=== PATIENT | female | born 1945 | race Caucasian/White ===

== ENCOUNTER 2016-09-25 07:46 | Day surgery (SDC) | payer MEDICARE, BC ==
[~2016-09-25 07:46] MED LIST: Lactated Ringers 1,000 ML IV SCH; Lidocaine 1%/Sod Bicarbonate in NS 8.4% 1 ML Syringe PRN; Sodium Chloride 0.9% 10 ML Syringe FLUSH PRN
--- NOTE | 2016-09-25 09:39 | PCM.PREANE ---
Preanesthetic Assessment - Anesthesia/Transfusion/Family Hx Anesthesia History: Prior Anesthesia Without Reaction Type of Anesthesia Reaction: Other (see below) Family History of Anesthesia Reaction: No Type of Transfusion Reactions: Reports: Unknown - Review of Systems General: No Symptoms Pulmonary: No Symptoms, Shortness of Breath, Other (current smoker, utilizes nebulizers TID, asthma, COPD) Cardiovascular: No Symptoms, Other (HTN) Gastrointestinal: Other (GERD, espphagitis) Other: Reports: Anxiety - Physical Assessment NPO Status Date: 09/24/16 NPO Status Time: 19:00 O2 Sat by Pulse Oximetry: 112 Respiratory Rate: 16 Blood Pressure: 145/84 Vital Signs: Last Vital Signs Temp 36.3 C 09/25/16 07:55 Pulse 112 H 09/25/16 07:55 Resp 16 09/25/16 07:55 BP 145/84 H 09/25/16 07:55 Pulse Ox 95 09/25/16 07:55 Height: 1.73 m Weight: 86.183 kg ASA Class: 3 Mental Status: Alert & Oriented x3 Airway Class: Mallampati = 2 Dentition: Reports: Dentures, Edentulous Thyro-Mental Finger Breadths: 3 Mouth Opening Finger Breadths: 3 ROM/Head Extension: Full Lungs: Clear to auscultation, Wheezing (expiratory wheezes noted) Cardiovascular: Regular Rate, Regular Rhythm - Allergies Allergies/Adverse Reactions: Allergies Allergy/AdvReac Type Severity Reaction Status Date / Time No Known Allergies Allergy Verified 09/25/16 08:34 - Blood Blood Available: No Product(s) Available: None - Anesthesia Plan Pre-Op Medication Ordered: None - Acknowledgements Anesthesia Type Planned: MAC Pt an Appropriate Candidate for the Planned Anesthesia: Yes Alternatives and Risks of Anesthesia Discussed w Pt/Guardian: Yes Pt/Guardian Understands and Agrees with Anesthesia Plan: Yes PreAnesthesia Questionnaire HEENT History: Reports: Glaucoma Respiratory History: Reports: Asthma, COPD Gastrointestinal History: Reports: Colon Polyp, Gastritis, GERD Musculoskeletal History: Reports: Osteoporosis Psychiatric History: Reports: Anxiety, Depression Endocrine/Metabolic History: Reports: Osteoporosis Hematologic History: Reports: Anemia Oncologic (Cancer) History: Reports: None - Past Surgical History HEENT Surgical History: Reports: Adenoidectomy, Cataract Surgery, Laser Surgery , Oral Surgery, Tonsillectomy GI Surgical History: Reports: Colonoscopy, EGD, Polypectomy Oncologic Surgical History: Reports: Biopsy of Breast - SUBSTANCE USE Smoking Status *Q: Current Every Day Smoker Tobacco Use Within Last Twelve Months: Cigarettes Days Per Week of Alcohol Use: 0 Recreational Drug Use History: No - HOME MEDS Home Medications: Home Meds Albuterol Sulfate 1 puff INH ASDIRECTED PRN 11/18/13 [History] Venlafaxine [Effexor] 150 mg PO DAILY 11/18/13 [History] Albuterol/Ipratropium [DuoNeb 3.0-0.5 MG/3 ML] 3 ml INH TID 10/18/15 [History] Budesonide [Pulmicort] 1 puff INH BID 10/18/15 [History] Cyanocobalamin (Vitamin B-12) [Vitamin B-12] 1,000 mcg INJECT WEEKLY 10/18/15 [ History] Denosumab [Prolia] 60 mg SUBCUT ASDIRECTED 10/18/15 [History] LORazepam [Ativan] 1 mg PO ASDIRECTED PRN 10/18/15 [History] Montelukast [Singulair] 10 mg PO DAILY 10/18/15 [History] Olopatadine [Patanol 0.1% Ophth Soln] 1 drop EYEBOTH ASDIRECTED PRN 10/18/15 [ History] Travoprost [Travatan Z 0.004% Ophth Soln] 1 drop EYEBOTH DAILY 10/18/15 [History ] Triamcinolone Acetonide [Nasacort] 1 spray NASBOTH DAILY 10/18/15 [History] busPIRone [Buspar] 5 mg PO DAILY 10/18/15 [History] guaiFENesin [Mucinex] 600 mg PO DAILY 10/18/15 [History] Pantoprazole Sodium [Protonix] 40 mg PO BID #90 tablet. 10/19/15 [Rx] Sucralfate [Carafate] 1 gm PO QIDACANDBED #120 tab 10/19/15 [Rx] - CURRENT (IN HOUSE) MEDS Current Meds: Current Medications Lactated Ringer's (Ringers, Lactated) 1,000 mls @ 125 mls/hr IV ASDIRECTED MAIA Stop: 09/25/16 23:00 Last Admin: 09/25/16 08:07 Dose: 125 mls/hr Lidocaine/Sodium Bicarbonate (Buffered Lidocaine 1% In Ns 8.4%) 0.25 ml .XX ONETIME PRN PRN Reason: Prior to IV Start Stop: 09/25/16 18:00 Last Admin: 09/25/16 08:07 Dose: 0.25 ml Sodium Chloride (Saline Flush) 10 ml FLUSH ASDIRECTED PRN PRN Reason: Keep Vein Open Stop: 09/25/16 18:00
[2016-09-25] MEDS ORDERED: fentaNYL 100 MCG/2 ML SDV ONE (09:51)
[2016-09-25] MEDS ORDERED: Propofol 200 MG/20 ML SDV ONE ×2 (09:51→10:15)
[2016-09-25] MEDS ORDERED: Lidocaine 1% 4 ML ONE (09:52)
--- NOTE | 2016-09-25 10:09 | PCM.OPNOTE ---
- General Post-Op/Procedure Note Date of Surgery/Procedure: 09/25/16 Operative Procedure(s): colonoscopy to 50 c m Pre Op Diagnosis: hx of colonic polyps Post-Op Diagnosis: Same Anesthesia Technique: MAC Primary Surgeon: Hitesh Simental EBL in mLs: 0 Complications: None Condition: Good
--- NOTE | 2016-09-25 10:15 | PCM48HPAN ---
Post Anesthesia Note - EVALUATION WITHIN 48HRS OF ANESTHETIC Vital Signs in Normal Range: Yes Patient Participated in Evaluation: Yes Respiratory Function Stable: Yes Airway Patent: Yes Cardiovascular Function Stable: Yes Hydration Status Stable: Yes Pain Control Satisfactory: Yes Nausea and Vomiting Control Satisfactory: Yes Mental Status Recovered: Yes
[2016-09-25 11:32] VITALS: BP 147/51
--- NOTE | 2016-09-26 07:22 | OR ---
DATE OF OPERATION: 09/25/2016 SURGEON: Hitesh Simental MD PREOPERATIVE DIAGNOSIS: History of colonic polyps. POSTOPERATIVE DIAGNOSIS: History of colonic polyps. OPERATION PERFORMED: Colonoscopy to 50 cm, unable to go beyond this because of inability to expand the colon, control the loop, and advancement of the scope was not possible. ANESTHESIA: IV sedation. FINDINGS: Sigmoid diverticulosis. DESCRIPTION OF PROCEDURE: The patient was taken to the operating room, placed in a supine position, connected to monitoring equipment, given IV sedation, and placed in left lateral position. The perianal area was inspected and was unremarkable. Rectal exam showed good sphincter tone. A video Olympus colonoscope was introduced into the rectum and threaded up to about 40 cm. Unable to advance the scope beyond this, forward movement of the scope would not allow forward progression of the tip of the scope and it would just expand the loop which was not able to be controlled by external pressure. Furthermore, we could not control the expansion of the of the colon for a good view, it would just be expelled, and the nurse was unable to prevent this by external pressure. Prep was excellent. The scope was slowly withdrawn, did not show any pathology other than diverticulosis. A portion of the sigmoid colon and rectum were seen. The patient tolerated the procedure and sent to recovery room in a stable condition. ESTIMATED BLOOD LOSS: MMODAL /[id number]
== END 2016-09-25 11:20 | disposition home or self-care (01) ==
LOC: JD.SDS 07:46
PROVIDERS: ATTEND Surgery
PROC: 0DJD8ZZ Inspection of Lower Intestinal Tract, Via Natural or Artificial Opening Endoscopic (ICD-10-PCS; principal; 2016-09-25)
DX: K57.30 Diverticulosis of large intestine without perforation or abscess without bleeding (principal); K22.10 Ulcer of esophagus without bleeding; K29.70 Gastritis, unspecified, without bleeding; J44.9 Chronic obstructive pulmonary disease, unspecified; M81.0 Age-related osteoporosis without current pathological fracture; D51.0 Vitamin B12 deficiency anemia due to intrinsic factor deficiency; I10 Essential (primary) hypertension; H40.9 Unspecified glaucoma; F32.9 Major depressive disorder, single episode, unspecified; F41.9 Anxiety disorder, unspecified; F17.210 Nicotine dependence, cigarettes, uncomplicated; Z79.899 Other long term (current) drug therapy; Z90.49 Acquired absence of other specified parts of digestive tract; Z98.49 Cataract extraction status, unspecified eye; Z98.890 Other specified postprocedural states; Z86.010 Personal history of colon polyps; Z87.440 Personal history of urinary (tract) infections
CPT/HCPCS: 45330; J3010; J7120; J2704

== ENCOUNTER 2017-11-16 09:06 | Day surgery (SDC) | payer MEDICARE, BC ==
[2017-11-16] MEDS: Lactated Ringers 1,000 ML IV SCH (09:15)
[2017-11-16] MEDS: Lidocaine 1%/Sod Bicarbonate in NS 8.4% 1 ML Syringe IDERM PRN (09:25)
[2017-11-16] MEDS ORDERED: Sodium Chloride 0.9% 10 ML Syringe FLUSH PRN (09:27)
--- NOTE | 2017-11-16 09:57 | PCM.PREANE ---
Preanesthetic Assessment - Procedure Proposed Procedure: Diagnostic colonoscopy - Anesthesia/Transfusion/Family Hx Anesthesia History: Prior Anesthesia Without Reaction Family History of Anesthesia Reaction: No Transfusion History: No Prior Transfusion(s) Type of Transfusion Reactions: Reports: Unknown - Review of Systems General: No Symptoms Pulmonary: Other (Asthma, COPD, current smoker- uses inhaler and nebulizer daiily ) Cardiovascular: Other (HTN) Gastrointestinal: Other (GERD) Neurological: Other (tinnitus ) Other: Reports: Depression, Anxiety - Physical Assessment NPO Status Date: 11/15/17 NPO Status Time: 23:45 O2 Sat by Pulse Oximetry: 99 Respiratory Rate: 16 Vital Signs: Last Vital Signs Temp 37.4 C 11/16/17 09:15 Pulse 88 11/16/17 09:15 Resp 16 11/16/17 09:15 BP 148/75 H 11/16/17 09:15 Pulse Ox 99 11/16/17 09:15 Height: 1.7 m Weight: 73.482 kg ASA Class: 3 Mental Status: Alert & Oriented x3 Airway Class: Mallampati = 1 Dentition: Reports: Dentures (upper and lower ) Thyro-Mental Finger Breadths: 3 Mouth Opening Finger Breadths: 3 ROM/Head Extension: Full Lungs: Clear to Auscultation, Normal Respiratory Effort Cardiovascular: Regular Rate, Regular Rhythm - Allergies Allergies/Adverse Reactions: Allergies Allergy/AdvReac Type Severity Reaction Status Date / Time No Known Allergies Allergy Verified 11/15/17 11:47 - Blood Blood Available: No Product(s) Available: None - Anesthesia Plan Pre-Op Medication Ordered: None - Acknowledgements Anesthesia Type Planned: MAC Pt an Appropriate Candidate for the Planned Anesthesia: Yes Alternatives and Risks of Anesthesia Discussed w Pt/Guardian: Yes Pt/Guardian Understands and Agrees with Anesthesia Plan: Yes PreAnesthesia Questionnaire HEENT History: Reports: Allergic Rhinitis, Glaucoma, Sinusitis Cardiovascular History: Reports: Hypertension Respiratory History: Reports: Asthma, COPD Gastrointestinal History: Reports: Colon Polyp, Gastritis, GERD, Other (See Below) Other Gastrointestinal History: esophagitis, duodenitis, diverticulosis Genitourinary History: Reports: None CLIN TECH History: Reports: Other (See Below) Other OB/BYN History: diffuse cystic mastopathy, breast surgery Musculoskeletal History: Reports: Osteoporosis Neurological History: Reports: None Psychiatric History: Reports: Anxiety, Depression Endocrine/Metabolic History: Reports: Osteoporosis Hematologic History: Reports: Anemia Immunologic History: Reports: None Oncologic (Cancer) History: Reports: None Dermatologic History: Reports: None - Past Surgical History Head Surgeries/Procedures: Reports: None HEENT Surgical History: Reports: Adenoidectomy, Cataract Surgery, Laser Surgery , Oral Surgery, Tonsillectomy Respiratory Surgical History: Reports: None GI Surgical History: Reports: Colonoscopy, EGD, Polypectomy Female Surgical History: Reports: Breast Biopsy Male Surgical History: Reports: None Endocrine Surgical History: Reports: None Neurological Surgical History: Reports: None Musculoskeletal Surgical History: Reports: None Oncologic Surgical History: Reports: Biopsy of Breast Dermatological Surgical History: Reports: None - SUBSTANCE USE Smoking Status *Q: Current Every Day Smoker (1ppd for 47years) Recreational Drug Use History: No - HOME MEDS Home Medications: Home Meds Albuterol Sulfate 1 puff INH ASDIRECTED PRN 11/18/13 [History] Venlafaxine [Effexor] 150 mg PO DAILY 11/18/13 [History] Albuterol/Ipratropium [DuoNeb 3.0-0.5 MG/3 ML] 3 ml INH TID 10/18/15 [History] Budesonide [Pulmicort] 1 dose INH BID 10/18/15 [History] Cyanocobalamin (Vitamin B-12) [Vitamin B-12] 1,000 mcg INJECT Q14D 10/18/15 [ History] Denosumab [Prolia] 60 mg SUBCUT ASDIRECTED 10/18/15 [History] Olopatadine [Patanol 0.1% Ophth Soln] 1 drop EYEBOTH BID PRN 10/18/15 [History] guaiFENesin [Mucinex] 600 mg PO DAILY PRN 10/18/15 [History] Dexamethasone/Tobramycin [Tobradex Ophth Susp] 1 drop EYEBOTH TID 11/15/17 [ History] Ferrous Sulfate [Iron] 1 tab PO DAILY 11/15/17 [History] Fluticasone Propionate [Flonase] 1 - 2 spray NASBOTH DAILY 11/15/17 [History] Fluticasone/Vilanterol [Breo Ellipta 200-25 Mcg INH] 1 puff INH DAILY 11/15/17 [ History] Latanoprost 1 drop EYEBOTH DAILY 11/15/17 [History] Loteprednol Etabonate [Alrex] 1 drop EYEBOTH TID 11/15/17 [History] Melatonin 5 mg PO BEDTIME 11/15/17 [History] Ondansetron [Ondansetron ODT] 4 mg PO Q4H PRN 11/15/17 [History] Rosuvastatin Calcium 5 mg PO DAILY 11/15/17 [History] busPIRone [Buspar] 10 mg PO TID 11/15/17 [History] hydrOXYzine pamoate [Vistaril] 25 mg PO TID PRN 11/15/17 [History] - CURRENT (IN HOUSE) MEDS Current Meds: Current Medications Lactated Ringer's (Ringers, Lactated) 1,000 mls @ 125 mls/hr IV ASDIRECTED MAIA Stop: 11/16/17 23:00 Last Admin: 11/16/17 09:15 Dose: 125 mls/hr Lidocaine/Sodium Bicarbonate (Buffered Lidocaine 1% In Ns 8.4%) 0.25 ml IDERM ONETIME PRN PRN Reason: Prior to IV Start Stop: 11/16/17 18:00 Last Admin: 11/16/17 09:25 Dose: 0.25 ml Sodium Chloride (Saline Flush) 10 ml FLUSH ASDIRECTED PRN PRN Reason: Keep Vein Open Stop: 11/16/17 18:00
[2017-11-16] MEDS ORDERED: fentaNYL 100 MCG/2 ML SDV ONE (10:13)
[2017-11-16] MEDS ORDERED: Propofol 200 MG/20 ML SDV ONE ×3 (10:13→11:34)
[2017-11-16] MEDS ORDERED: Lidocaine 1% 4 ML ONE (10:13)
--- NOTE | 2017-11-16 11:59 | PCM48HPAN ---
Post Anesthesia Note - EVALUATION WITHIN 48HRS OF ANESTHETIC Vital Signs in Normal Range: Yes Patient Participated in Evaluation: Yes Respiratory Function Stable: Yes Airway Patent: Yes Cardiovascular Function Stable: Yes Hydration Status Stable: Yes Pain Control Satisfactory: Yes Nausea and Vomiting Control Satisfactory: Yes Mental Status Recovered: Yes Pulse Rate: 74 SaO2: 92 Resp Rate: 16 Temperature: 36.4 C Blood Pressure: 107/75
--- NOTE | 2017-11-16 12:00 | PCM.OPNOTE ---
- General Post-Op/Procedure Note Date of Surgery/Procedure: 11/16/17 Operative Procedure(s): survillance colonoscopy with polypectomy- incomplete Findings: diffuse small polyps (1-3mm) in the rectum and sigmoid colon; large diverticula in the sigmoid and inability to pass scope through the colon past the sigmoid a at 25cm Pre Op Diagnosis: history of colon polyps Post-Op Diagnosis: history of colon polyps Anesthesia Technique: MAC Primary Surgeon: Ella Sanches Secondary Surgeon: Hitesh Simental Anesthesia Provider: Adam Piedra Pathology: 1. Sigmoid polyp 2. Sigmoid polyp 3. Rectum polyp Fluid Replacement, Intraop: 1,200 Output, Urine Amount: 0 EBL in mLs: 0 Complications: None apparent Condition: Good
[2017-11-16 12:21] VITALS: BP 107/66
--- NOTE | 2017-11-16 13:09 | PCM.PRNOTE ---
- Free Text/Narrative Note: Operative Report Date of Surgery/Procedure: 11/16/17 Operative Procedure: Surveillance Colonoscopy with biopsy- incomplete Pre Op Diagnosis: colorectal cancer surveillance Post-Op Diagnosis: same Surgeon: Ella Sanches MD and Hitesh Simental MD Anesthesia Technique: MAC Anesthesia Provider: Adam Piedra IV Fluid Replacement, Intraop: 1200 cc Output, Urine Amount: , 0 cc EBL : 0 cc Findings: Diffuse small polyps (1-3 mm). In the rectum and sigmoid. Inability to traverse past the sigmoid, approximately 25 cm due to diverticula and patient anatomy. Procedure terminated at this point, after multiple unsucessful attempts to pass through this area. Specimens: 1. Sigmoid polyp 2. Sigmoid polyp 3. Rectum polyp Indication: The patient is a 72 year-old lady who presented to the outpatient clinic requesting colorectal cancer surveillance screening. The patient has a history of . Colon polyps that revealed tubular adenoma, as well as some other pathology. She reports that her previous colonoscopy experience was very traumatic and was very hesitant to undergo repeat colonoscopy because of her anxiety. We discussed the procedure of a surveillance colonoscopy including the polypectomy and biopsy, and the benefits of therapeutic and diagnostic maneuvers available with colonoscopy. Risks of bleeding and perforation were discussed, the patient understood and wished to proceed. Written and consent was obtained Description of the procedure: The patient was brought to the endoscopy suite and placed in the left lateral decubitus position. Appropriate monitors were applied. The patient was given MAC anesthesia. An anorectal examination was performed, revealing normal external anatomy. The scope was placed into the rectum and advanced to the sigmoid colon with some difficulty requiring multiple attempts and abdominal pressure. There were many folds in the colon as well as large diverticula that looked like false passages. The scope could not be advanced past 25 cm without risk of perforation. At this point, the scope was withdrawn, paying careful attention to the mucosa. The patient had adequate bowel prep, allowing for visualization of 85 % of the mucosa. Multiple, diffuse small polyps (1-3mm) in the rectum and sigmoid was noted. Biopsies were taken of the sigmoid and rectum polyps In the rectum, the scope was unable to be retroflexed. the procedure was terminated. The patient tolerated the procedure well. She will follow up in my office for discussion of pathology. I would recommend a barium enema at this point to complete screening of the colon. I notified the patient of my recommendation. Complications: none apparent Condition: Good, transported to PACU in stable condition Ella Sanches MD General Surgery
== END 2017-11-16 12:51 | disposition home or self-care (01) ==
LOC: JD.SDS 09:06
PROVIDERS: ATTEND Surgery
DX: Z12.11 Encounter for screening for malignant neoplasm of colon (principal); K63.5 Polyp of colon; K62.1 Rectal polyp; K57.30 Diverticulosis of large intestine without perforation or abscess without bleeding; J44.9 Chronic obstructive pulmonary disease, unspecified; I10 Essential (primary) hypertension; F17.210 Nicotine dependence, cigarettes, uncomplicated; F41.8 Other specified anxiety disorders; K21.9 Gastro-esophageal reflux disease without esophagitis; Z86.010 Personal history of colon polyps; Z79.51 Long term (current) use of inhaled steroids; Z79.899 Other long term (current) drug therapy
CPT/HCPCS: 00811; 88305; J2001; J2704; J3010; J7120

== ENCOUNTER 2018-05-26 11:28 | Emergency (ER) | payer MEDICARE, BC ==
[2018-05-26 11:40] VITALS: BP 167/85
[2018-05-26] MEDS ORDERED: Ondansetron 4 MG/2 ML SDV IVPUSH ONE (12:02)
[2018-05-26] MEDS ORDERED: Sodium Chloride 0.9% 1,000 ML IV ONE (12:05)
--- NOTE | 2018-05-26 12:12 | EDM.PDOC ---
ED HPI GENERAL MEDICAL PROBLEM - General Chief Complaint: General Stated Complaint: LOWER RIGHT ABDOMINAL PAIN Time Seen by Provider: 05/26/18 11:43 Source of Information: Reports: Patient, RN Notes Reviewed History Limitations: Reports: No Limitations - History of Present Illness INITIAL COMMENTS - FREE TEXT/NARRATIVE: Patient is a 72-year-old female who presents to the ED for evaluation of right lower quadrant pain. The patient states that she has been to the clinic last week for a possible vaginal infection for which she is taking a vaginal suppository and an oral antibiotic. She thinks that the vaginal suppository was metronidazole and the oral antibiotic was a azithromycin. She did see Phyllis Ardon in the clinic last week for this. She was told that if the pain worsened that she was to come to the ER for evaluation. She states her primary care provider is Lucia Ramirez. She would rate her pain at a 7 or 8 out of 10. She states that the pain is worsened with urination. She states this to be a sharp pain in nature. She noted this morning when she voided that there was discharge present. The patient is but denies sexual activity. The patient notes a history of anxiety, and she was treated for interstitial cystitis quite a few years back. She also states that she had an MRI done last month, and she was found to have some right lower abdominal abnormality. She states that they have not told her exactly what this was or have figured it out completely, she states that she has a follow-up MRI scheduled for June 05 for this. She states that she is not having much for nausea/vomiting/diarrhea, she did have a normal bowel movement this morning. She cannot say whether she has had fevers or chills but has not felt hot or cold. She notes that she is just having this right lower quadrant abdominal pain. She has not had any abdominal surgeries so subsequently still has her uterus, ovaries, and her appendix. 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 Right Pelvic Pain Score (Numeric/FACES): 8 - Related Data Allergies Allergy/AdvReac Type Severity Reaction Status Date / Time No Known Allergies Allergy Verified 05/26/18 11:37 Home Meds: Home Meds Albuterol Sulfate 1 puff INH ASDIRECTED PRN 11/18/13 [History] Venlafaxine [Effexor] 150 mg PO DAILY 11/18/13 [History] Albuterol/Ipratropium [DuoNeb 3.0-0.5 MG/3 ML] 3 ml INH TID 10/18/15 [History] Budesonide [Pulmicort] 1 dose INH BID 10/18/15 [History] Cyanocobalamin (Vitamin B-12) [Vitamin B-12] 1,000 mcg INJECT Q14D 10/18/15 [ History] Denosumab [Prolia] 60 mg SUBCUT ASDIRECTED 10/18/15 [History] Olopatadine [Patanol 0.1% Ophth Soln] 1 drop EYEBOTH BID PRN 10/18/15 [History] guaiFENesin [Mucinex] 600 mg PO DAILY PRN 10/18/15 [History] Dexamethasone/Tobramycin [Tobradex Ophth Susp] 1 drop EYEBOTH TID 11/15/17 [ History] Ferrous Sulfate [Iron] 1 tab PO DAILY 11/15/17 [History] Fluticasone Propionate [Flonase] 1 - 2 spray NASBOTH DAILY 11/15/17 [History] Fluticasone/Vilanterol [Breo Ellipta 200-25 Mcg INH] 1 puff INH DAILY 11/15/17 [ History] Latanoprost 1 drop EYEBOTH DAILY 11/15/17 [History] Loteprednol Etabonate [Alrex] 1 drop EYEBOTH TID 11/15/17 [History] Melatonin 5 mg PO BEDTIME 11/15/17 [History] Ondansetron [Ondansetron ODT] 4 mg PO Q4H PRN 11/15/17 [History] Rosuvastatin Calcium 5 mg PO DAILY 11/15/17 [History] busPIRone [Buspar] 10 mg PO TID 11/15/17 [History] hydrOXYzine pamoate [Vistaril] 25 mg PO TID PRN 11/15/17 [History] Past Medical History HEENT History: Reports: Allergic Rhinitis, Glaucoma, Sinusitis Cardiovascular History: Reports: Hypertension Respiratory History: Reports: Asthma, COPD Gastrointestinal History: Reports: Colon Polyp, Gastritis, GERD, Other (See Below) Other Gastrointestinal History: esophagitis, duodenitis, diverticulosis Genitourinary History: Reports: None 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 Below) Other SALES PLANNING ANALYST History: diffuse cystic mastopathy, breast surgery Musculoskeletal History: Reports: Osteoporosis Neurological History: Reports: None Psychiatric History: Reports: Anxiety, Depression Endocrine/Metabolic History: Reports: Osteoporosis Hematologic History: Reports: Anemia, Other (See Below) Other Hematologic History: pernicious anemia Immunologic History: Reports: None Oncologic (Cancer) History: Reports: None Dermatologic History: Reports: None - Past Surgical History Head Surgeries/Procedures: Reports: None HEENT Surgical History: Reports: Adenoidectomy, Cataract Surgery, Laser Surgery , Oral Surgery, Tonsillectomy Respiratory Surgical History: Reports: None GI Surgical History: Reports: Colonoscopy, EGD, Polypectomy Female Surgical History: Reports: Breast Biopsy Endocrine Surgical History: Reports: None Neurological Surgical History: Reports: None Musculoskeletal Surgical History: Reports: None Oncologic Surgical History: Reports: Biopsy of Breast Dermatological Surgical History: Reports: None Social & Family History - Tobacco Use Smoking Status *Q: Current Every Day Smoker Years of Tobacco use: 42 Packs/Tins Daily: 0.2 - Caffeine Use Caffeine Use: Reports: Coffee - Recreational Drug Use Recreational Drug Use: No - Living Situation & Occupation Living situation: Reports: ED ROS GENERAL - Review of Systems Review Of Systems: See Below Constitutional: Reports: No Symptoms HEENT: Reports: No Symptoms Respiratory: Reports: No Symptoms Cardiovascular: Reports: No Symptoms, Palpitations GI/Abdominal: Reports: Abdominal Pain (RLQ) : Reports: Discharge, Dysuria. Denies: Hematuria, Urgency Musculoskeletal: Reports: No Symptoms Skin: Reports: No Symptoms Neurological: Reports: No Symptoms Psychiatric: Reports: No Symptoms Hematologic/Lymphatic: Reports: No Symptoms ED EXAM, GENERAL - Physical Exam Exam: See Below Exam Limited By: No Limitations General Appearance: Alert, WD/WN, No Apparent Distress Ears: Normal External Exam Nose: Normal Inspection Throat/Mouth: Normal Inspection, Normal Oropharynx, No Airway Compromise Head: Atraumatic, Normocephalic Neck: Normal Inspection Respiratory/Chest: No Respiratory Distress, Lungs Clear, Normal Breath Sounds, No Accessory Muscle Use, Chest Non-Tender Cardiovascular: Normal Peripheral Pulses, Regular Rate, Rhythm, No Murmur GI/Abdominal: Normal Bowel Sounds, Soft, No Distention, No Mass, Tender (RLQ tenderness over McBurney's point, slight tenderness over epigastrium). No: Rigid, Rebound (Female) Exam: Normal External Exam, Normal Speculum Exam, Adnexal Tenderness (Right sided), Vaginal Discharge (scant amount of white discharge present in vaginal vault), Other (there is either a full bladder present, or enlarged/hardened uterus on bimanual exam.) Extremities: Normal Inspection, Normal Capillary Refill Neurological: Alert, Oriented, Normal Cognition, No Motor/Sensory Deficits Psychiatric: Normal Affect, Normal Mood Skin Exam: Warm, Dry, Intact, Normal Color, No Rash Course - Vital Signs Last Recorded V/S: Last Vital Signs Temp 97 F 05/26/18 11:37 Pulse 93 05/26/18 11:37 Resp 20 05/26/18 11:37 BP 167/85 H 05/26/18 11:37 Pulse Ox 100 05/26/18 11:37 - Orders/Labs/Meds Orders: Active Orders 24 hr Category Date Time Status CULTURE URINE [RM] Stat Lab 05/26/18 13:39 Ordered Sodium Chloride 0.9% [Normal Saline] 1,000 ml Med 05/26/18 12:05 Ordered IV ASDIRECTED Sodium Chloride 0.9% [Saline Flush] Med 05/26/18 13:33 Active 10 ml FLUSH ONETIME PRN Medication Orders Sodium Chloride (Normal Saline) 1,000 mls @ 250 mls/hr IV ASDIRECTED ONE Stop: 05/26/18 16:04 Last Admin: 05/26/18 12:19 Dose: 250 mls/hr Sodium Chloride (Saline Flush) 10 ml FLUSH ONETIME PRN PRN Reason: IV FLUSH Last Admin: 05/26/18 13:54 Dose: 10 ml Labs: Laboratory Tests 05/26/18 05/26/18 05/26/18 Range/Units 12:10 12:10 12:38 WBC 9.75 (3.98-10.04) K/mm3 RBC 3.89 L (3.98-5.22) M/mm3 Hgb 12.6 (11.2-15.7) gm/L Hct 39.4 (34.1-44.9) % MCV 101.3 H (79.4-94.8) fl MCH 32.4 H (25.6-32.2) pg MCHC 32.0 L (32.2-35.5) g/dl RDW Std Deviation 49.0 H (36.4-46.3) fL Plt Count 235 (182-369) K/mm3 MPV 9.5 (9.4-12.3) fl Neutrophils % (Manual) 70 H (40-60) % Band Neutrophils % 0 (0-10) % Lymphocytes % (Manual) 25 (20-40) % Atypical Lymphs % 0 % Monocytes % (Manual) 4 (2-10) % Eosinophils % (Manual) 0 L (0.7-5.8) % Basophils % (Manual) 1 (0.1-1.2) Toxic Granulation 1+ slight Platelet Estimate Adequate Plt Morphology Comment Normal Hypochromasia 1+ slight Anisocytosis 1+ slight Macrocytosis 1+ slight RBC Morph Comment Not Reportable Sodium 142 (136-145) mEq/L Potassium 3.4 L (3.5-5.1) mEq/L Chloride 106 (98-107) mEq/L Carbon Dioxide 29 (21-32) mEq/L Anion Gap 10.4 (5-15) BUN 23 H (7-18) mg/dL Creatinine 1.4 H (0.55-1.02) mg/dL Est Cr Clr Drug Dosing 36.36 mL/min Estimated GFR (MDRD) 37 (>60) mL/min BUN/Creatinine Ratio 16.4 (14-18) Glucose 93 (80-115) mg/dL Calcium 8.7 (8.5-10.1) mg/dL Total Bilirubin 0.4 (0.2-1.0) mg/dL AST 15 (15-37) U/L ALT 21 (14-59) U/L Alkaline Phosphatase 57 (46-116) U/L C-Reactive Protein < 0.2 (<1.0) mg/dL Total Protein 6.4 (6.4-8.2) g/dl Albumin 3.1 L (3.4-5.0) g/dl Globulin 3.3 gm/dL Albumin/Globulin Ratio 0.9 L (1-2) Lipase 283 (73-393) U/L Urine Color Dark yellow (Yellow) Urine Appearance Clear (Clear) Urine pH 6.0 (5.0-8.0) Ur Specific [place] 1.020 (1.005-1.030) Urine Protein Negative (Negative) Urine Glucose (UA) Negative (Negative) Urine Ketones Trace H (Negative) Urine Occult Blood Negative (Negative) Urine Nitrite Negative (Negative) Urine Bilirubin Negative (Negative) Urine Urobilinogen 0.2 (0.2-1.0) Ur Leukocyte Esterase Trace H (Negative) Urine RBC 0-5 (0-5) /hpf Urine WBC 0-5 (0-5) /hpf Ur Epithelial Cells 0-5 (0-5) /hpf Urine Bacteria Moderate H (FEW) /hpf Hyaline Casts 0-5 (0-5) /lpf Urine Mucus Moderate H (FEW) /hpf Meds: Medications Generic Name Dose Route Start Last Admin Trade Name Freq PRN Reason Stop Dose Admin Sodium Chloride 1,000 mls @ 250 mls/hr 05/26/18 12:05 05/26/18 12:19 Normal Saline IV 05/26/18 16:04 250 mls/hr ASDIRECTED ONE Administration Sodium Chloride 10 ml 05/26/18 13:33 05/26/18 13:54 Saline Flush FLUSH 10 ml ONETIME PRN Administration IV FLUSH Discontinued Medications Generic Name Dose Route Start Last Admin Trade Name Freq PRN Reason Stop Dose Admin Diatrizoate Meglum/Diatrizoate Sod 120 ml 05/26/18 13:33 05/26/18 13:54 Gastrografin 37% PO 05/26/18 13:34 90 ml ONETIME ONE Administration Iopamidol 100 ml 05/26/18 13:33 05/26/18 13:54 Isovue-300 (61%) IVPUSH 05/26/18 13:34 100 ml ONETIME ONE Administration Ondansetron HCl 4 mg 05/26/18 12:02 05/26/18 12:19 Zofran IVPUSH 05/26/18 12:03 4 mg ONETIME ONE Administration - Radiology Interpretation Free Text/Narrative:: CT abdomen and pelvis Technique: Multiple axial sections were obtained from above the dome of the diaphragm inferiorly through the pubic symphysis. Intravenous and oral contrast was utilized. Delayed images were also obtained from above the dome of the diaphragm inferiorly through the pubic symphysis. Comparison: No prior abdominal imaging. Findings: Soft tissue abnormality is seen within the right side of the pelvis. This appears to extend around the terminal ileum and extending into the ileocecal valve. This abnormality has a craniocaudal dimension of 7.8 cm with transverse dimension of 3.5 cm and AP dimension of approximately 9.3 cm. Small amount of free fluid noted within the pelvis. Right kidney shows rather severe hydronephrosis with dilated ureter down to this pelvic mass. This finding causes obstruction of the right ureter. This finding is most likely neoplastic in origin. Less likely etiology would be very prominent inflammatory change which is felt to be much less likely in etiology. Left kidney shows no hydronephrosis. Left ureter on delayed images shows contrast within it down to the bladder. Visualized lung bases shows a small nodule within the right base measuring around 3.5 mm. Lung bases are otherwise clear. Small hiatal hernia is noted. Spleen appears within normal limits. Liver contains no focal abnormality. Appendix is seen and is normal in size. Pancreas appears within normal limits. Adrenal glands show no nodule. Gallbladder contains no calcified gallstones. Aorta shows no aneurysm with atherosclerotic change. No retroperitoneal adenopathy is seen. No mesenteric abnormalities are seen. No additional pelvic abnormality is appreciated. Bone window settings were reviewed which shows scattered degenerative change within the spine. No acute osseous abnormality is appreciated. Impression: 1. Soft tissue mass within the right side of the pelvis extending around the terminal ileum into the ileocecal valve. Findings most likely are neoplastic and uncertain if this represents tumor from the ileocecal valve and terminal ileum or represents ovarian or other pelvic tumor extending into the ileocecal valve and around the terminal ileum. 2. Fairly severe hydronephrosis of the right kidney and right ureter. This finding appears to be caused by the right sided pelvic mass. 3. Small amount of increased fluid within the pelvis. 4. Small nonspecific 3.5 mm nodule within the right lung base. 5. No other acute abnormality is seen. - Re-Assessments/Exams Free Text/Narrative Re-Assessment/Exam: 05/26/18 12:18 Pt presents to the ED for RLQ pain. I have ordered a UA, CRP, CBC, CMP, lipase, IV fluids, 4 mg Zo[address] and abdominal CT for evaluation of her RLQ pain. Due to her reported history of "something wrong" in her right lower abdomen, I cannot be certain that this may be an appendix issue vs. ovary issue. Pt is on appropriate antibiotics for possible BV (I am assuming this is what she is being treated for, although she did not bring her medications with her and she thought metronidazole sounded right). 05/26/18 13:42 Labs have returned and are essentially within normal limits. She does have anemia but she states that she has a history of pernicious anemia, for which she takes B12 shots. Lipase is within normal limits, and her urine shows no acute signs of infection, however I am going to send this for culture. 05/26/18 15:25 CT results are back and demonstrate that she does in fact have a mass in her right pelvic area, as she stated per her history. Our radiologist feels that this is neoplastic in origin and cannot differentiate if it is coming from the colon or is ovarian in nature. I did make the patient aware of this this news, I have sent an order for an outpatient PET scan. I am hoping that radiology will call her first thing tomorrow to get this scheduled with her for further evaluation. I did recommend that she call Lucia Ramirez's office for a follow- up appointment tomorrow or the next day for further evaluation of this pelvic mass. I am aware however that she did have an MRI and there was a mass present at that time one month ago, what I am not sure of his if they made her aware of what they thought it could be. The patient does understand that this is strongly suggestive of being cancerous. Departure - Departure Time of Disposition: 15:29 Disposition: Home, Self-Care 01 Condition: Fair Clinical Impression: RLQ abdominal pain, Pelvic mass in female - Discharge Information *PRESCRIPTION DRUG MONITORING PROGRAM REVIEWED*: No *COPY OF PRESCRIPTION DRUG MONITORING REPORT IN PATIENT FILIBERTO: No Referrals: Lucia Ramirez PA-C [Primary Care Provider] - Forms: ED Department Discharge Additional Instructions: You have been evaluated in the ED today for your right lower quadrant pain. Your labs were not suggestive of any type of bacterial infection. Your urine screen was sent for culture, You will be notified if you need any further treatment for urinary infection. Your CT scan done today, however, did demonstrate that you have a pelvic mass, this is strongly felt to be cancerous in origin. An order has been given to radiology for an outpatient PET scan, our radiology department should call you tomorrow with the time for this. I recommend that you follow up with your primary provider Lucia Ramirez for the results of this scan. I again strongly recommend that you follow up with Lucia Ramirez tomorrow or the next day if able for further evaluation of this mass in question. Please return to the ED if her symptoms change or worsen. - My Orders Last 24 Hours: My Active Orders 05/26/18 12:05 Sodium Chloride 0.9% [Normal Saline] 1,000 ml IV ASDIRECTED 05/26/18 13:33 Sodium Chloride 0.9% [Saline Flush] 10 ml FLUSH ONETIME PRN 05/26/18 13:39 CULTURE URINE [RM] Stat - Assessment/Plan Last 24 Hours: My Active Orders 05/26/18 12:05 Sodium Chloride 0.9% [Normal Saline] 1,000 ml IV ASDIRECTED 05/26/18 13:33 Sodium Chloride 0.9% [Saline Flush] 10 ml FLUSH ONETIME PRN 05/26/18 13:39 CULTURE URINE [RM] Stat
[2018-05-26] MEDS ORDERED: Iopamidol 612 MG/ML 100 ML Bottle IVPUSH ONE (13:33)
[2018-05-26] MEDS ORDERED: Diatrizoate Meglumine/Diatrizoate Sodium 37% 120 ML Bottle PO ONE (13:33)
[2018-05-26] MEDS ORDERED: Sodium Chloride 0.9% 10 ML Syringe FLUSH PRN (13:33)
--- NOTE | 2018-05-26 14:21 | CT ---
CT abdomen and pelvis Technique: Multiple axial sections were obtained from above the dome of the diaphragm inferiorly through the pubic symphysis. Intravenous and oral contrast was utilized. Delayed images were also obtained from above the dome of the diaphragm inferiorly through the pubic symphysis. Comparison: No prior abdominal imaging. Findings: Soft tissue abnormality is seen within the right side of the pelvis. This appears to extend around the terminal ileum and extending into the ileocecal valve. This abnormality has a craniocaudal dimension of 7.8 cm with transverse dimension of 3.5 cm and AP dimension of approximately 9.3 cm. Small amount of free fluid noted within the pelvis. Right kidney shows rather severe hydronephrosis with dilated ureter down to this pelvic mass. This finding causes obstruction of the right ureter. This finding is most likely neoplastic in origin. Less likely etiology would be very prominent inflammatory change which is felt to be much less likely in etiology. Left kidney shows no hydronephrosis. Left ureter on delayed images shows contrast within it down to the bladder. Visualized lung bases shows a small nodule within the right base measuring around 3.5 mm. Lung bases are otherwise clear. Small hiatal hernia is noted. Spleen appears within normal limits. Liver contains no focal abnormality. Appendix is seen and is normal in size. Pancreas appears within normal limits. Adrenal glands show no nodule. Gallbladder contains no calcified gallstones. Aorta shows no aneurysm with atherosclerotic change. No retroperitoneal adenopathy is seen. No mesenteric abnormalities are seen. No additional pelvic abnormality is appreciated. Bone window settings were reviewed which shows scattered degenerative change within the spine. No acute osseous abnormality is appreciated. Impression: 1. Soft tissue mass within the right side of the pelvis extending around the terminal ileum into the ileocecal valve. Findings most likely are neoplastic and uncertain if this represents tumor from the ileocecal valve and terminal ileum or represents ovarian or other pelvic tumor extending into the ileocecal valve and around the terminal ileum. 2. Fairly severe hydronephrosis of the right kidney and right ureter. This finding appears to be caused by the right sided pelvic mass. 3. Small amount of increased fluid within the pelvis. 4. Small nonspecific 3.5 mm nodule within the right lung base. 5. No other acute abnormality is seen. Diagnostic code #9
== END 2018-05-26 15:47 | disposition home or self-care (01) ==
LOC: JD.ED 11:28
DX: R19.00 Intra-abdominal and pelvic swelling, mass and lump, unspecified site (principal); I10 Essential (primary) hypertension; F17.210 Nicotine dependence, cigarettes, uncomplicated; J44.9 Chronic obstructive pulmonary disease, unspecified; K21.9 Gastro-esophageal reflux disease without esophagitis; F41.9 Anxiety disorder, unspecified; F32.9 Major depressive disorder, single episode, unspecified; D64.9 Anemia, unspecified; Z79.899 Other long term (current) drug therapy
CPT/HCPCS: 36415; 74177; 80053; 81001; 83690; 85007; 85027; 86140; 87086; 96361; 96374; 99284; J2405; J7040; Q9963; Q9967

== ENCOUNTER 2018-06-02 12:11 | Emergency (ER) | payer MEDICARE, BC ==
--- NOTE | 2018-06-02 12:25 | EDM.PDOC ---
ED HPI GENERAL MEDICAL PROBLEM - General Chief Complaint: Abdominal Pain Stated Complaint: PAIN ON RIGHT LOWER STOMACH Time Seen by Provider: 06/02/18 12:25 Source of Information: Reports: Patient History Limitations: Reports: No Limitations - History of Present Illness INITIAL COMMENTS - FREE TEXT/NARRATIVE: 72-year-old female presents to the ED primarily with right lower quadrant abdominal pain. Patient has been having increasing right lower quadrant abdominal pain for the last 3-4 months. She reports a 50 pound weight loss over the last 3 months. And done on May 26 when she was seen through the ED identified a soft tissue abnormality within the right side of the pelvis. This appears to extend around the terminal ileum and extending into the ileocecal valve. This abnormality has a craniocaudal dimension of 7.8 cm with a transverse dimension of 3.5 cm in AP dimension of approximately 9.3 cm small amount of free fluid noted within the pelvis. The right kidney shows rather severe hydronephrosis with dilated ureter down to this pelvic mass. This finding causes obstruction of the right ureter this finding is most likely neoplastic in origin. Less likely etiology would be very prominent inflammatory change which is felt to be much less likely. Left kidney showed no hydronephrosis left ureter on delayed images show contrast down to the bladder. She lies lung bases show a small nodule within the right lung base measuring around 3.5 mm. Small hiatal hernia is appreciated spleen appear to be within normal limits liver contained no focal abnormality. Appendix is seen and is normal in size. Pancreas appeared to be within normal limits. Adrenal glands show no nodule gallbladder contains no calcified gallstones. Aorta shows no aneurysm with atherosclerotic changes. No retroperitoneal adenopathy is seen no mesenteric abnormalities are seen bone windows reveals scattered degenerative changes within the spine. No osseous abnormalities were appreciated. She has had no previous abdominal surgery. She is a cigarette smoker. She has a feeling of incomplete bladder emptying. She comes to the ED today primarily for pain management. He states her bowels are very sluggish in movement. She is eating but forcing herself to eat as she has absolutely no appetite. This is concerning for possible metastatic disease to the liver. Also she could be suffering uremia causing her to lose her appetite. Plan routine labs to be done including a urinalysis and postvoid bladder scan. One view of the abdomen to rule out bowel obstruction. I have her renal function back I will discuss this with urology as to whether or not an attempt should be done to place a ureteric stent versus nephrostomy tube to salvage the right kidney. Her appointment in [place] to see the oncology ladle builder is on Sunday next week which means she would not be getting any surgery until the next week. Plan IV D5 normal saline at open. Given Dilaudid 0.5 mg IV with Zofran 4 mg IV at this time. Onset: Unknown/Unsure (Has been having gradually worsening right lower quadrant pain for the last 3-4 months. It is constant but lately has been sharp and stabbing as well) Duration: Chronic, Getting Worse Location: Reports: Abdomen (Right lower quadrant of the abdomen. 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 Denies: Activity , Exercise, Lifting, Sick Contact, Trauma Associated Symptoms: Reports: Loss of Appetite, Malaise, Nausea/Vomiting, Weakness (Generalized weakness). Denies: Confusion, Chest Pain, Cough, cough w sputum, Diaphoresis, Fever/Chills, Headaches (50 pound weight loss over the last 3 months), Rash, Seizure (Occasional nausea), Shortness of Breath, Syncope Treatments POLISHER BRASS: Reports: Other (see below) (Currently on antibiotics for 3 days for urinary tract infection.) Right Upper Abdomen Pain Score (Numeric/FACES): 9 - Related Data Allergies Allergy/AdvReac Type Severity Reaction Status Date / Time No Known Allergies Allergy Verified 06/02/18 12:23 Home Meds: Home Meds Albuterol Sulfate 1 puff INH ASDIRECTED PRN 11/18/13 [History] Venlafaxine [Effexor] 150 mg PO DAILY 11/18/13 [History] Albuterol/Ipratropium [DuoNeb 3.0-0.5 MG/3 ML] 3 ml INH TID 10/18/15 [History] Budesonide [Pulmicort] 1 dose INH BID 10/18/15 [History] Cyanocobalamin (Vitamin B-12) [Vitamin B-12] 1,000 mcg INJECT Q14D 10/18/15 [ History] Denosumab [Prolia] 60 mg SUBCUT ASDIRECTED 10/18/15 [History] Olopatadine [Patanol 0.1% Ophth Soln] 1 drop EYEBOTH BID PRN 10/18/15 [History] guaiFENesin [Mucinex] 600 mg PO DAILY PRN 10/18/15 [History] Dexamethasone/Tobramycin [Tobradex Ophth Susp] 1 drop EYEBOTH TID 11/15/17 [ History] Ferrous Sulfate [Iron] 1 tab PO DAILY 11/15/17 [History] Fluticasone Propionate [Flonase] 1 - 2 spray NASBOTH DAILY 11/15/17 [History] Fluticasone/Vilanterol [Breo Ellipta 200-25 Mcg INH] 1 puff INH DAILY 11/15/17 [ History] Latanoprost 1 drop EYEBOTH DAILY 11/15/17 [History] Loteprednol Etabonate [Alrex] 1 drop EYEBOTH TID 11/15/17 [History] Melatonin 5 mg PO BEDTIME 11/15/17 [History] Ondansetron [Ondansetron ODT] 4 mg PO Q4H PRN 11/15/17 [History] Rosuvastatin Calcium 5 mg PO DAILY 11/15/17 [History] busPIRone [Buspar] 10 mg PO TID 11/15/17 [History] hydrOXYzine pamoate [Vistaril] 25 mg PO TID PRN 11/15/17 [History] Past Medical History HEENT History: Reports: Allergic Rhinitis, Glaucoma, Sinusitis Cardiovascular History: Reports: Hypertension Respiratory History: Reports: Asthma, COPD Gastrointestinal History: Reports: Colon Polyp, Gastritis, GERD, Other (See Below) Other Gastrointestinal History: esophagitis, duodenitis, diverticulosis Genitourinary History: Reports: None [employer] MANAGER History: Reports: Other (See Below) Other [employer]ENT[employer] AG[employer]Y MANAGER History: diffuse cystic mastopathy, breast surgery Musculoskeletal History: Reports: Osteoporosis Neurological History: Reports: None Psychiatric History: Reports: Anxiety, Depression Endocrine/Metabolic History: Reports: Osteoporosis Hematologic History: Reports: Anemia, Other (See Below) Other Hematologic History: pernicious anemia Immunologic History: Reports: None Oncologic (Cancer) History: Reports: None Dermatologic History: Reports: None - Past Surgical History Head Surgeries/Procedures: Reports: None HEENT Surgical History: Reports: Adenoidectomy, Cataract Surgery, Laser Surgery , Oral Surgery, Tonsillectomy Respiratory Surgical History: Reports: None GI Surgical History: Reports: Colonoscopy, EGD, Polypectomy Female Surgical History: Reports: Breast Biopsy Endocrine Surgical History: Reports: None Neurological Surgical History: Reports: None Musculoskeletal Surgical History: Reports: None Oncologic Surgical History: Reports: Biopsy of Breast Dermatological Surgical History: Reports: None Social & Family History - Tobacco Use Smoking Status *Q: Former Smoker - Caffeine Use Caffeine Use: Reports: Coffee - Living Situation & Occupation Living situation: Reports: ED ROS GENERAL - Review of Systems Review Of Systems: See Below Constitutional: Reports: Malaise, Weakness, Fatigue, Decreased Appetite (50 pounds in the last 3 months forces herself to eat as she has no appetite), Weight Loss. Denies: Fever, Chills HEENT: Reports: Glasses Respiratory: Reports: Shortness of Breath, Wheezing, Cough (Occasional cough with very little sputum production. Has COPD from cigarette smoking does use inhalers.). 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 Denies: Diarrhea, Difficulty Swallowing, Flatus, Hematemesis, Hematochezia, Melena, Stool Incontinence : Reports: Flank Pain (Right flank pressure is continuous.), Frequency. Denies: No Symptoms, Discharge, Dysuria, Incontinence, Irregular Menses, Pain, Urgency, Urinary Retention Musculoskeletal: Reports: Back Pain (Diffuse flank pain right sided low back pain on the right side) Skin: Reports: Other (Has a grayish color to her from cigarette smoking) Neurological: Reports: No Symptoms Psychiatric: Reports: No Symptoms Hematologic/Lymphatic: Reports: No Symptoms Immunologic: Reports: No Symptoms ED EXAM, GI/ABD - Physical Exam Exam: See Below Exam Limited By: No Limitations General Appearance: Alert, WD/WN, Moderate Distress (Moderately anxious.) Eyes: Bilateral: Normal Appearance Throat/Mouth: Normal Inspection, Normal Lips, Normal Oropharynx Head: Atraumatic, Normocephalic Neck: Normal Inspection, Supple, Non-Tender, Full Range of Motion, Other (Nose the clavicular region or infraclavicular adenopathy noted.). No: Lymphadenopathy (L), Lymphadenopathy (R) Respiratory/Chest: No Respiratory Distress, Decreased Breath Sounds, Wheezing. No: Lungs Clear, Rales (Bridger expiratory wheezes.), Rhonchi Cardiovascular: Normal Peripheral Pulses, Regular Rate, Rhythm, No Edema, No Murmur, No Rub GI/Abdominal Exam: Normal Bowel Sounds, Soft, Other (No surgical scars). No: No Mass, Distended (No hyper tympany to percussion.) Back Exam: CVA Tenderness (R) (Mild). No: CVA Tenderness (L), Decreased Range of Motion, Muscle Spasm Extremities: Normal Inspection, Normal Range of Motion, Non-Tender, No Pedal Edema Neurological: Alert, Oriented, CN II-XII Intact, Normal Cognition Psychiatric: Anxious Skin Exam: Warm, Dry, Intact, No Rash, Other (Grayish in color.). No: Ecchymosis Course - Vital Signs Last Recorded V/S: Last Vital Signs Temp 36.6 C 06/02/18 12:24 Pulse 92 06/02/18 12:24 Resp 18 06/02/18 12:24 BP 181/86 H 06/02/18 12:24 Pulse Ox 99 06/02/18 12:24 - Orders/Labs/Meds Orders: Active Orders 24 hr Category Date Time Status Bladder Scan [RC] ASDIRECTED Care 06/02/18 12:41 Active Labs: Laboratory Tests 06/02/18 06/02/18 06/02/18 Range/Units 13:15 13:15 13:15 WBC 5.71 (3.98-10.04) K/mm3 RBC 3.87 L (3.98-5.22) M/mm3 Hgb 12.6 (11.2-15.7) gm/L Hct 39.6 (34.1-44.9) % MCV 102.3 H (79.4-94.8) fl MCH 32.6 H (25.6-32.2) pg MCHC 31.8 L (32.2-35.5) g/dl RDW Std Deviation 47.9 H (36.4-46.3) fL Plt Count 264 (182-369) K/mm3 MPV 10.1 (9.4-12.3) fl Neutrophils % (Manual) 94 H (40-60) % Band Neutrophils % 0 (0-10) % Lymphocytes % (Manual) 5 L (20-40) % Atypical Lymphs % 0 % Monocytes % (Manual) 1 L (2-10) % Eosinophils % (Manual) 0 L (0.7-5.8) % Basophils % (Manual) 0 L (0.1-1.2) Toxic Granulation 2+ moderate Platelet Estimate Adequate Plt Morphology Comment Normal Anisocytosis 1+ slight RBC Morph Comment Not Reportable ESR 17 (0-20) mm/hr Sodium 141 (136-145) mEq/L Potassium 3.6 (3.5-5.1) mEq/L Chloride 106 (98-107) mEq/L Carbon Dioxide 26 (21-32) mEq/L Anion Gap 12.6 (5-15) BUN 16 (7-18) mg/dL Creatinine 1.5 H (0.55-1.02) mg/dL Est Cr Clr Drug Dosing 33.94 mL/min Estimated GFR (MDRD) 34 (>60) mL/min BUN/Creatinine Ratio 10.7 L (14-18) Glucose 129 H (80-115) mg/dL Calcium 9.1 (8.5-10.1) mg/dL Magnesium 2.3 (1.8-2.4) mg/dl Total Bilirubin 0.3 (0.2-1.0) mg/dL AST 15 (15-37) U/L ALT 19 (14-59) U/L Alkaline Phosphatase 59 (46-116) U/L C-Reactive Protein < 0.2 (<1.0) mg/dL Total Protein 6.8 (6.4-8.2) g/dl Albumin 3.2 L (3.4-5.0) g/dl Globulin 3.6 gm/dL Albumin/Globulin Ratio 0.9 L (1-2) Urine Color (Yellow) Urine Appearance (Clear) Urine pH (5.0-8.0) Ur Specific [place] (1.005-1.030) Urine Protein (Negative) Urine Glucose (UA) (Negative) Urine Ketones (Negative) Urine Occult Blood (Negative) Urine Nitrite (Negative) Urine Bilirubin (Negative) Urine Urobilinogen (0.2-1.0) Ur Leukocyte Esterase (Negative) Urine RBC (0-5) /hpf Urine WBC (0-5) /hpf Ur Epithelial Cells (0-5) /hpf Urine Bacteria (FEW) /hpf Urine Mucus (FEW) /hpf 06/02/18 Range/Units 14:20 WBC (3.98-10.04) K/mm3 RBC (3.98-5.22) M/mm3 Hgb (11.2-15.7) gm/L Hct (34.1-44.9) % MCV (79.4-94.8) fl MCH (25.6-32.2) pg MCHC (32.2-35.5) g/dl RDW Std Deviation (36.4-46.3) fL Plt Count (182-369) K/mm3 MPV (9.4-12.3) fl Neutrophils % (Manual) (40-60) % Band Neutrophils % (0-10) % Lymphocytes % (Manual) (20-40) % Atypical Lymphs % % Monocytes % (Manual) (2-10) % Eosinophils % (Manual) (0.7-5.8) % Basophils % (Manual) (0.1-1.2) Toxic Granulation Platelet Estimate Plt Morphology Comment Anisocytosis RBC Morph Comment ESR (0-20) mm/hr Sodium (136-145) mEq/L Potassium (3.5-5.1) mEq/L Chloride (98-107) mEq/L Carbon Dioxide (21-32) mEq/L Anion Gap (5-15) BUN (7-18) mg/dL Creatinine (0.55-1.02) mg/dL Est Cr Clr Drug Dosing mL/min Estimated GFR (MDRD) (>60) mL/min BUN/Creatinine Ratio (14-18) Glucose (80-115) mg/dL Calcium (8.5-10.1) mg/dL Magnesium (1.8-2.4) mg/dl Total Bilirubin (0.2-1.0) mg/dL AST (15-37) U/L ALT (14-59) U/L Alkaline Phosphatase (46-116) U/L C-Reactive Protein (<1.0) mg/dL Total Protein (6.4-8.2) g/dl Albumin (3.4-5.0) g/dl Globulin gm/dL Albumin/Globulin Ratio (1-2) Urine Color Yellow (Yellow) Urine Appearance Clear (Clear) Urine pH 7.0 (5.0-8.0) Ur Specific [place] 1.015 (1.005-1.030) Urine Protein Trace H (Negative) Urine Glucose (UA) 2+ H (Negative) Urine Ketones Negative (Negative) Urine Occult Blood Negative (Negative) Urine Nitrite Negative (Negative) Urine Bilirubin Negative (Negative) Urine Urobilinogen 0.2 (0.2-1.0) Ur Leukocyte Esterase Negative (Negative) Urine RBC Not seen (0-5) /hpf Urine WBC 0-5 (0-5) /hpf Ur Epithelial Cells 5-10 H (0-5) /hpf Urine Bacteria Not seen (FEW) /hpf Urine Mucus Not seen (FEW) /hpf Meds: Medications Discontinued Medications Generic Name Dose Route Start Last Admin Trade Name Freq PRN Reason Stop Dose Admin Hydromorphone HCl 0.5 mg 06/02/18 12:39 06/02/18 13:08 Dilaudid IVPUSH 06/02/18 12:40 0.5 mg ONETIME ONE Administration Dextrose/Sodium Chloride 1,000 mls @ 999 mls/hr 06/02/18 12:45 06/02/18 13:06 Dextrose 5%-Normal Saline IV 999 mls/hr ASDIRECTED MAIA Administration Magnesium Citrate 180 ml 06/02/18 15:47 06/02/18 15:53 Citrate Of Magnesia PO 06/02/18 15:48 180 ml ONETIME ONE Administration Ondansetron HCl 4 mg 06/02/18 12:39 06/02/18 13:07 Zofran IVPUSH 06/02/18 12:40 4 mg ONETIME ONE Administration - Radiology Interpretation Free Text/Narrative:: 72-year-old female presents to the ED primarily for pain control of a mass in her right lower quadrant which was identified on CT exam of the abdomen and pelvis May 26. 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 It involves or encompasses the right ureter and appears to be obstructing the right ureter completely as there is significant hydronephrosis of the right kidney. The mass also encompasses the ileo-cecal valve and cecal area of the small bowel. She states the pain is constant but is occasionally quite sharp and stabbing as well suggesting a colicky component to the pain. This does cause her to be nauseated although she's not vomited. Her appetite is very poor. Her bowels are not moving very well. And she has a feeling of incomplete bladder emptying. She is scheduled to see the oncology ladle builder in [facility] next week Sunday. Plan IV D5 normal saline and opened. Given Dilaudid 0.5 mg IV with Zofran 4 mg IV at this time. She will have routine labs and a urinalysis and then a bladder scan to see if she is completely emptying. One view of the abdomen to look at the bowel gas and stool pattern - Re-Assessments/Exams Free Text/Narrative Re-Assessment/Exam: 06/02/18 13:21 KUB reveals increased stool in the cecum area and then throughout the descending colon. There is no sign of bowel obstruction. 06/02/18 14:51 Labs show a white count that is normal at 5.71. The differential shows 94% neutrophils however hemoglobin is 12.6 with hematocrit of 39.6. MCV is elevated at 102.3. Platelets counts 264,000. The slides she was just 2+ moderate granulation. Sodium 141 with potassium of 3.6. Chloride 16 with a bicarbonate of 26. And a gap is 12.6. Creatinine is 1.5 with a BUN pending. GFR is down to 34 stage III chronic kidney disease glucose 129. Calcium 9.1. Magnesium 2.3. Liver function is normal C-reactive protein is less than 0.2 total protein is 6.8 albumin is 3.2 globulin is 3.6.. Urinalysis shows 2+ glucosuria. 0.2 by urobilinogen. 06/02/18 15:10 Urinalysis shows 2+ glucose negative leukocyte esterase. 5-10 epithelial cells 06/02/18 15:30: Spoke with Dr. Meyers urologist at [facility] in [place] about the tumor wrapping around the right ureter causing significant hydronephrosis and hydroureter above the tumor suggesting that the ureter is likely completely occluded. Function he felt there was no necessity for emergent treatment or evaluation. Usually the ureter is able to be dissected away from the tumor itself at the time of surgery which is scheduled for next Sunday. He said if there is no obvious infection above the ureter like in the kidney causing sepsis that knowing immediate intervention is necessary. The patient will receive magnesium citrate 6 ounces today to provide bowel cleanse and then start MiraLAX powder 17 g daily and then repeat magnesium citrate 6 ounces on the day before surgery to provide bowel cleanse in preparation for the operation. She doesn't want anything for pain at this point time she takes Tylenol and seems to be getting by. 0 Departure - Departure Time of Disposition: 15:45 Disposition: Home, Self-Care 01 Condition: Fair Clinical Impression: Pelvic neoplasm Abdominal pain Qualifiers: Abdominal location: right lower quadrant Qualified Code(s): R10.31 - Right lower quadrant pain - Discharge Information *PRESCRIPTION DRUG MONITORING PROGRAM REVIEWED*: Not Applicable *COPY OF PRESCRIPTION DRUG MONITORING REPORT IN PATIENT FILIBERTO: Not Applicable Instructions: Abdominal Pain, Adult, [id number] Referrals: Lucia Ramirez PA-C [Primary Care Provider] - Forms: ED Department Discharge Additional Instructions: Evaluation the emergency room today in regards to right lower quadrant abdominal pain worsening over the last several days. CT recently diagnosed a tumor in the right lower quadrant which appears to be coming from the right ovary and is wrapping around the right ureter including the ureter on the right side. It is also involving the ileum or the last part of the small bowel. The lab work turned out to be completely normal. Straight reveals increased stool in the cecum or the bowel in the right lower quadrant and appears to be the primary problem at this time. For treatment is suggested to be bowel cleanse with magnesium citrate or Citroma. Takes 6 ounces mixed with 6 ounces of juice of choice by mouth today and plan on repeating this on this next week before your surgery scheduled on Sunday. Meantime suggest MiraLAX powder 17 g or 1 scoop every day to prevent constipation from occurring. Continue Tylenol or Motrin for pain if needed. Of course return to the hospital if any further problems occur. - My Orders Last 24 Hours: My Active Orders 06/02/18 12:41 Bladder Scan [RC] ASDIRECTED - Assessment/Plan Last 24 Hours: My Active Orders 06/02/18 12:41 Bladder Scan [RC] ASDIRECTED
[2018-06-02 12:27] VITALS: BP 181/86
[2018-06-02] MEDS ORDERED: Ondansetron 4 MG/2 ML SDV IVPUSH ONE (12:39)
[2018-06-02] MEDS ORDERED: HYDROmorphone 1 MG/ML Syringe IVPUSH ONE (12:39)
[2018-06-02] MEDS ORDERED: Dextrose 5%-0.9% NaCl 1,000 ML IV SCH (12:45)
--- NOTE | 2018-06-02 14:29 | CR ---
Abdomen: Supine view of the abdomen was obtained. Comparison: No prior abdominal x-ray, prior CT abdomen and pelvis exam of 05/26/18. Findings: Bowel gas pattern appears normal. Bony structures show slight degenerative spurring within the spine. Minimal scoliosis is also noted within the spine. Mild joint space narrowing is seen superiorly within the left hip. No discrete soft tissue abnormality is seen. Soft tissue findings seen on prior CT study below the resolution of plain film study to visualize. Impression: 1. Nothing acute is appreciated on supine abdominal x-ray. Diagnostic code #2
[2018-06-02] MEDS ORDERED: Magnesium Citrate Solution 296 ML Bottle PO ONE (15:47)
== END 2018-06-02 16:15 | disposition home or self-care (01) ==
LOC: JD.ED 12:11
DX: C76.3 Malignant neoplasm of pelvis (principal); R10.31 Right lower quadrant pain; I10 Essential (primary) hypertension; J44.9 Chronic obstructive pulmonary disease, unspecified; F41.9 Anxiety disorder, unspecified; Z87.891 Personal history of nicotine dependence; Z79.899 Other long term (current) drug therapy
CPT/HCPCS: 36415; 51798; 74018; 80053; 81001; 83735; 85007; 85027; 85652; 86140; 96361; 96374; 96375; 99284; A9270; J1170; J2405; J7042

== ENCOUNTER 2018-08-24 16:07 | Emergency (ER) | payer MEDICARE, BC ==
[2018-08-24 16:20] VITALS: BP 167/91
--- NOTE | 2018-08-24 17:37 | EDM.PDOC ---
ED HPI GENERAL MEDICAL PROBLEM - General Chief Complaint: Genitourinary Problem Stated Complaint: URINARY PROBLEMS Time Seen by Provider: 08/24/18 17:10 Source of Information: Reports: Patient History Limitations: Reports: No Limitations - History of Present Illness INITIAL COMMENTS - FREE TEXT/NARRATIVE: 72-year-old female presents for evaluation and treatment of urinary tract infection symptoms. Reports she's had symptoms for the last 4 days. Reports dysuria, lower abdominal/pelvic discomfort and back pain. She reports a slight fever but has not taken her temperature, has also noticed chills. She has been feeling nauseous and vomited a few times. She also reports low back pain. Patient had a complete hysterectomy done in May with Dr. Espino. Duration: Day(s): (4) Bladder Pain Score (Numeric/FACES): 6 - Related Data Allergies Allergy/AdvReac Type Severity Reaction Status Date / Time No Known Allergies Allergy Verified 08/24/18 16:17 Home Meds: Home Meds Albuterol Sulfate 1 puff INH ASDIRECTED PRN 11/18/13 [History] Venlafaxine [Effexor] 150 mg PO DAILY 11/18/13 [History] Albuterol/Ipratropium [DuoNeb 3.0-0.5 MG/3 ML] 3 ml INH TID 10/18/15 [History] Budesonide [Pulmicort] 1 dose INH BID 10/18/15 [History] Cyanocobalamin (Vitamin B-12) [Vitamin B-12] 1,000 mcg INJECT Q14D 10/18/15 [ History] Denosumab [Prolia] 60 mg SUBCUT ASDIRECTED 10/18/15 [History] Olopatadine [Patanol 0.1% Ophth Soln] 1 drop EYEBOTH BID PRN 10/18/15 [History] guaiFENesin [Mucinex] 600 mg PO DAILY PRN 10/18/15 [History] Dexamethasone/Tobramycin [Tobradex Ophth Susp] 1 drop EYEBOTH TID 11/15/17 [ History] Ferrous Sulfate [Iron] 1 tab PO DAILY 11/15/17 [History] Fluticasone Propionate [Flonase] 1 - 2 spray NASBOTH DAILY 11/15/17 [History] Fluticasone/Vilanterol [Breo Ellipta 200-25 Mcg INH] 1 puff INH DAILY 11/15/17 [ History] Latanoprost 1 drop EYEBOTH DAILY 11/15/17 [History] Loteprednol Etabonate [Alrex] 1 drop EYEBOTH TID 11/15/17 [History] Melatonin 5 mg PO BEDTIME 11/15/17 [History] Ondansetron [Ondansetron ODT] 4 mg PO Q4H PRN 11/15/17 [History] Rosuvastatin Calcium 5 mg PO DAILY 11/15/17 [History] busPIRone [Buspar] 10 mg PO TID 11/15/17 [History] hydrOXYzine pamoate [Vistaril] 25 mg PO TID PRN 11/15/17 [History] Past Medical History HEENT History: Reports: Allergic Rhinitis, Glaucoma, Sinusitis Cardiovascular History: Reports: Hypertension Respiratory History: Reports: Asthma, COPD Gastrointestinal History: Reports: Colon Polyp, Gastritis, GERD, Other (See Below) Other Gastrointestinal History: esophagitis, duodenitis, diverticulosis Genitourinary History: Reports: None BASTER HAND History: Reports: Other (See Below) Other BASTER HAND History: diffuse cystic mastopathy, breast surgery Musculoskeletal History: Reports: Osteoporosis Neurological History: Reports: None Psychiatric History: Reports: Anxiety, Depression Endocrine/Metabolic History: Reports: Osteoporosis Hematologic History: Reports: Anemia, Other (See Below) Other Hematologic History: pernicious anemia Immunologic History: Reports: None Oncologic (Cancer) History: Reports: None Dermatologic History: Reports: None - Past Surgical History Head Surgeries/Procedures: Reports: None HEENT Surgical History: Reports: Adenoidectomy, Cataract Surgery, Laser Surgery , Oral Surgery, Tonsillectomy Respiratory Surgical History: Reports: None GI Surgical History: Reports: Colonoscopy, EGD, Polypectomy Female Surgical History: Reports: Breast Biopsy Endocrine Surgical History: Reports: None Neurological Surgical History: Reports: None Musculoskeletal Surgical History: Reports: None Oncologic Surgical History: Reports: Biopsy of Breast Dermatological Surgical History: Reports: None Social & Family History - Tobacco Use Smoking Status *Q: Former Smoker Years of Tobacco use: 35 Packs/Tins Daily: 0.5 Used Tobacco, but Quit: Yes Month/Year Tobacco Last Used: May 2018 - Caffeine Use Caffeine Use: Reports: Coffee - Living Situation & Occupation Living situation: Reports: ED ROS GENERAL - Review of Systems Review Of Systems: See Below Constitutional: Reports: Fever, Chills GI/Abdominal: Reports: Abdominal Pain, Nausea, Vomiting : Reports: Dysuria. Denies: Hematuria Musculoskeletal: Reports: Back Pain ED EXAM, RENAL/ - Physical Exam Exam: See Below Exam Limited By: No Limitations General Appearance: Alert, WD/WN, No Apparent Distress Respiratory/Chest: No Respiratory Distress, Lungs Clear, Normal Breath Sounds Cardiovascular: Normal Peripheral Pulses, Regular Rate, Rhythm, No Murmur GI/Abdominal: Normal Bowel Sounds, Soft, Non-Tender Back Exam: Normal Inspection. No: CVA Tenderness (L), CVA Tenderness (R) Neurological: Alert, Oriented, Normal Cognition Psychiatric: Normal Affect, Normal Mood Skin Exam: Warm, Dry, Normal Color Course - Vital Signs Last Recorded V/S: Last Vital Signs Temp 99.8 F 08/24/18 16:17 Pulse 99 08/24/18 16:17 Resp 18 08/24/18 16:17 BP 167/91 H 08/24/18 16:17 Pulse Ox 96 08/24/18 16:17 - Orders/Labs/Meds Labs: Laboratory Tests 08/24/18 Range/Units 17:30 Urine Color Yellow (Yellow) Urine Appearance Cloudy H (Clear) Urine pH 6.0 (5.0-8.0) Ur Specific [place] 1.025 (1.005-1.030) Urine Protein 1+ H (Negative) Urine Glucose (UA) Negative (Negative) Urine Ketones Negative (Negative) Urine Occult Blood 1+ H (Negative) Urine Nitrite Negative (Negative) Urine Bilirubin Negative (Negative) Urine Urobilinogen 0.2 (0.2-1.0) Ur Leukocyte Esterase 1+ H (Negative) Urine RBC 10-20 H (0-5) /hpf Urine WBC >100 H (0-5) /hpf Ur Squamous Epith Cells 5-10 H (0-5) /hpf Urine Bacteria Many H (FEW) /hpf Urine Mucus Rare (FEW) /hpf - Re-Assessments/Exams Free Text/Narrative Re-Assessment/Exam: 08/24/18 18:21 Urine returned positive for UTI. Urine culture sent. Will put on Keflex twice a day for 7 days. Discharge instructions as documented. Departure - Departure Time of Disposition: 18:22 Disposition: Home, Self-Care 01 Condition: Good Clinical Impression: UTI, Urinary tract infectious disease - Discharge Information *PRESCRIPTION DRUG MONITORING PROGRAM REVIEWED*: No *COPY OF PRESCRIPTION DRUG MONITORING REPORT IN PATIENT FILIBERTO: No Instructions: Urinary Tract Infection, Adult, [id number] Referrals: Peter Banks MD [Primary Care Provider] - Forms: ED Department Discharge Additional Instructions: Keflex 500 mg twice a day 7 days dispensed from [facility] Take the Keflex as prescribed. 1 tab twice a day for 7 days. He will have some extra tabs remaining from this [facility] prescription. Make sure are drinking plenty of fluids. Follow-up with her primary care provider if your symptoms do not improve in one week. Please return to the ER if your symptoms change or worsen.
== END 2018-08-24 18:45 | disposition home or self-care (01) ==
LOC: JD.ED 16:07
DX: N39.0 Urinary tract infection, site not specified (principal); I10 Essential (primary) hypertension; F41.9 Anxiety disorder, unspecified; F32.9 Major depressive disorder, single episode, unspecified; D64.9 Anemia, unspecified; J44.9 Chronic obstructive pulmonary disease, unspecified; Z98.49 Cataract extraction status, unspecified eye; Z98.890 Other specified postprocedural states; Z79.899 Other long term (current) drug therapy; Z87.891 Personal history of nicotine dependence
CPT/HCPCS: 81001; 87086; 87088; 87186; 99283

== ENCOUNTER 2018-09-03 14:15 | Emergency (ER) | payer MEDICARE, BC ==
[2018-09-03 14:24] VITALS: BP 116/75
--- NOTE | 2018-09-03 14:35 | EDM.PDOC ---
ED HPI GENERAL MEDICAL PROBLEM - General Chief Complaint: Genitourinary Problem Stated Complaint: BLADDER INFECTION Time Seen by Provider: 09/03/18 14:34 - History of Present Illness INITIAL COMMENTS - FREE TEXT/NARRATIVE: 72-year-old female presents emergency room with lower abdominal pain. This is been an ongoing problem she thinks she has another bladder infection recently she's been on cephalexin and Macrobid for infection that she says just isn't getting any better she has a lot of discomfort in her bladder. The patient has had some problems with this ever since she had a surgery for what she describes as an ovarian cancer back on June 07. She has follow-up with Dr. Montes tomorrow. Her surgical procedure was done in [place]. She denies fevers chills nausea or vomiting just this ongoing bladder pain. Pelvic Pain Score (Numeric/FACES): 7 - Related Data Allergies Allergy/AdvReac Type Severity Reaction Status Date / Time No Known Allergies Allergy Verified 09/03/18 14:24 Home Meds: Home Meds Albuterol Sulfate 1 puff INH ASDIRECTED PRN 11/18/13 [History] Venlafaxine [Effexor] 150 mg PO DAILY 11/18/13 [History] Albuterol/Ipratropium [DuoNeb 3.0-0.5 MG/3 ML] 3 ml INH TID 10/18/15 [History] Budesonide [Pulmicort] 1 dose INH BID 10/18/15 [History] Cyanocobalamin (Vitamin B-12) [Vitamin B-12] 1,000 mcg INJECT Q14D 10/18/15 [ History] Denosumab [Prolia] 60 mg SUBCUT ASDIRECTED 10/18/15 [History] Olopatadine [Patanol 0.1% Ophth Soln] 1 drop EYEBOTH BID PRN 10/18/15 [History] guaiFENesin [Mucinex] 600 mg PO DAILY PRN 10/18/15 [History] Dexamethasone/Tobramycin [Tobradex Ophth Susp] 1 drop EYEBOTH TID 11/15/17 [ History] Ferrous Sulfate [Iron] 1 tab PO DAILY 11/15/17 [History] Fluticasone Propionate [Flonase] 1 - 2 spray NASBOTH DAILY 11/15/17 [History] Fluticasone/Vilanterol [Breo Ellipta 200-25 Mcg INH] 1 puff INH DAILY 11/15/17 [ History] Latanoprost 1 drop EYEBOTH DAILY 11/15/17 [History] Loteprednol Etabonate [Alrex] 1 drop EYEBOTH TID 11/15/17 [History] Melatonin 5 mg PO BEDTIME 11/15/17 [History] Ondansetron [Ondansetron ODT] 4 mg PO Q4H PRN 11/15/17 [History] Rosuvastatin Calcium 5 mg PO DAILY 11/15/17 [History] busPIRone [Buspar] 10 mg PO TID 11/15/17 [History] hydrOXYzine pamoate [Vistaril] 25 mg PO TID PRN 11/15/17 [History] Nitrofurantoin Monohyd/M-Cryst [Macrobid 100 mg Capsule] 100 mg PO Q12H #14 capsule 09/03/18 [Rx] Potassium Chloride [Klor-Con M20] 20 meq PO Q8H #6 tab.er.prt 09/03/18 [Rx] Past Medical History HEENT History: Reports: Allergic Rhinitis, Glaucoma, Sinusitis Cardiovascular History: Reports: Hypertension Respiratory History: Reports: Asthma, COPD Gastrointestinal History: Reports: Colon Polyp, Gastritis, GERD, Other (See Below) Other Gastrointestinal History: esophagitis, duodenitis, diverticulosis Genitourinary History: Reports: None WHIZZER History: Reports: Other (See Below) Other WHIZZER History: diffuse cystic mastopathy, breast surgery Musculoskeletal History: Reports: Osteoporosis Neurological History: Reports: None Psychiatric History: Reports: Anxiety, Depression Endocrine/Metabolic History: Reports: Osteoporosis Hematologic History: Reports: Anemia, Other (See Below) Other Hematologic History: pernicious anemia Immunologic History: Reports: None Oncologic (Cancer) History: Reports: None Dermatologic History: Reports: None - Past Surgical History Head Surgeries/Procedures: Reports: None HEENT Surgical History: Reports: Adenoidectomy, Cataract Surgery, Laser Surgery , Oral Surgery, Tonsillectomy Respiratory Surgical History: Reports: None GI Surgical History: Reports: Colonoscopy, EGD, Polypectomy Female Surgical History: Reports: Breast Biopsy Endocrine Surgical History: Reports: None Neurological Surgical History: Reports: None Musculoskeletal Surgical History: Reports: None Oncologic Surgical History: Reports: Biopsy of Breast Dermatological Surgical History: Reports: None Social & Family History - Tobacco Use Smoking Status *Q: Former Smoker Used Tobacco, but Quit: Yes Month/Year Tobacco Last Used: may 2018 - Caffeine Use Caffeine Use: Reports: Coffee - Recreational Drug Use Recreational Drug Use: No - Living Situation & Occupation Living situation: Reports: ED ROS GENERAL - Review of Systems Review Of Systems: See Below Constitutional: Reports: No Symptoms HEENT: Reports: No Symptoms, Vertigo Cardiovascular: Reports: No Symptoms GI/Abdominal: Reports: Abdominal Pain (Her abdominal pain more on the right side ). Denies: Constipation, Diarrhea, Nausea, Vomiting : Reports: Other (She has bladder pain) Musculoskeletal: Reports: No Symptoms Skin: Reports: No Symptoms Neurological: Reports: No Symptoms Psychiatric: Reports: Anxiety Hematologic/Lymphatic: Reports: No Symptoms ED EXAM, GI/ABD - Physical Exam Exam: See Below Exam Limited By: No Limitations General Appearance: Alert, No Apparent Distress Head: Atraumatic, Normocephalic Neck: Normal Inspection, Supple, Non-Tender, Full Range of Motion Respiratory/Chest: No Respiratory Distress, Lungs Clear, Normal Breath Sounds Cardiovascular: Regular Rate, Rhythm, No Edema, No Murmur GI/Abdominal Exam: Normal Bowel Sounds, Soft, Other (She has some vague right- sided abdominal discomfort and suprapubic discomfort no rigidity rebound or guarding) Back Exam: Normal Inspection, CVA Tenderness (R). No: CVA Tenderness (L) Extremities: Normal Inspection, Non-Tender, No Pedal Edema Course - Vital Signs Last Recorded V/S: Last Vital Signs Temp 36.6 C 09/03/18 14:21 Pulse 107 H 09/03/18 14:21 Resp 16 09/03/18 14:21 BP 116/75 09/03/18 14:21 Pulse Ox 95 09/03/18 14:21 - Orders/Labs/Meds Orders: Active Orders 24 hr Category Date Time Status CULTURE URINE [RM] Stat Lab 09/03/18 16:35 Received Labs: Laboratory Tests 09/03/18 09/03/18 09/03/18 Range/Units 15:00 15:00 16:35 WBC 8.05 (3.98-10.04) K/mm3 RBC 3.68 L (3.98-5.22) M/mm3 Hgb 11.9 (11.2-15.7) gm/L Hct 37.5 (34.1-44.9) % MCV 101.9 H (79.4-94.8) fl MCH 32.3 H (25.6-32.2) pg MCHC 31.7 L (32.2-35.5) g/dl RDW Std Deviation 53.3 H (36.4-46.3) fL Plt Count 299 (182-369) K/mm3 MPV 9.8 (9.4-12.3) fl Neutrophils % (Manual) 67 H (40-60) % Band Neutrophils % 0 (0-10) % Lymphocytes % (Manual) 24 (20-40) % Atypical Lymphs % 0 % Monocytes % (Manual) 7 (2-10) % Eosinophils % (Manual) 2 (0.7-5.8) % Basophils % (Manual) 0 L (0.1-1.2) Toxic Granulation 1+ slight Platelet Estimate Adequate Plt Morphology Comment Normal Hypochromasia 1+ slight Anisocytosis 2+ moderate Macrocytosis 2+ moderate RBC Morph Comment Not Reportable Sodium 143 (136-145) mEq/L Potassium 3.3 L (3.5-5.1) mEq/L Chloride 106 (98-107) mEq/L Carbon Dioxide 26 (21-32) mEq/L Anion Gap 14.3 (5-15) BUN 18 (7-18) mg/dL Creatinine 1.4 H (0.55-1.02) mg/dL Est Cr Clr Drug Dosing 37.72 mL/min Estimated GFR (MDRD) 37 (>60) mL/min BUN/Creatinine Ratio 12.9 L (14-18) Glucose 95 (80-115) mg/dL Calcium 8.9 (8.5-10.1) mg/dL Total Bilirubin 0.3 (0.2-1.0) mg/dL AST 15 (15-37) U/L ALT 15 (14-59) U/L Alkaline Phosphatase 59 (46-116) U/L Total Protein 6.9 (6.4-8.2) g/dl Albumin 3.0 L (3.4-5.0) g/dl Globulin 3.9 gm/dL Albumin/Globulin Ratio 0.8 L (1-2) Urine Color Yellow (Yellow) Urine Appearance Cloudy H (Clear) Urine pH 6.5 (5.0-8.0) Ur Specific [place] 1.015 (1.005-1.030) Urine Protein 2+ H (Negative) Urine Glucose (UA) Negative (Negative) Urine Ketones Negative (Negative) Urine Occult Blood 2+ H (Negative) Urine Nitrite Negative (Negative) Urine Bilirubin Negative (Negative) Urine Urobilinogen 0.2 (0.2-1.0) Ur Leukocyte Esterase 3+ H (Negative) Urine RBC 10-20 H (0-5) /hpf Urine WBC Too numerous to cnt H (0-5) /hpf Urine WBC Clumps Moderate (NOT SEEN) /hpf Ur Squamous Epith Cells 0-5 (0-5) /hpf Urine Bacteria Moderate H (FEW) /hpf Hyaline Casts 10-20 H (0-5) /lpf Urine Mucus Few (FEW) /hpf - Re-Assessments/Exams Free Text/Narrative Re-Assessment/Exam: 09/03/18 20:05 Patient's urine still looks awfully suspicious for urinary tract infection. Plain films of the abdomen showed that the stent has migrated partially into the bladder with the proximal segment in the ureter and a couple loops of coiled that stent are in the bladder. This will not get better with a foreign body in the bladder. I discussed the situation with the on-call urologist at both [facility] and [facility] thought the best place for the patient to be was with the primary surgical team in [place]. I did discuss the patient's case with Dr. Henderson the primary surgeon who will discuss the case with urology tomorrow and arrange a time for the patient to come down get further evaluation if needed and get this stent removed. The patient's culture and sensitivities from her last visit here for the UTI were reviewed and she's grown out Citrobacter and enterococcus both sensitive to the Macrobid I will continue her Macrobid for another week. Patient's potassium was found to be a little low we'll have her take some as an outpatient. Urine cultures been ordered on today's UA. Departure - Departure Time of Disposition: 20:10 Disposition: Home, Self-Care 01 Clinical Impression: Ureteral stent displacement, Urinary tract infection - Discharge Information Prescriptions: Nitrofurantoin Monohyd/M-Cryst [Macrobid 100 mg Capsule] 100 mg PO Q12H #14 capsule Potassium Chloride [Klor-Con M20] 20 meq PO Q8H #6 tab.er.prt Referrals: Peter Banks MD [Primary Care Provider] - Forms: ED Department Discharge Additional Instructions: Return to the emergency room with any questions problems worsening symptoms. Tomorrow you should be contacted by Dr. Henderson or one of the urologists for a time to be seen down in [place]. Continue taking the Macrobid as before I have given another week's worth. Your potassium was also a little low so I gave you a prescription for this take one 3 times a day for 2 days. - My Orders Last 24 Hours: My Active Orders 09/03/18 16:35 CULTURE URINE [RM] Stat - Assessment/Plan Last 24 Hours: My Active Orders 09/03/18 16:35 CULTURE URINE [RM] Stat
--- NOTE | 2018-09-03 15:42 | CR ---
Abdomen: Supine and upright views of the abdomen were obtained. Comparison: Previous abdominal x-ray of 06/02/18. Right-sided ureteral stent. Proximal end appears to be migrated into the mid ureter with distal end being coiled within the bladder. Surgical clips are seen within the lower abdomen and pelvis. Scoliosis is noted within the spine. Partially visualized right sided infusion port is seen. Bowel gas pattern is normal. Impression: 1. Migration of right ureteral stent distally as noted above. 2. Other incidental findings. Diagnostic code #3
== END 2018-09-03 20:26 | disposition home or self-care (01) ==
LOC: JD.ED 14:15
DX: T83.122A Displacement of indwelling ureteral stent, initial encounter (principal); N39.0 Urinary tract infection, site not specified; I10 Essential (primary) hypertension; J44.9 Chronic obstructive pulmonary disease, unspecified; F41.9 Anxiety disorder, unspecified; F32.9 Major depressive disorder, single episode, unspecified; Z98.49 Cataract extraction status, unspecified eye; Z79.899 Other long term (current) drug therapy; Z98.890 Other specified postprocedural states; Z87.891 Personal history of nicotine dependence
CPT/HCPCS: 36415; 74019; 74019-26; 80053; 81001; 85007; 85027; 87086; 99283; 99284-25

== ENCOUNTER 2018-09-12 13:46 | Emergency (ER) | payer MEDICARE, BC ==
[2018-09-12 14:08] VITALS: BP 147/98
[2018-09-12] MEDS: Sodium Chloride 0.9% 10 ML Syringe FLUSH PRN ×2 (15:26→17:48)
[2018-09-12] MEDS ORDERED: Diatrizoate Meglumine/Diatrizoate Sodium 37% 120 ML Bottle PO ONE (15:48)
[2018-09-12] MEDS ORDERED: Sodium Chloride 0.9% 500 ML IV ONE (16:09)
[2018-09-12] MEDS ORDERED: Iohexol 647 MG/ML 100 ML Bottle IVPUSH ONE (16:20)
--- NOTE | 2018-09-12 18:21 | EDM.PDOC ---
ED HPI GENERAL MEDICAL PROBLEM - General Chief Complaint: Abdominal Pain Stated Complaint: URINARY PROBLEMS Time Seen by Provider: 09/12/18 14:50 Source of Information: Reports: Patient, Old Records History Limitations: Reports: No Limitations - History of Present Illness INITIAL COMMENTS - FREE TEXT/NARRATIVE: 73-year-old female presents for evaluation and treatment of left lower quadrant abdominal pain. Patient reports she's been experiencing pain for the last 3 days. She also reports that she's been experiencing dysuria for the last 3 days. She reports associated symptoms of nausea and vomiting. Denies any fevers. Patient is also complaining of a sinus infection. She reports sinus pressure, pain and congestion. Patient was diagnosed with ovarian cancer in May. [place] She required a ureteral stent. This was removed last after she had recurrent urinary tract infections. She reports that she had a cystoscopy as well. Patient reports she has had colonoscopies in the past. She states she's had at least 5 colonoscopies and multiple polyps removed. She sees Dr. Montes for her ovarian cancer. She had a PET scan on August 20 and will have another PET scan in October. She reports in addition to her ovarian cancer they are watching area in her colon. At this time she's not had any chemotherapy or radiation. Primary care provider is Dr. Banks Left Lower Abdominal Pain Score (Numeric/FACES): 5 - Related Data Allergies Allergy/AdvReac Type Severity Reaction Status Date / Time No Known Allergies Allergy Verified 09/03/18 14:24 Home Meds: Home Meds Albuterol Sulfate 1 puff INH ASDIRECTED PRN 11/18/13 [History] Venlafaxine [Effexor] 150 mg PO DAILY 11/18/13 [History] Albuterol/Ipratropium [DuoNeb 3.0-0.5 MG/3 ML] 3 ml INH TID 10/18/15 [History] Budesonide [Pulmicort] 1 dose INH BID 10/18/15 [History] Cyanocobalamin (Vitamin B-12) [Vitamin B-12] 1,000 mcg INJECT Q14D 10/18/15 [ History] Denosumab [Prolia] 60 mg SUBCUT ASDIRECTED 10/18/15 [History] Olopatadine [Patanol 0.1% Ophth Soln] 1 drop EYEBOTH BID PRN 10/18/15 [History] guaiFENesin [Mucinex] 600 mg PO DAILY PRN 10/18/15 [History] Dexamethasone/Tobramycin [Tobradex Ophth Susp] 1 drop EYEBOTH TID 11/15/17 [ History] Ferrous Sulfate [Iron] 1 tab PO DAILY 11/15/17 [History] Fluticasone Propionate [Flonase] 1 - 2 spray NASBOTH DAILY 11/15/17 [History] Fluticasone/Vilanterol [Breo Ellipta 200-25 Mcg INH] 1 puff INH DAILY 11/15/17 [ History] Latanoprost 1 drop EYEBOTH DAILY 11/15/17 [History] Loteprednol Etabonate [Alrex] 1 drop EYEBOTH TID 11/15/17 [History] Melatonin 5 mg PO BEDTIME 11/15/17 [History] Ondansetron [Ondansetron ODT] 4 mg PO Q4H PRN 11/15/17 [History] Rosuvastatin Calcium 5 mg PO DAILY 11/15/17 [History] busPIRone [Buspar] 10 mg PO TID 11/15/17 [History] hydrOXYzine pamoate [Vistaril] 25 mg PO TID PRN 11/15/17 [History] Nitrofurantoin Monohyd/M-Cryst [Macrobid 100 mg Capsule] 100 mg PO Q12H #14 capsule 09/03/18 [Rx] Potassium Chloride [Klor-Con M20] 20 meq PO Q8H #6 tab.er.prt 09/03/18 [Rx] Past Medical History HEENT History: Reports: Allergic Rhinitis, Glaucoma, Sinusitis Cardiovascular History: Reports: Hypertension Respiratory History: Reports: Asthma, COPD Gastrointestinal History: Reports: Colon Polyp, Gastritis, GERD, Other (See Below) Other Gastrointestinal History: esophagitis, duodenitis, diverticulosis Genitourinary History: Reports: None 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 (See Below) Other DUST COLLECTOR History: diffuse cystic mastopathy, breast surgery Musculoskeletal History: Reports: Osteoporosis Neurological History: Reports: None Psychiatric History: Reports: Anxiety, Depression Endocrine/Metabolic History: Reports: Osteoporosis Hematologic History: Reports: Anemia, Other (See Below) Other Hematologic History: pernicious anemia Immunologic History: Reports: None Oncologic (Cancer) History: Reports: None Dermatologic History: Reports: None - Past Surgical History Head Surgeries/Procedures: Reports: None HEENT Surgical History: Reports: Adenoidectomy, Cataract Surgery, Laser Surgery , Oral Surgery, Tonsillectomy Respiratory Surgical History: Reports: None GI Surgical History: Reports: Colonoscopy, EGD, Polypectomy Female Surgical History: Reports: Breast Biopsy Endocrine Surgical History: Reports: None Neurological Surgical History: Reports: None Musculoskeletal Surgical History: Reports: None Oncologic Surgical History: Reports: Biopsy of Breast Dermatological Surgical History: Reports: None Social & Family History - Tobacco Use Smoking Status *Q: Current Every Day Smoker Years of Tobacco use: 50 Packs/Tins Daily: 0.2 - Caffeine Use Caffeine Use: Reports: Coffee - Recreational Drug Use Recreational Drug Use: No - Living Situation & Occupation Living situation: Reports: ED ROS GENERAL - Review of Systems Review Of Systems: See Below Constitutional: Denies: Fever HEENT: Reports: Sinus Problem GI/Abdominal: Reports: Abdominal Pain (LLQ), Nausea, Vomiting : Reports: Dysuria ED EXAM, GI/ABD - Physical Exam Exam: See Below Exam Limited By: No Limitations General Appearance: Alert, WD/WN, No Apparent Distress Eyes: Bilateral: Normal Appearance Ears: Normal External Exam Nose: Normal Inspection Throat/Mouth: Normal Inspection, Normal Lips, Normal Voice, No Airway Compromise Neck: Normal Inspection Respiratory/Chest: No Respiratory Distress, Lungs Clear, Normal Breath Sounds Cardiovascular: Normal Peripheral Pulses, Regular Rate, Rhythm, No Murmur GI/Abdominal Exam: Normal Bowel Sounds, Soft, Non-Tender Neurological: Alert, Oriented, Normal Cognition Psychiatric: Normal Affect, Normal Mood Skin Exam: Warm, Dry, Normal Color Course - Vital Signs Last Recorded V/S: Last Vital Signs Temp 98.6 F 09/12/18 14:00 Pulse 110 H 09/12/18 14:00 Resp 16 09/12/18 14:00 BP 147/98 H 09/12/18 14:00 Pulse Ox 96 09/12/18 14:00 - Orders/Labs/Meds Labs: Laboratory Tests 09/12/18 09/12/18 09/12/18 Range/Units 15:22 15:22 15:39 WBC 7.31 (3.98-10.04) K/mm3 RBC 3.92 L (3.98-5.22) M/mm3 Hgb 12.4 (11.2-15.7) gm/L Hct 38.9 (34.1-44.9) % MCV 99.2 H (79.4-94.8) fl MCH 31.6 (25.6-32.2) pg MCHC 31.9 L (32.2-35.5) g/dl RDW Std Deviation 49.1 H (36.4-46.3) fL Plt Count 322 (182-369) K/mm3 MPV 9.8 (9.4-12.3) fl Neutrophils % (Manual) 65 H (40-60) % Band Neutrophils % 2 (0-10) % Lymphocytes % (Manual) 26 (20-40) % Atypical Lymphs % 0 % Monocytes % (Manual) 3 (2-10) % Eosinophils % (Manual) 3 (0.7-5.8) % Basophils % (Manual) 1 (0.1-1.2) Platelet Estimate Adequate Anisocytosis 1+ slight Macrocytosis 1+ slight RBC Morph Comment Not Reportable Sodium 142 (136-145) mEq/L Potassium 3.1 L (3.5-5.1) mEq/L Chloride 104 (98-107) mEq/L Carbon Dioxide 27 (21-32) mEq/L Anion Gap 14.1 (5-15) BUN 18 (7-18) mg/dL Creatinine 1.7 H (0.55-1.02) mg/dL Est Cr Clr Drug Dosing 30.62 mL/min Estimated GFR (MDRD) 30 (>60) mL/min BUN/Creatinine Ratio 10.6 L (14-18) Glucose 101 (83-115) mg/dL Calcium 10.1 (8.5-10.1) mg/dL Total Bilirubin 0.3 (0.2-1.0) mg/dL AST 13 L (15-37) U/L ALT 14 (14-59) U/L Alkaline Phosphatase 63 (46-116) U/L C-Reactive Protein 1.0 (<1.0) mg/dL Total Protein 7.3 (6.4-8.2) g/dl Albumin 3.3 L (3.4-5.0) g/dl Globulin 4.0 gm/dL Albumin/Globulin Ratio 0.8 L (1-2) Lipase 216 (73-393) U/L Urine Color Yellow (Yellow) Urine Appearance Clear (Clear) Urine pH 6.5 (5.0-8.0) Ur Specific [place] 1.015 (1.005-1.030) Urine Protein Negative (Negative) Urine Glucose (UA) Negative (Negative) Urine Ketones Negative (Negative) Urine Occult Blood Negative (Negative) Urine Nitrite Negative (Negative) Urine Bilirubin Negative (Negative) Urine Urobilinogen 0.2 (0.2-1.0) Ur Leukocyte Esterase Negative (Negative) Urine RBC 0-5 (0-5) /hpf Urine WBC 0-5 (0-5) /hpf Ur Squamous Epith Cells 0-5 (0-5) /hpf Urine Bacteria Few (FEW) /hpf Urine Mucus Not seen (FEW) /hpf Meds: Medications Discontinued Medications Generic Name Dose Route Start Last Admin Trade Name Freq PRN Reason Stop Dose Admin Diatrizoate Meglum/Diatrizoate Sod 90 ml 09/12/18 15:48 09/12/18 17:48 Gastrografin 37% PO 09/12/18 15:49 90 ml ONETIME ONE Administration Sodium Chloride 500 mls @ 999 mls/hr 09/12/18 16:09 09/12/18 16:11 Normal Saline IV 09/12/18 16:39 999 mls/hr ONETIME ONE Administration Iohexol 100 ml 09/12/18 16:20 09/12/18 17:48 Omnipaque-300 IVPUSH 09/12/18 16:21 100 ml ONETIME ONE Administration Sodium Chloride 10 ml 09/12/18 15:02 09/12/18 17:48 Saline Flush FLUSH 10 ml ASDIRECTED PRN Administration Keep Vein Open - Radiology Interpretation Free Text/Narrative:: Comparison: Prior CT abdomen and pelvis exam is 05/26/18. Findings: Small portion of the visualized lung bases show nothing acute. Liver contains no focal abnormality. Spleen appears within normal limits. Small hiatal hernia is noted. Adrenal glands show no nodule. Gallbladder contains no calcified gallstones. Hydronephrosis is noted of the right kidney. Dilated right ureter seen with etiology not being identified. This is similar to previous exam. Left kidney shows no hydronephrosis. Left kidney shows contrast excretion with contrast noted within the bladder. No contrast excretion is seen into the right ureter on with contrast remaining within the collecting system of the right kidney. Aorta shows atherosclerotic change which continues into the iliac vessels. No aneurysm is seen. No retroperitoneal adenopathy is noted. No pelvic mass is seen. Previous pelvic mass within the right pelvis which was seen on previous CT exam is no longer present. Minimal free fluid is seen within the pelvis. Diverticuli are seen within sigmoid colon without diverticulitis. Appendix not visualized with certainty. Scattered surgical clips are seen. Degenerative change and scoliosis is seen within the spine. No acute osseous abnormality is appreciated. Impression: 1. Right-sided hydronephrosis and hydroureter. This finding is fairly stable from previous exam. 2. Left kidney appears within normal limits. 3. Small amount of fluid is seen within the pelvis. 4. Previous right pelvic mass is no longer seen as noted on prior exam. 3. Nothing acute is definitely appreciated on CT study of the abdomen and pelvis. - Re-Assessments/Exams Free Text/Narrative Re-Assessment/Exam: 09/12/18 18:35 I reviewed the labs and imaging with the patient. Her left lower quadrant pain is improving. I suspect she likely had some constipation which is resolving w the oral contrast. We'll discharge home with treatment for sinusitis. Discharge instructions as documented. Departure - Departure Time of Disposition: 18:35 Disposition: Home, Self-Care 01 Condition: Good Clinical Impression: Constipation, Sinusitis - Discharge Information *PRESCRIPTION DRUG MONITORING PROGRAM REVIEWED*: No *COPY OF PRESCRIPTION DRUG MONITORING REPORT IN PATIENT FILIBERTO: No Instructions: Constipation, Adult, [id number], Sinusitis, Adult, [id number] Referrals: Peter Banks MD [Primary Care Provider] - Forms: ED Department Discharge Additional Instructions: take the amoxicillin as prescribed. 1 tab PO 3 times a day for 10 days. Take this with food. Recommend a probiotic to help reduce side effects of upset stomach, nausea and diarrhea. make sure you are drinking plenty of fluids. Follow-up with your primary care provider next week for recheck of your symptoms. Please return to the ER if your symptoms change or worsen.
--- NOTE | 2018-09-12 18:24 | CT ---
CT abdomen and pelvis Technique: Multiple axial sections were obtained from above the dome of the diaphragm inferiorly through the pubic symphysis. Intravenous and oral contrast was utilized. Comparison: Prior CT abdomen and pelvis exam is 05/26/18. Findings: Small portion of the visualized lung bases show nothing acute. Liver contains no focal abnormality. Spleen appears within normal limits. Small hiatal hernia is noted. Adrenal glands show no nodule. Gallbladder contains no calcified gallstones. Hydronephrosis is noted of the right kidney. Dilated right ureter seen with etiology not being identified. This is similar to previous exam. Left kidney shows no hydronephrosis. Left kidney shows contrast excretion with contrast noted within the bladder. No contrast excretion is seen into the right ureter on with contrast remaining within the collecting system of the right kidney. Aorta shows atherosclerotic change which continues into the iliac vessels. No aneurysm is seen. No retroperitoneal adenopathy is noted. No pelvic mass is seen. Previous pelvic mass within the right pelvis which was seen on previous CT exam is no longer present. Minimal free fluid is seen within the pelvis. Diverticuli are seen within sigmoid colon without diverticulitis. Appendix not visualized with certainty. Scattered surgical clips are seen. Degenerative change and scoliosis is seen within the spine. No acute osseous abnormality is appreciated. Impression: 1. Right-sided hydronephrosis and hydroureter. This finding is fairly stable from previous exam. 2. Left kidney appears within normal limits. 3. Small amount of fluid is seen within the pelvis. 4. Previous right pelvic mass is no longer seen as noted on prior exam. 3. Nothing acute is definitely appreciated on CT study of the abdomen and pelvis. Diagnostic code #3
== END 2018-09-12 19:08 | disposition home or self-care (01) ==
LOC: JD.ED 13:46
DX: K59.00 Constipation, unspecified (principal); J32.9 Chronic sinusitis, unspecified; J44.9 Chronic obstructive pulmonary disease, unspecified; I10 Essential (primary) hypertension; F41.9 Anxiety disorder, unspecified; F32.9 Major depressive disorder, single episode, unspecified; F17.210 Nicotine dependence, cigarettes, uncomplicated; Z79.899 Other long term (current) drug therapy
CPT/HCPCS: 36415; 74177; 80053; 81001; 83690; 85007; 85027; 86140; 96360; 99284; J7040; Q9963; Q9967

== ENCOUNTER 2018-09-19 12:21 | Emergency (ER) | payer MEDICARE, BC ==
[2018-09-19 12:38] VITALS: BP 175/101
--- NOTE | 2018-09-19 13:05 | EDM.PDOC ---
ED HPI GENERAL MEDICAL PROBLEM - General Chief Complaint: Respiratory Problem Stated Complaint: BRONCHITIS Time Seen by Provider: 09/19/18 12:37 Source of Information: Reports: Patient History Limitations: Reports: No Limitations - History of Present Illness INITIAL COMMENTS - FREE TEXT/NARRATIVE: The patient presents with a cough, congestion and shortness of breath. She has a history of COPD and she takes a nebulizer 3 times per day. She had similar symptoms in the past. She usually needs an antibiotic and sometimes steroids. She has no fever but she does have chills. She has sinus congestion. She was recently treated for sinusitis. She has no chest pain but she does have shortness of breath. She was recently diagnosed with ovarian cancer in May and had surgery. She has a malignant polyp in her colon and she is going to see Dr Montes soon. Onset: Gradual Duration: Week(s): Severity: Moderate Improves with: Reports: None Worsens with: Reports: None Associated Symptoms: Reports: Cough, Fever/Chills, Headaches (Sinus pressure). Denies: Chest Pain, Nausea/Vomiting, Shortness of Breath Right Chest Pain Score (Numeric/FACES): 4 - Related Data Allergies Allergy/AdvReac Type Severity Reaction Status Date / Time No Known Allergies Allergy Verified 09/19/18 12:37 Home Meds: Home Meds Albuterol Sulfate 1 puff INH ASDIRECTED PRN 11/18/13 [History] Venlafaxine [Effexor] 150 mg PO DAILY 11/18/13 [History] Albuterol/Ipratropium [DuoNeb 3.0-0.5 MG/3 ML] 3 ml INH TID 10/18/15 [History] Budesonide [Pulmicort] 1 dose INH BID 10/18/15 [History] Cyanocobalamin (Vitamin B-12) [Vitamin B-12] 1,000 mcg INJECT Q14D 10/18/15 [ History] Denosumab [Prolia] 60 mg SUBCUT ASDIRECTED 10/18/15 [History] Olopatadine [Patanol 0.1% Ophth Soln] 1 drop EYEBOTH BID PRN 10/18/15 [History] guaiFENesin [Mucinex] 600 mg PO DAILY PRN 10/18/15 [History] Dexamethasone/Tobramycin [Tobradex Ophth Susp] 1 drop EYEBOTH TID 11/15/17 [ History] Ferrous Sulfate [Iron] 1 tab PO DAILY 11/15/17 [History] Fluticasone Propionate [Flonase] 1 - 2 spray NASBOTH DAILY 11/15/17 [History] Fluticasone/Vilanterol [Breo Ellipta 200-25 Mcg INH] 1 puff INH DAILY 11/15/17 [ History] Latanoprost 1 drop EYEBOTH DAILY 11/15/17 [History] Loteprednol Etabonate [Alrex] 1 drop EYEBOTH TID 11/15/17 [History] Melatonin 5 mg PO BEDTIME 11/15/17 [History] Ondansetron [Ondansetron ODT] 4 mg PO Q4H PRN 11/15/17 [History] Rosuvastatin Calcium 5 mg PO DAILY 11/15/17 [History] busPIRone [Buspar] 10 mg PO TID 11/15/17 [History] hydrOXYzine pamoate [Vistaril] 25 mg PO TID PRN 11/15/17 [History] Nitrofurantoin Monohyd/M-Cryst [Macrobid 100 mg Capsule] 100 mg PO Q12H #14 capsule 09/03/18 [Rx] Potassium Chloride [Klor-Con M20] 20 meq PO Q8H #6 tab.er.prt 09/03/18 [Rx] Albuterol Sulfate 2.5 mg IH TID #25 ampule 09/19/18 [Rx] Azithromycin [Zithromax] 250 mg PO DAILY #6 tab 09/19/18 [Rx] predniSONE [Prednisone] 20 mg PO DAILY #10 tablet 09/19/18 [Rx] Past Medical History HEENT History: Reports: Allergic Rhinitis, Glaucoma, Sinusitis Cardiovascular History: Reports: Hypertension Respiratory History: Reports: Asthma, COPD Gastrointestinal History: Reports: Colon Polyp, Gastritis, GERD, Other (See Below) Other Gastrointestinal History: esophagitis, duodenitis, diverticulosis Genitourinary History: Reports: None 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 (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 Below) 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 RAY TUBE ASSEMBLER History: diffuse cystic mastopathy, breast surgery Musculoskeletal History: Reports: Osteoporosis Neurological History: Reports: None Psychiatric History: Reports: Anxiety, Depression Endocrine/Metabolic History: Reports: Osteoporosis Hematologic History: Reports: Anemia, Other (See Below) Other Hematologic History: pernicious anemia Immunologic History: Reports: None Oncologic (Cancer) History: Reports: None Dermatologic History: Reports: None - Past Surgical History Head Surgeries/Procedures: Reports: None HEENT Surgical History: Reports: Adenoidectomy, Cataract Surgery, Laser Surgery , Oral Surgery, Tonsillectomy Respiratory Surgical History: Reports: None GI Surgical History: Reports: Colonoscopy, EGD, Polypectomy Female Surgical History: Reports: Breast Biopsy Endocrine Surgical History: Reports: None Neurological Surgical History: Reports: None Musculoskeletal Surgical History: Reports: None Oncologic Surgical History: Reports: Biopsy of Breast Dermatological Surgical History: Reports: None Social & Family History - Tobacco Use Smoking Status *Q: Current Every Day Smoker Years of Tobacco use: 50 Packs/Tins Daily: 0.2 - Caffeine Use Caffeine Use: Reports: Coffee - Living Situation & Occupation Living situation: Reports: ED ROS GENERAL - Review of Systems Review Of Systems: See Below Constitutional: Reports: Chills. Denies: Fever HEENT: Reports: Other (Congestion) Respiratory: Reports: Shortness of Breath, Cough Cardiovascular: Reports: No Symptoms Endocrine: Reports: No Symptoms GI/Abdominal: Reports: No Symptoms : Reports: No Symptoms Musculoskeletal: Reports: No Symptoms Skin: Reports: No Symptoms ED EXAM, GENERAL - Physical Exam Exam: See Below Exam Limited By: No Limitations General Appearance: Alert, No Apparent Distress Ears: Normal External Exam Nose: Normal Inspection Head: Atraumatic, Normocephalic Neck: Normal Inspection Respiratory/Chest: No Respiratory Distress, Lungs Clear, Normal Breath Sounds Cardiovascular: Regular Rate, Rhythm, No Edema, No Murmur GI/Abdominal: Soft, Non-Tender, No Organomegaly, No Mass Back Exam: Normal Inspection Extremities: Normal Inspection Course - Vital Signs Last Recorded V/S: Last Vital Signs Temp 97.5 F 09/19/18 12:30 Pulse 62 09/19/18 12:30 Resp 16 09/19/18 12:30 BP 175/101 H 09/19/18 12:30 Pulse Ox 95 09/19/18 12:30 Departure - Departure Time of Disposition: 13:10 Disposition: Home, Self-Care 01 Condition: Good Clinical Impression: Bronchitis - Discharge Information *PRESCRIPTION DRUG MONITORING PROGRAM REVIEWED*: No *COPY OF PRESCRIPTION DRUG MONITORING REPORT IN PATIENT FILIBERTO: No Prescriptions: Albuterol Sulfate 2.5 mg IH TID #25 ampule Azithromycin [Zithromax] 250 mg PO DAILY #6 tab predniSONE [Prednisone] 20 mg PO DAILY #10 tablet Referrals: Peter Banks MD [Primary Care Provider] - 1 Week Additional Instructions: Take the medication as prescribed. Take tylenol or motrin as needed for any fever. Take a probiotic like yugart to avoid diarrhea. Please return if you are worse.
== END 2018-09-19 13:24 | disposition home or self-care (01) ==
LOC: JD.ED 12:21
DX: J40 Bronchitis, not specified as acute or chronic (principal); J44.9 Chronic obstructive pulmonary disease, unspecified; F41.9 Anxiety disorder, unspecified; F32.9 Major depressive disorder, single episode, unspecified; F17.210 Nicotine dependence, cigarettes, uncomplicated; Z79.899 Other long term (current) drug therapy
CPT/HCPCS: 99283

== ENCOUNTER 2018-09-30 10:12 | Emergency (ER) | payer MEDICARE, BC ==
[2018-09-30 10:23] VITALS: BP 157/89
--- NOTE | 2018-09-30 10:43 | EDM.PDOC ---
ED HPI GENERAL MEDICAL PROBLEM - General Chief Complaint: Genitourinary Problem Stated Complaint: POSSIBLE UTI Time Seen by Provider: 09/30/18 10:42 Source of Information: Reports: Patient History Limitations: Reports: No Limitations - History of Present Illness INITIAL COMMENTS - FREE TEXT/NARRATIVE: 73-year-old female presents to the ED with complaints of left lower quadrant abdominal pain that seems to be worsened by voiding. Pain is constant and she does experience some terminal dysuria. She reports finishing a course of azithromycin about 4 days ago and felt that it did help but symptoms are still present. She feels like it may be in her left ureter. No fever or chills. No definite flank pain on the left side. No right-sided abdominal pain. Still appreciate urinary frequency with food dysuria other than at terminal voiding. Patient had a right-sided ureteric stent removed about 2 weeks ago. She also has persistent upper respiratory tract symptoms with sinus congestion and postnasal drip with mild nonproductive cough. She lost 22 pounds of weight overall with her current illness and is gained a couple of pounds back since the stent was removed 2 weeks ago. Onset: Unknown/Unsure (Left lower quadrant abdominal pain for at least the last 3 days and perhaps a few days longer. 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 below) (None.) Left Pelvic Pain Score (Numeric/FACES): 5 - Related Data Allergies Allergy/AdvReac Type Severity Reaction Status Date / Time No Known Allergies Allergy Verified 09/30/18 10:23 Home Meds: Home Meds Albuterol Sulfate 1 puff INH ASDIRECTED PRN 11/18/13 [History] Venlafaxine [Effexor] 150 mg PO DAILY 11/18/13 [History] Albuterol/Ipratropium [DuoNeb 3.0-0.5 MG/3 ML] 3 ml INH TID 10/18/15 [History] Budesonide [Pulmicort] 1 dose INH BID 10/18/15 [History] Cyanocobalamin (Vitamin B-12) [Vitamin B-12] 1,000 mcg INJECT Q14D 10/18/15 [ History] Denosumab [Prolia] 60 mg SUBCUT ASDIRECTED 10/18/15 [History] Olopatadine [Patanol 0.1% Ophth Soln] 1 drop EYEBOTH BID PRN 10/18/15 [History] guaiFENesin [Mucinex] 600 mg PO DAILY PRN 10/18/15 [History] Dexamethasone/Tobramycin [Tobradex Ophth Susp] 1 drop EYEBOTH TID 11/15/17 [ History] Ferrous Sulfate [Iron] 1 tab PO DAILY 11/15/17 [History] Fluticasone Propionate [Flonase] 1 - 2 spray NASBOTH DAILY 11/15/17 [History] Fluticasone/Vilanterol [Breo Ellipta 200-25 Mcg INH] 1 puff INH DAILY 11/15/17 [ History] Latanoprost 1 drop EYEBOTH DAILY 11/15/17 [History] Loteprednol Etabonate [Alrex] 1 drop EYEBOTH TID 11/15/17 [History] Melatonin 5 mg PO BEDTIME 11/15/17 [History] Ondansetron [Ondansetron ODT] 4 mg PO Q4H PRN 11/15/17 [History] Rosuvastatin Calcium 5 mg PO DAILY 11/15/17 [History] busPIRone [Buspar] 10 mg PO TID 11/15/17 [History] hydrOXYzine pamoate [Vistaril] 25 mg PO TID PRN 11/15/17 [History] Nitrofurantoin Monohyd/M-Cryst [Macrobid 100 mg Capsule] 100 mg PO Q12H #14 capsule 09/03/18 [Rx] Potassium Chloride [Klor-Con M20] 20 meq PO Q8H #6 tab.er.prt 09/03/18 [Rx] Albuterol Sulfate 2.5 mg IH TID #25 ampule 09/19/18 [Rx] predniSONE [Prednisone] 20 mg PO DAILY #10 tablet 09/19/18 [Rx] Doxycycline [Vibramycin] 100 mg PO BID #20 cap 09/30/18 [Rx] Past Medical History HEENT History: Reports: Allergic Rhinitis, Glaucoma, Sinusitis Cardiovascular History: Reports: Hypertension Respiratory History: Reports: Asthma, COPD Gastrointestinal History: Reports: Colon Polyp, Gastritis, GERD, Other (See Below) Other Gastrointestinal History: esophagitis, duodenitis, diverticulosis Genitourinary History: Reports: None 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: Reports: Other (See Below) Other 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: diffuse cystic mastopathy, breast surgery Musculoskeletal History: Reports: Osteoporosis Neurological History: Reports: None Psychiatric History: Reports: Anxiety, Depression Endocrine/Metabolic History: Reports: Osteoporosis Hematologic History: Reports: Anemia, Other (See Below) Other Hematologic History: pernicious anemia Immunologic History: Reports: None Oncologic (Cancer) History: Reports: None Dermatologic History: Reports: None - Past Surgical History Head Surgeries/Procedures: Reports: None HEENT Surgical History: Reports: Adenoidectomy, Cataract Surgery, Laser Surgery , Oral Surgery, Tonsillectomy Respiratory Surgical History: Reports: None GI Surgical History: Reports: Colonoscopy, EGD, Polypectomy Female Surgical History: Reports: Breast Biopsy Endocrine Surgical History: Reports: None Neurological Surgical History: Reports: None Musculoskeletal Surgical History: Reports: None Oncologic Surgical History: Reports: Biopsy of Breast Dermatological Surgical History: Reports: None Social & Family History - Caffeine Use Caffeine Use: Reports: Coffee - Living Situation & Occupation Living situation: Reports: ED ROS GENERAL - Review of Systems Review Of Systems: See Below Constitutional: Reports: Malaise, Weakness, Fatigue, Weight Loss (22 pound weight loss during this course of illness with gaining a few pounds back over the last 2 weeks and stent was removed.). Denies: Fever, Chills HEENT: Reports: Glasses Respiratory: Reports: Shortness of Breath, Cough (Seems to be from postnasal drip. Cough is nonproductive). Denies: Wheezing, Pleuritic Chest Pain (On exertion.) Cardiovascular: Reports: Blood Pressure Problem. Denies: Chest Pain, Claudication, Dyspnea on Exertion, Edema, Lightheadedness, Orthopnea Endocrine: Reports: Fatigue GI/Abdominal: Reports: Abdominal Pain (Left lower quadrant seems to be worse with voiding.), Constipation, Decreased Appetite, Nausea (Intermittent nausea.) . Denies: Diarrhea (Stools have been more difficult and harder to pass.), Difficulty Swallowing, Distension, Flatus, Hematemesis, Hematochezia, Melena : Reports: Frequency (Terminal dysuria.), Other Musculoskeletal: Reports: Back Pain Skin: Reports: No Symptoms Neurological: Reports: No Symptoms Psychiatric: Reports: No Symptoms Hematologic/Lymphatic: Reports: No Symptoms Immunologic: Reports: No Symptoms ED EXAM, RENAL/ - Physical Exam Exam: See Below Exam Limited By: No Limitations General Appearance: Alert, WD/WN, Anxious (Mildly anxious.) Eye Exam: Bilateral Eye: Normal Inspection Throat/Mouth: Other Head: Atraumatic, Normocephalic Neck: Normal Inspection, Full Range of Motion, Tender Lateral. No: Lymphadenopathy (L), Lymphadenopathy (R) Respiratory/Chest: Normal Breath Sounds, Respiratory Distress (Mild tachypnea at rest.). No: Decreased Breath Sounds, Crackles, Rales, Rhonchi, Wheezing Cardiovascular: Regular Rate, Rhythm, No Edema, No Gallop, No Murmur, No Rub. No: Normal Peripheral Pulses GI/Abdominal: Soft, No Distention, Tender, Abnormal Bowel Sounds (Bowel sounds are increased throughout all 4 quadrants with mild tympany to percussion upper abdomen compatible with mild aerophagia.), Other (Palpable left hemicolon and suprapubic colon.). No: No Organomegaly Back Exam: Other. No: CVA Tenderness (L) (Mild kyphosis thoracic spine.), CVA Tenderness (R) Extremities: Normal Inspection, Normal Range of Motion, Non-Tender Neurological: Alert, Oriented, CN II-XII Intact, Normal Cognition, No Motor/ Sensory Deficits Psychiatric: Normal Mood, Anxious Course - Vital Signs Last Recorded V/S: Last Vital Signs Temp 36.7 C 09/30/18 10:19 Pulse 65 09/30/18 10:19 Resp 19 09/30/18 10:19 BP 157/89 H 09/30/18 10:19 Pulse Ox 0 L 09/30/18 10:19 - Orders/Labs/Meds Orders: Active Orders 24 hr Category Date Time Status Abdomen 1V Flat [CR] Stat Exams 09/30/18 10:57 Taken Labs: Laboratory Tests 07/01/19 Range/Units 10:45 Urine Color Yellow (Yellow) Urine Appearance Clear (Clear) Urine pH 7.0 (5.0-8.0) Ur Specific [place] 1.010 (1.005-1.030) Urine Protein Negative (Negative) Urine Glucose (UA) Negative (Negative) Urine Ketones Negative (Negative) Urine Occult Blood Negative (Negative) Urine Nitrite Negative (Negative) Urine Bilirubin Negative (Negative) Urine Urobilinogen 0.2 (0.2-1.0) Ur Leukocyte Esterase Negative (Negative) Urine RBC Not seen (0-5) /hpf Urine WBC 0-5 (0-5) /hpf Ur Epithelial Cells 0-5 (0-5) /hpf Urine Bacteria Not seen (FEW) /hpf Urine Mucus Not seen (FEW) /hpf Meds: Medications Discontinued Medications Generic Name Dose Route Start Last Admin Trade Name Freq PRN Reason Stop Dose Admin Magnesium Citrate 210 ml 09/30/18 13:44 Citrate Of Magnesia PO 09/30/18 13:45 ONETIME ONE - Radiology Interpretation Free Text/Narrative:: 73-year-old female presents the ED for evaluation of persistent left lower quadrant abdominal pain. She feels this is worse when voiding. She recently finished a prescription of Zithromax for UTI and she states most of her symptoms seem to get better but she wonders if she needs more medication. She seems to have terminal dysuria. No associated fever chills or flank pain. Examination reveals hyperactive bowel sounds and a palpable left hemicolon and sigmoid colon. Suspect she is constipated as well. Plan urinalysis and x-ray of the abdomen to be done. - Re-Assessments/Exams Free Text/Narrative Re-Assessment/Exam: 09/30/18 12:43 Urinalysis has returned completely normal. KUB reveals a large amount of increased stool throughout the splenic flexure descending colon and rectal vault. A few dilated loops of small bowel left lower quadrant but she has very active bowel sounds. No signs of an ileus. Plan patient will be discharged home to use Citroma 7 ounces by mouth with 6 ounces of juice of choice to provide bowel cleanse. Suggested perhaps using MiraLAX powder 17 g every day to prevent constipation issues. We'll place her on doxycycline 100 mg twice daily for the next 10 days for chronic sinus infection and postnasal drip. This would also cover for any urinary pathogens yet the urinalysis at this time is normal. She will follow-up with her personal care physician if any further problems occur. Departure - Departure Time of Disposition: 13:45 Disposition: Home, Self-Care 01 Condition: Fair Clinical Impression: Abdominal pain, left lower quadrant, Constipation by delayed colonic transit, Sinusitis - Discharge Information *PRESCRIPTION DRUG MONITORING PROGRAM REVIEWED*: Not Applicable *COPY OF PRESCRIPTION DRUG MONITORING REPORT IN PATIENT FILIBERTO: Not Applicable Prescriptions: Doxycycline [Vibramycin] 100 mg PO BID #20 cap Referrals: Peter Banks MD [Primary Care Provider] - Forms: ED Department Discharge Additional Instructions: Evaluation in the emergency room today in regards to persistent left lower quadrant abdominal pain with concerns about incomplete treatment of recent urinary tract infection. No pain on the right side. Some pain at the end of voiding suggesting what we call terminal dysuria. Urinalysis performed in the emergency department is completely normal with no signs of infection evident. An x-ray of the abdomen reveals fairly extensive constipation of the left descending colon and sigmoid colon suggesting constipation of the left side of the bowel. I suspect this is the cause of your pain as I can also feel this on examination. Due to persistent upper respiratory tract symptoms I sinusitis suggest use of antibiotic doxycycline 100 mg twice daily for the next 10 days to clear up infection. Treatment of the constipation is to be magnesium citrate or Citroma 7 ounces of this medication mixed with 5-6 ounces of juice of choice by mouth once. This medicine usually starts to work in 1-2 hours and the bowels were move 3 or 4 times often ending in a little bit of diarrhea. We use this medication because it does not cause cramping. If constipation issues continue may need to take MiraLAX powder which is an [id number] medication. Suggest taking 1 scoop or 17 g once daily to keep the bowels regular. Follow-up with personal care physician if any further problems occur. - My Orders Last 24 Hours: My Active Orders 09/30/18 10:57 Abdomen 1V Flat [CR] Stat - Assessment/Plan Last 24 Hours: My Active Orders 09/30/18 10:57 Abdomen 1V Flat [CR] Stat
[2018-09-30] MEDS ORDERED: Magnesium Citrate Solution 296 ML Bottle PO ONE (13:44)
--- NOTE | 2018-09-30 13:55 | CR ---
Abdomen: Supine view of the abdomen was obtained. Comparison: Prior abdominal x-ray of 09/03/18. Mildly dilated air-filled loops of small bowel are seen. Difficult to exclude mid small bowel obstruction. Bony structures appear without acute finding. Surgical clips are seen within the pelvis. Calcification is noted within the lower left pelvis which is compatible with phlebolith. Impression: 1. Slightly dilated air-filled small bowel loops. Difficult to exclude small bowel obstruction. 2. Other incidental findings. Diagnostic code #3
== END 2018-09-30 13:59 | disposition home or self-care (01) ==
LOC: JD.ED 10:12
DX: K59.01 Slow transit constipation (principal); J32.9 Chronic sinusitis, unspecified; I10 Essential (primary) hypertension; J44.9 Chronic obstructive pulmonary disease, unspecified; K21.9 Gastro-esophageal reflux disease without esophagitis; D64.9 Anemia, unspecified; Z98.49 Cataract extraction status, unspecified eye; Z98.890 Other specified postprocedural states; Z79.899 Other long term (current) drug therapy
CPT/HCPCS: 74018; 81001; 99284; A9270; 99283

== ENCOUNTER 2018-11-19 05:28 | Inpatient (IN) | payer MEDICARE, BC ==
[2018-11-19] MEDS ORDERED: Ondansetron 4 MG/2 ML SDV IVPUSH ONE (07:06)
[2018-11-19] MEDS ORDERED: Sodium Chloride 0.9% 1,000 ML IV STA (07:06)
[2018-11-19] MEDS ORDERED: Sodium Chloride 0.9% 10 ML Syringe FLUSH PRN (07:06)
[2018-11-19] MEDS ORDERED: HYDROmorphone 0.5 MG/0.5 ML Syringe IVPUSH ONE (07:07)
[2018-11-19] MEDS ORDERED: Sodium Chloride 0.9% 10 ML Syringe FLUSH ONE (07:55)
[2018-11-19] MEDS ORDERED: Iopamidol 612 MG/ML 100 ML Bottle IVPUSH ONE (07:55)
[2018-11-19] MEDS ORDERED: Diatrizoate Meglumine/Diatrizoate Sodium 37% 120 ML Bottle PO ONE (07:55)
--- NOTE | 2018-11-19 08:52 | EDM.PDOC ---
ED HPI GENERAL MEDICAL PROBLEM - General Chief Complaint: Gastrointestinal Problem Stated Complaint: VOMITING/ACID REFLUX Time Seen by Provider: 11/19/18 06:55 Source of Information: Reports: Patient History Limitations: Reports: No Limitations - History of Present Illness INITIAL COMMENTS - FREE TEXT/NARRATIVE: The patient presents with nausea, vomiting, diarrhea, and abdominal pain. This started about 3 weeks ago. She was diagnosed with ovarian cancer in May and she had surgery in [place] to remove the tumor. She did not need chemo. She denies fever, chills, cough, congestion or runny nose. She has no chest pain or shortness of breath. She ran out of zofran and she feels like she is dehydrated. Onset: Gradual Duration: Week(s): (3) Location: Reports: Abdomen Quality: Reports: Sharp Severity: Moderate Improves with: Reports: None Worsens with: Reports: None Associated Symptoms: Reports: Nausea/Vomiting. Denies: Chest Pain, Cough, Fever /Chills, Headaches, Shortness of Breath - Related Data Allergies Allergy/AdvReac Type Severity Reaction Status Date / Time No Known Allergies Allergy Verified 11/19/18 05:54 Home Meds: Home Meds Albuterol Sulfate 1 puff INH ASDIRECTED PRN 11/18/13 [History] Venlafaxine [Effexor] 150 mg PO DAILY 11/18/13 [History] Albuterol/Ipratropium [DuoNeb 3.0-0.5 MG/3 ML] 3 ml INH TID 10/18/15 [History] Budesonide [Pulmicort] 1 dose INH BID 10/18/15 [History] Cyanocobalamin (Vitamin B-12) [Vitamin B-12] 1,000 mcg INJECT Q14D 10/18/15 [ History] Denosumab [Prolia] 60 mg SUBCUT ASDIRECTED 10/18/15 [History] Olopatadine [Patanol 0.1% Ophth Soln] 1 drop EYEBOTH BID PRN 10/18/15 [History] guaiFENesin [Mucinex] 600 mg PO DAILY PRN 10/18/15 [History] Dexamethasone/Tobramycin [Tobradex Ophth Susp] 1 drop EYEBOTH TID 11/15/17 [ History] Ferrous Sulfate [Iron] 1 tab PO DAILY 11/15/17 [History] Fluticasone Propionate [Flonase] 1 - 2 spray NASBOTH DAILY 11/15/17 [History] Fluticasone/Vilanterol [Breo Ellipta 200-25 Mcg INH] 1 puff INH DAILY 11/15/17 [ History] Latanoprost 1 drop EYEBOTH DAILY 11/15/17 [History] Loteprednol Etabonate [Alrex] 1 drop EYEBOTH TID 11/15/17 [History] Melatonin 5 mg PO BEDTIME 11/15/17 [History] Ondansetron [Ondansetron ODT] 4 mg PO Q4H PRN 11/15/17 [History] Rosuvastatin Calcium 5 mg PO DAILY 11/15/17 [History] busPIRone [Buspar] 10 mg PO TID 11/15/17 [History] hydrOXYzine pamoate [Vistaril] 25 mg PO TID PRN 11/15/17 [History] Nitrofurantoin Monohyd/M-Cryst [Macrobid 100 mg Capsule] 100 mg PO Q12H #14 capsule 09/03/18 [Rx] Potassium Chloride [Klor-Con M20] 20 meq PO Q8H #6 tab.er.prt 09/03/18 [Rx] predniSONE [Prednisone] 20 mg PO DAILY #10 tablet 09/19/18 [Rx] Doxycycline [Vibramycin] 100 mg PO BID #20 cap 09/30/18 [Rx] Sucralfate [Carafate] 1 gm PO Q6H #120 tablet 10/24/18 [Rx] Past Medical History HEENT History: Reports: Allergic Rhinitis, Glaucoma, Sinusitis Cardiovascular History: Reports: Hypertension Respiratory History: Reports: Asthma, COPD Gastrointestinal History: Reports: Colon Polyp, Gastritis, GERD, Other (See Below) Other Gastrointestinal History: esophagitis, duodenitis, diverticulosis Genitourinary History: Reports: None STITCHER AROUND History: Reports: Other (See Below) Other STITCHER AROUND History: diffuse cystic mastopathy, breast surgery Musculoskeletal History: Reports: Osteoporosis Neurological History: Reports: None Psychiatric History: Reports: Anxiety, Depression Endocrine/Metabolic History: Reports: Osteoporosis Hematologic History: Reports: Anemia, Other (See Below) Other Hematologic History: pernicious anemia Immunologic History: Reports: None Oncologic (Cancer) History: Reports: Ovarian Dermatologic History: Reports: None - Past Surgical History Head Surgeries/Procedures: Reports: None HEENT Surgical History: Reports: Adenoidectomy, Cataract Surgery, Laser Surgery , Oral Surgery, Tonsillectomy Respiratory Surgical History: Reports: None GI Surgical History: Reports: Colonoscopy, EGD, Polypectomy Female Surgical History: Reports: Breast Biopsy Endocrine Surgical History: Reports: None Neurological Surgical History: Reports: None Musculoskeletal Surgical History: Reports: None Oncologic Surgical History: Reports: Biopsy of Breast Dermatological Surgical History: Reports: None Social & Family History - Family History Family Medical History: Noncontributory - Tobacco Use Smoking Status *Q: Former Smoker Used Tobacco, but Quit: Yes Month/Year Tobacco Last Used: may - Caffeine Use Caffeine Use: Reports: Coffee - Living Situation & Occupation Living situation: Reports: ED ROS GENERAL - Review of Systems Review Of Systems: See Below Constitutional: Reports: No Symptoms HEENT: Reports: No Symptoms Respiratory: Reports: No Symptoms Cardiovascular: Reports: No Symptoms Endocrine: Reports: No Symptoms GI/Abdominal: Reports: Abdominal Pain, Diarrhea, Nausea, Vomiting : Reports: No Symptoms ED EXAM, GI/ABD - Physical Exam Exam: See Below Exam Limited By: No Limitations General Appearance: Alert, No Apparent Distress Ears: Normal External Exam Nose: Normal Inspection Throat/Mouth: Other (Dry mucus membranes) Head: Atraumatic, Normocephalic Neck: Normal Inspection Respiratory/Chest: No Respiratory Distress, Lungs Clear, Normal Breath Sounds Cardiovascular: Regular Rate, Rhythm, No Edema, No Murmur GI/Abdominal Exam: Soft, No Organomegaly, No Mass, Tender (Mild tenderness to the left abdomen) Course - Vital Signs Last Recorded V/S: Last Vital Signs Temp 98.0 F 11/19/18 05:51 Pulse 65 11/19/18 05:51 Resp 16 11/19/18 05:51 BP 103/71 11/19/18 05:51 Pulse Ox 97 11/19/18 05:51 - Orders/Labs/Meds Orders: Active Orders 24 hr Category Date Time Status Peripheral IV Care [RC] . DIRECTED Care 11/19/18 07:06 Active UA W/MICROSCOPIC [URIN] Stat Lab 11/19/18 07:06 Ordered Sodium Chloride 0.9% [Saline Flush] Med 11/19/18 07:06 Active 10 ml FLUSH ASDIRECTED PRN ED Antiemetic Medication Reflex [OM.PC] Stat Oth 11/19/18 07:06 Ordered Peripheral IV Insertion Adult [OM.PC] Stat Oth 11/19/18 07:06 Ordered Medication Orders Sodium Chloride (Saline Flush) 10 ml FLUSH ASDIRECTED PRN PRN Reason: Keep Vein Open Last Admin: 11/19/18 07:25 Dose: 10 ml Labs: Laboratory Tests 11/19/18 11/19/18 Range/Units 07:45 07:45 WBC 9.24 (3.98-10.04) K/mm3 RBC 3.77 L (3.98-5.22) M/mm3 Hgb 11.5 (11.2-15.7) gm/L Hct 34.6 (34.1-44.9) % MCV 91.8 D (79.4-94.8) fl MCH 30.5 (25.6-32.2) pg MCHC 33.2 (32.2-35.5) g/dl RDW Std Deviation 53.3 H (36.4-46.3) fL Plt Count 296 (182-369) K/mm3 MPV 9.7 (9.4-12.3) fl Neut % (Auto) 80.3 H (34.0-71.1) % Lymph % (Auto) 9.8 L (19.3-51.7) % [place] % (Auto) 9.7 (4.7-12.5) % Eos % (Auto) 0 L (0.7-5.8) Baso % (Auto) 0.1 (0.1-1.2) % Neut # (Auto) 7.41 H (1.56-6.13) K/mm3 Lymph # (Auto) 0.91 L (1.18-3.74) K/mm3 [place] # (Auto) 0.90 H (0.24-0.36) K/mm3 Eos # (Auto) 0.00 L (0.04-0.36) K/mm3 Baso # (Auto) 0.01 (0.01-0.08) K/mm3 Manual Slide Review Abnormal smear Sodium 144 (136-145) mEq/L Potassium 2.3 L* (3.5-5.1) mEq/L Chloride 106 (98-107) mEq/L Carbon Dioxide 29 (21-32) mEq/L Anion Gap 11.3 (5-15) BUN 29 H (7-18) mg/dL Creatinine 1.6 H (0.55-1.02) mg/dL Est Cr Clr Drug Dosing 32.33 mL/min Estimated GFR (MDRD) 32 (>60) mL/min BUN/Creatinine Ratio 18.1 H (14-18) Glucose 103 (83-115) mg/dL Calcium 7.1 L D (8.5-10.1) mg/dL Total Bilirubin 1.0 (0.2-1.0) mg/dL AST 12 L (15-37) U/L ALT 15 (14-59) U/L Alkaline Phosphatase 46 (46-116) U/L Total Protein 5.6 L (6.4-8.2) g/dl Albumin 2.3 L (3.4-5.0) g/dl Globulin 3.3 gm/dL Albumin/Globulin Ratio 0.7 L (1-2) Lipase 63 L (73-393) U/L Meds: Medications Generic Name Dose Route Start Last Admin Trade Name Freq PRN Reason Stop Dose Admin Sodium Chloride 10 ml 11/19/18 07:06 11/19/18 07:25 Saline Flush FLUSH 10 ml ASDIRECTED PRN Administration Keep Vein Open Discontinued Medications Generic Name Dose Route Start Last Admin Trade Name Freq PRN Reason Stop Dose Admin Diatrizoate Meglum/Diatrizoate Sod 90 ml 11/19/18 07:55 11/19/18 09:21 Gastrografin 37% PO 11/19/18 07:56 90 ml ONETIME ONE Administration Hydromorphone HCl 0.5 mg 11/19/18 07:07 11/19/18 07:24 Dilaudid IVPUSH 11/19/18 07:08 0.5 mg ONETIME ONE Administration Sodium Chloride 1,000 mls @ 1,000 mls/hr 11/19/18 07:06 11/19/18 07:24 Normal Saline IV 11/19/18 08:05 1,000 mls/hr .BOLUS STA Administration Potassium Chloride 10 meq/ 100 mls @ 100 mls/hr 11/19/18 09:45 11/19/18 10:21 Premix IV 11/19/18 10:44 100 mls/hr ONETIME ONE Administration Sodium Chloride Confirm 11/19/18 10:17 11/19/18 10:32 Normal Saline Administered 11/19/18 10:18 Not Given Dose 1,000 mls @ as directed .ROUTE .STK-MED ONE Sodium Chloride 1,000 mls @ 1,000 mls/hr 11/19/18 12:54 11/19/18 13:01 Normal Saline IV 11/19/18 13:53 1,000 mls/hr ONETIME ONE Administration Iopamidol 100 ml 11/19/18 07:55 Isovue-300 (61%) IVPUSH 11/19/18 07:56 ONETIME ONE Ondansetron HCl 4 mg 11/19/18 07:06 11/19/18 07:24 Zofran IVPUSH 11/19/18 07:07 4 mg ONETIME ONE Administration Sodium Chloride 10 ml 11/19/18 07:55 11/19/18 10:21 Saline Flush FLUSH 11/19/18 07:56 10 ml ONETIME ONE Administration - Re-Assessments/Exams Free Text/Narrative Re-Assessment/Exam: 11/19/18 08:52 I ordered an IV NS 1L bolus, zofran 4mg IV, dilaudid 0.5mg IV, labs, UA and a CT of her abdomen and pelvis. 11/19/18 12:11 Her CBC is negative. Her K is low at 2.3. I have ordered IV potassium. Her creatinine is elevated at 1.6. Her calcium is low at 7.1. Her lipase is low. Her CT shows small amount of ascities around the liver and spleen which is an interval change from previous exam. Poor opacification of bowel. This limits evaluation for subtle mesenteric metastatic disease. 3.1 cm cystic area within the lower pelvis. Uncertain if this represents metastatic lesion or other benign cyst. Increased gas within the colon. Findings most likely represent mild colonic ileus. Other findings believed to be incidental. 11/19/18 12:42 11/19/18 13:54 I could not get a UA. My nurse even cathed her. I ordered more fluids. The patient did have a stent placed in her ureter in [place] but that was removed and there was no sign of obstruction on the CT. I feel she will need to be admitted. I called Dr Hartley and he agreed to the admission. Departure - Departure Time of Disposition: 14:00 Disposition: Admitted As Inpatient 68 Condition: Fair Clinical Impression: Dehydration, Hypokalemia, Pelvic cyst, Ileus, Renal insufficiency Nausea and vomiting Qualifiers: Vomiting type: unspecified Vomiting Intractability: non-intractable Qualified Code(s): R11.2 - Nausea with vomiting, unspecified - Discharge Information Referrals: Peter Banks MD [Primary Care Provider] - Forms: ED Department Discharge - My Orders Last 24 Hours: My Active Orders 11/19/18 07:06 Peripheral IV Care [RC] . DIRECTED UA W/MICROSCOPIC [URIN] Stat Sodium Chloride 0.9% [Saline Flush] 10 ml FLUSH ASDIRECTED PRN ED Antiemetic Medication Reflex [OM.PC] Stat Peripheral IV Insertion Adult [OM.PC] Stat - Assessment/Plan Last 24 Hours: My Active Orders 11/19/18 07:06 Peripheral IV Care [RC] . DIRECTED UA W/MICROSCOPIC [URIN] Stat Sodium Chloride 0.9% [Saline Flush] 10 ml FLUSH ASDIRECTED PRN ED Antiemetic Medication Reflex [OM.PC] Stat Peripheral IV Insertion Adult [OM.PC] Stat
[2018-11-19] MEDS ORDERED: Potassium Chloride 10 MEQ in Premix Bag 1 BAG IV ONE (09:45)
[2018-11-19] MEDS ORDERED: Sodium Chloride 0.9% 1,000 ML ONE (10:17)
--- NOTE | 2018-11-19 10:43 | CT ---
CT abdomen and pelvis Technique: Multiple axial sections were obtained from above the dome of the diaphragm inferiorly through the pubic symphysis. Intravenous contrast was not utilized. Small amount of oral contrast is seen within the stomach and within a portion of proximal small bowel. Comparison: Previous CT abdomen and pelvis exam of 09/12/18. Findings: Small amount of contrast is seen within the distal esophagus compatible with reflux. Visualized lung bases show nothing acute. Small hiatal hernia is noted. Liver shows no focal parenchymal abnormality. Spleen appears within normal limits. Ascites is seen around the spleen and liver which is an interval change from previous exam. No discrete adrenal mass is seen. Right kidney shows hydronephrosis with dilated collecting system and mildly dilated ureter. Etiology not seen but finding is stable from previous exam. Left kidney shows no hydronephrosis. Aorta shows atherosclerotic calcification which continues into the iliac vessels without aneurysm. No retroperitoneal adenopathy is seen. Pancreas shows no discrete abnormality. Cystic area is seen within the posterior pelvis between the bladder and rectum. This finding measures 3.1 cm in size and uncertain as to whether this represents metastatic lesion or other etiology. Evaluation for omental metastasis is difficult without good bowel opacification and intravenous contrast. No discrete adenopathy is appreciated. Bone window settings were reviewed which show scattered degenerative change within the spine. Slightly gas filled and dilated colon is seen. Stool is noted within the left colon and sigmoid colon. Findings most likely represent an ileus. Appendix not definitely visualized. Impression: 1. Small amount of ascites around the liver and spleen which is an interval change from previous exam. 2. Poor opacification of bowel. This limits evaluation for subtle mesenteric metastatic disease. 3. 3.1 cm cystic area within the lower pelvis as described above. Uncertain if this represents metastatic lesion or other benign cyst. 4. Increased gas within the colon. Findings most likely represent mild colonic ileus. 5. Other findings believed to be incidental as described above. Diagnostic code #9
[2018-11-19] MEDS ORDERED: Sodium Chloride 0.9% 1,000 ML IV ONE (12:54)
--- NOTE | 2018-11-19 15:07 | PCM.HP.2 ---
H&P History of Present Illness - General Date of Service: 11/19/18 Admit Problem/Dx: Admission Diagnosis/Problem Admission Diagnosis/Problem Ileus Source of Information: Patient, Family, Provider, RN Notes Reviewed, Significant Other History Limitations: Reports: Physical Impairment - History of Present Illness Initial Comments - Free Text/Narative: This is a 73 yo elderly white female with past medical hx/o AR, Glaucoma, Asthma , COPD, Gastritis, GERD, PUD, CKD Stage 3, Diverticulosis, Hx/o Diffuse Cystic Mastopathy, Osteoporosis, Anemia, Ovarian CA, Anxiety, Depression and Malnutrition who comes in with complaints of abdominal pain associated with nausea,vomiting and diarrhea that started 3 weeks ago. She having unusual diet or drink. No travel outside the country. However she was recently diagnosed with ovarian cancer s/p tumor resection in [place]. She is not on chemotherapy. She state she ran out of her zofran and feels like she is dehydrated. She intermittently constipated. Her last bowel movement was yesterday. Her initial work up in ED shows a fairly remarkable CBC. Her chemistry is significant for K of 2.3, BUN of 29, Cr fo 1.6, Ca of 7.1, AST of 12, Total Protein of 5.6, and Albumin of 2.3. Patient is primarily being admitted for management of colonic ileus and electrolytes abnormality. - Related Data Allergies/Adverse Reactions: Allergies Allergy/AdvReac Type Severity Reaction Status Date / Time No Known Allergies Allergy Verified 11/19/18 05:54 Home Medications: Home Meds Albuterol Sulfate 1 puff INH ASDIRECTED PRN 11/18/13 [History] Albuterol/Ipratropium [DuoNeb 3.0-0.5 MG/3 ML] 3 ml INH TID 10/18/15 [History] Budesonide [Pulmicort] 1 dose INH BID 10/18/15 [History] Cyanocobalamin (Vitamin B-12) [Vitamin B-12] 1,000 mcg INJECT Q14D 10/18/15 [ History] Denosumab [Prolia] 60 mg SUBCUT ASDIRECTED 10/18/15 [History] Ferrous Sulfate [Iron] 1 tab PO DAILY 11/15/17 [History] Fluticasone Propionate [Flonase] 1 - 2 spray NASBOTH DAILY 11/15/17 [History] Fluticasone/Vilanterol [Breo Ellipta 200-25 Mcg INH] 1 puff INH DAILY 11/15/17 [ History] Latanoprost 1 drop EYEBOTH DAILY 11/15/17 [History] Ondansetron [Ondansetron ODT] 4 mg PO Q4H PRN 11/15/17 [History] Sucralfate [Carafate] 1 gm PO QIDACANDBED 11/19/18 [History] Past Medical History HEENT History: Reports: Allergic Rhinitis, Glaucoma, Sinusitis Cardiovascular History: Reports: Hypertension Respiratory History: Reports: Asthma, COPD Gastrointestinal History: Reports: Colon Polyp, Gastritis, GERD, Other (See Below) Other Gastrointestinal History: esophagitis, duodenitis, diverticulosis Genitourinary History: Reports: None [employer] ASSESSOR History: Reports: Other (See Below) Other OB/BYN History: diffuse cystic mastopathy, breast surgery Musculoskeletal History: Reports: Osteoporosis Neurological History: Reports: None Psychiatric History: Reports: Anxiety, Depression Endocrine/Metabolic History: Reports: Osteoporosis Hematologic History: Reports: Anemia, Other (See Below) Other Hematologic History: pernicious anemia Immunologic History: Reports: None Oncologic (Cancer) History: Reports: Ovarian Dermatologic History: Reports: None - Past Surgical History Head Surgeries/Procedures: Reports: None HEENT Surgical History: Reports: Adenoidectomy, Cataract Surgery, Laser Surgery , Oral Surgery, Tonsillectomy Respiratory Surgical History: Reports: None GI Surgical History: Reports: Colonoscopy, EGD, Polypectomy Female Surgical History: Reports: Breast Biopsy Endocrine Surgical History: Reports: None Neurological Surgical History: Reports: None Musculoskeletal Surgical History: Reports: None Oncologic Surgical History: Reports: Biopsy of Breast Dermatological Surgical History: Reports: None Social & Family History - Family History Family Medical History: Noncontributory - Tobacco Use Smoking Status *Q: Former Smoker Used Tobacco, but Quit: Yes Month/Year Tobacco Last Used: may - Caffeine Use Caffeine Use: Reports: Coffee - Living Situation & Occupation Living situation: Reports: H&P Review of Systems - Review of Systems: Review Of Systems: ROS reveals no pertinent complaints other than HPI. Exam - Exam Exam: See Below - Vital Signs Vital Signs: Last Vital Signs Temp 36.7 C 11/19/18 05:51 Pulse 65 11/19/18 05:51 Resp 16 11/19/18 05:51 BP 103/71 11/19/18 05:51 Pulse Ox 97 11/19/18 05:51 Weight: 63.503 kg - Exam General: Alert, Oriented, Cooperative, Mild Distress HEENT: Conjunctiva Clear, EACs Clear, EOMI, Hearing Intact, Mucosa Moist & Dotsero , Nares Patent, Normal Nasal Septum, Posterior Pharynx Clear, Pupils Equal, Pupils Reactive Neck: Supple, Trachea Midline, Other (port-a-cath on right upper thorax) Lungs: Normal Respiratory Effort, Decreased Breath Sounds Cardiovascular: Regular Rate, Regular Rhythm GI/Abdominal Exam: Normal Bowel Sounds, Soft, No Organomegaly, No Distention, No Abnormal Bruit, Tender (mid lower abdomen). No: Guarding, Rigid, Rebound (Female) Exam: Deferred Rectal (Female) Exam: Deferred Back Exam: Normal Inspection, Decreased Range of Motion Extremities: Non-Tender, No Pedal Edema, Normal Capillary Refill, Other (severe muscle atropy and wasting) Peripheral Pulses: 2+: Posterior Tibial (L), Posterior Tibial (R), Dorsalis Pedis (L), Dorsalis Pedis (R) Skin: Warm, Dry, Intact, Other (dry and flaky skin) Neuro Extensive - Mental Status: Oriented x3, Normal Cognition, Memory Intact Neuro Extensive - Motor, Sensory, Reflexes: CN II-XII Intact (limited due to generazlied weakness), Abnormal Gait Psychiatric: Alert, Normal Affect, Normal Mood - Patient Data Lab Results Last 24 hrs: Laboratory Results - last 24 hr 11/19/18 11/19/18 Range/Units 07:45 07:45 WBC 9.24 (3.98-10.04) K/mm3 RBC 3.77 L (3.98-5.22) M/mm3 Hgb 11.5 (11.2-15.7) gm/L Hct 34.6 (34.1-44.9) % MCV 91.8 D (79.4-94.8) fl MCH 30.5 (25.6-32.2) pg MCHC 33.2 (32.2-35.5) g/dl RDW Std Deviation 53.3 H (36.4-46.3) fL Plt Count 296 (182-369) K/mm3 MPV 9.7 (9.4-12.3) fl Neut % (Auto) 80.3 H (34.0-71.1) % Lymph % (Auto) 9.8 L (19.3-51.7) % [place] % (Auto) 9.7 (4.7-12.5) % Eos % (Auto) 0 L (0.7-5.8) Baso % (Auto) 0.1 (0.1-1.2) % Neut # (Auto) 7.41 H (1.56-6.13) K/mm3 Lymph # (Auto) 0.91 L (1.18-3.74) K/mm3 [place] # (Auto) 0.90 H (0.24-0.36) K/mm3 Eos # (Auto) 0.00 L (0.04-0.36) K/mm3 Baso # (Auto) 0.01 (0.01-0.08) K/mm3 Manual Slide Review Abnormal smear Sodium 144 (136-145) mEq/L Potassium 2.3 L* (3.5-5.1) mEq/L Chloride 106 (98-107) mEq/L Carbon Dioxide 29 (21-32) mEq/L Anion Gap 11.3 (5-15) BUN 29 H (7-18) mg/dL Creatinine 1.6 H (0.55-1.02) mg/dL Est Cr Clr Drug Dosing 32.33 mL/min Estimated GFR (MDRD) 32 (>60) mL/min BUN/Creatinine Ratio 18.1 H (14-18) Glucose 103 (83-115) mg/dL Calcium 7.1 L D (8.5-10.1) mg/dL Total Bilirubin 1.0 (0.2-1.0) mg/dL AST 12 L (15-37) U/L ALT 15 (14-59) U/L Alkaline Phosphatase 46 (46-116) U/L Total Protein 5.6 L (6.4-8.2) g/dl Albumin 2.3 L (3.4-5.0) g/dl Globulin 3.3 gm/dL Albumin/Globulin Ratio 0.7 L (1-2) Lipase 63 L (73-393) U/L Result Diagrams: 11/20/18 06:15 11/20/18 16:07 Problem List Initiated/Reviewed/Updated: Yes Orders Last 24hrs: Active Orders 24 hr Category Date Time Status Admission Status [Patient Status] [ADT] Routine ADT 11/19/18 13:56 Active Peripheral IV Care [RC] . DIRECTED Care 11/19/18 07:06 Active UA W/MICROSCOPIC [URIN] Stat Lab 11/19/18 07:06 Ordered Sodium Chloride 0.9% [Saline Flush] Med 11/19/18 07:06 Active 10 ml FLUSH ASDIRECTED PRN ED Antiemetic Medication Reflex [OM.PC] Stat Oth 11/19/18 07:06 Ordered Peripheral IV Insertion Adult [OM.PC] Stat Oth 11/19/18 07:06 Ordered Medication Orders Sodium Chloride (Saline Flush) 10 ml FLUSH ASDIRECTED PRN PRN Reason: Keep Vein Open Last Admin: 11/19/18 07:25 Dose: 10 ml Assessment/Plan Comment:: Assessment: Acute: Ileus - Has nausea, vomiting and abdominal pain - CT scan shows mild colonic ileus - Cannot r/o metastatic pelvic pain - Supportive Care, IV Hydration and PRN Anti-emesis Hypokalemia/Hypomagnesemia - K of 2.3; Mg of 1.5 - 2/2 GI Loss - Replete PO and IV potassium Hypocalcemia - Ca of 7.1 with corrected level of - 2/2 GI loss and poor intake - Replete and monitor with meals once she is asymptomatic Hypoalbuminemia - Albumin of 2.3 - 2/2 Protein wasting - Dietary consult for weight management Dehydration - 2/2 poor intake - She is clinically dry - IV fluids and monitor fo urine output Malnutrition - BMI of 17.5 - Dietary consult for weight management Chronic: AR, Glaucoma, Asthma, COPD, Gastritis, GERD, PUD, CKD Stage 3, Diverticulosis, Hx/o Diffuse Cystic Mastopathy, Osteoporosis, Anemia, Ovarian CA , Anxiety, Depression and Malnutrition Plan: Admit to [facility] with Tele Routine AM Labs Resume Home Meds DVT/Stroke Prophylaxis Dietary consult for weight management RT to assess and treat PT/OT to assess and treat SW/CM for d/c planning Code status: full Additional orders as above Prognosis guarded-good
[2018-11-19] MEDS ORDERED: Bisacodyl 5 MG Tab PO PRN (16:03)
[2018-11-19] MEDS ORDERED: Acetaminophen/HYDROcodone 325-5 MG Tab PO PRN (16:03)
[2018-11-19] MEDS ORDERED: Acetaminophen 325 MG Tab PO PRN (16:03)
[2018-11-19] MEDS ORDERED: Albuterol/Ipratropium 3.0-0.5 MG/3 ML Neb Soln NEB PRN (16:03)
[2018-11-19] MEDS ORDERED: Docusate Sodium 100 MG Cap PO PRN (16:03)
[2018-11-19] MEDS ORDERED: Zolpidem 5 MG Tab PO PRN (16:03)
[2018-11-19] MEDS: Potassium Chloride 10 MEQ in Premix Bag 1 BAG IV SCH ×5 (16:40→23:38)
[2018-11-19] MEDS: Ondansetron 4 MG/2 ML SDV IV PRN (16:53)
[2018-11-19] MEDS ORDERED: Sodium Chloride 0.9% 1,000 ML IV SCH (17:00)
[2018-11-19] MEDS: Metoclopramide 10 MG/2 ML SDV IVPUSH PRN (17:24)
[2018-11-19] MEDS: Scopolamine 1.5 MG Transdermal Patch TRDERM PRN (17:24)
[2018-11-19] MEDS: LORazepam 2 MG/ML SDV IV PRN (17:24)
[2018-11-19] MEDS ORDERED: Lactated Ringers 1,000 ML IV ONE (20:10)
[2018-11-19] MEDS ORDERED: Metoprolol Tartrate 5 MG/5 ML SDV IVPUSH PRN (20:34)
[2018-11-19] MEDS ORDERED: Albuterol 0.021% 0.63 MG/3 ML Neb Soln INH PRN (20:34)
[2018-11-19] MEDS ORDERED: Ondansetron 4 MG Tab.DIS PO PRN (20:34)
[2018-11-19] MEDS ORDERED: Cyanocobalamin (Vitamin B12) 1,000 MCG/ML SDV IM SCH (20:45)
[2018-11-19] MEDS ORDERED: Denosumab 60 MG/1 ML Syringe SUBCUT SCH (20:45)
[2018-11-19] MEDS ORDERED: Magnesium Sulfate/Water 2 GM in Premix Bag 1 BAG IV ONE (21:03)
[2018-11-19] MEDS: Budesonide 0.5 MG/2 ML Neb Susp INH SCH (21:41)
[2018-11-19] MEDS: Albuterol/Ipratropium 3.0-0.5 MG/3 ML Neb Soln INH SCH (21:42)
[2018-11-19] MEDS: Lactated Ringers 1,000 ML IV SCH (21:58)
[2018-11-19] MEDS: Sucralfate 1 GM Tab PO SCH (22:03)
[2018-11-19] MEDS: Potassium Chloride 20 MEQ Tab.ER PO ONE (22:03)
[2018-11-20] MEDS: Potassium Chloride 10 MEQ in Premix Bag 1 BAG IV SCH ×11 (00:49→18:38)
[2018-11-20] MEDS: Lactated Ringers 1,000 ML IV SCH (04:54)
[2018-11-20] MEDS: Metoclopramide 10 MG/2 ML SDV IVPUSH PRN (04:56)
[2018-11-20] MEDS: Budesonide 0.5 MG/2 ML Neb Susp INH SCH ×2 (05:16→20:45)
[2018-11-20] MEDS: Albuterol/Ipratropium 3.0-0.5 MG/3 ML Neb Soln INH SCH ×3 (05:17→20:45)
[2018-11-20] MEDS ORDERED: Cyanocobalamin (Vitamin B12) 1,000 MCG/ML SDV IM SCH (08:00)
--- NOTE | 2018-11-20 08:03 | PCM.PN ---
- General Info Date of Service: 11/20/18 Admission Dx/Problem (Free Text): Admission Diagnosis/Problem Admission Diagnosis/Problem Ileus Subjective Update: In to see Shazia. She is quite shaky and states she feels worse today. She did have a small BM today. Her glucose was a bit low and D50 was given. Will switch her fluids to D5LR. Potassium is up to 2.7 this AM and she was only partially through her K riders. Will re-check potassium now that she has completed riders and order more potassium off of this result. She reports she feels very nervous and was given 0.25 ativan this AM with good response. Will order onetime 0.25 ativan now. We will also schedule her Reglan now to help with the ileus. She reports she has a PET scan on Sunday with Dr. Montes. Magnesium has responded well. UA looks very contaminated so will repeat UA when she urinates. Unfortunately she is unable to tolerate potassium by mouth so will continue IV supplementation. Functional Status: Reports: Pain Controlled, Urinating. Denies: Tolerating Diet (NPO), Ambulating, New Symptoms - Review of Systems General: Reports: Weakness, Fatigue, Malaise. Denies: Fever, Chills HEENT: Reports: No Symptoms. Denies: Headaches Pulmonary: Reports: No Symptoms. Denies: Shortness of Breath, Pleuritic Chest Pain, Cough, Sputum, Wheezing Cardiovascular: Reports: Lightheadedness (Mild ). Denies: Chest Pain, Palpitations, Dyspnea on Exertion Gastrointestinal: Reports: Abdominal Pain (Diffuse ), Constipation (reports she feels like she is constipated), Nausea (currently at baseline). Denies: Diarrhea, Vomiting Genitourinary: Reports: No Symptoms. Denies: Pain Musculoskeletal: Reports: No Symptoms Skin: Reports: No Symptoms. Denies: Cyanosis Neurological: Reports: Difficulty Walking. Denies: Confusion, Numbness, Seizure , Change in Speech, Gait Disturbance Psychiatric: Reports: No Symptoms - Patient Data Vitals - Most Recent: Last Vital Signs Temp 98.1 F 11/20/18 04:12 Pulse 82 11/20/18 04:12 Resp 12 11/20/18 04:12 BP 103/84 11/20/18 04:12 Pulse Ox 98 11/20/18 05:19 Weight - Most Recent: 140 lb I&O - Last 24 Hours: Intake & Output 11/19/18 11/20/18 11/20/18 22:59 06:59 14:59 Intake Total 2666 Balance 2666 Lab Results Last 24 Hours: Laboratory Results - last 24 hr 11/19/18 11/19/18 11/19/18 Range/Units 07:45 07:45 16:15 WBC (3.98-10.04) K/mm3 RBC (3.98-5.22) M/mm3 Hgb (11.2-15.7) gm/L Hct (34.1-44.9) % MCV (79.4-94.8) fl MCH (25.6-32.2) pg MCHC (32.2-35.5) g/dl RDW Std Deviation (36.4-46.3) fL Plt Count (182-369) K/mm3 MPV (9.4-12.3) fl Neut % (Auto) (34.0-71.1) % Lymph % (Auto) (19.3-51.7) % Wells % (Auto) (4.7-12.5) % Eos % (Auto) (0.7-5.8) Baso % (Auto) (0.1-1.2) % Neut # (Auto) (1.56-6.13) K/mm3 Lymph # (Auto) (1.18-3.74) K/mm3 Wells # (Auto) (0.24-0.36) K/mm3 Eos # (Auto) (0.04-0.36) K/mm3 Baso # (Auto) (0.01-0.08) K/mm3 Manual Slide Review Abnormal smear Sodium 144 (136-145) mEq/L Potassium 2.3 L* (3.5-5.1) mEq/L Chloride 106 (98-107) mEq/L Carbon Dioxide 29 (21-32) mEq/L Anion Gap 11.3 (5-15) BUN 29 H (7-18) mg/dL Creatinine 1.6 H (0.55-1.02) mg/dL Est Cr Clr Drug Dosing 32.33 mL/min Estimated GFR (MDRD) 32 (>60) mL/min BUN/Creatinine Ratio 18.1 H (14-18) Glucose 103 (83-115) mg/dL Lactic Acid 1.0 (0.4-2.0) mmol/L Calcium 7.1 L D (8.5-10.1) mg/dL Magnesium (1.8-2.4) mg/dl Total Bilirubin 1.0 (0.2-1.0) mg/dL AST 12 L (15-37) U/L ALT 15 (14-59) U/L Alkaline Phosphatase 46 (46-116) U/L C-Reactive Protein (<1.0) mg/dL Total Protein 5.6 L (6.4-8.2) g/dl Albumin 2.3 L (3.4-5.0) g/dl Globulin 3.3 gm/dL Albumin/Globulin Ratio 0.7 L (1-2) Lipase 63 L (73-393) U/L Urine Color (Yellow) Urine Appearance (Clear) Urine pH (5.0-8.0) Ur Specific [place] (1.005-1.030) Urine Protein (Negative) Urine Glucose (UA) (Negative) Urine Ketones (Negative) Urine Occult Blood (Negative) Urine Nitrite (Negative) Urine Bilirubin (Negative) Urine Urobilinogen (0.2-1.0) Ur Leukocyte Esterase (Negative) Urine RBC (0-5) /hpf Urine WBC (0-5) /hpf Urine WBC Clumps (NOT SEEN) /hpf Ur Epithelial Cells (0-5) /hpf Amorphous Sediment (NOT SEEN) /hpf Urine Bacteria (FEW) /hpf Hyaline Casts (0-5) /lpf Urine Mucus (FEW) /hpf 11/19/18 11/19/18 11/20/18 Range/Units 16:15 20:18 02:09 WBC (3.98-10.04) K/mm3 RBC (3.98-5.22) M/mm3 Hgb (11.2-15.7) gm/L Hct (34.1-44.9) % MCV (79.4-94.8) fl MCH (25.6-32.2) pg MCHC (32.2-35.5) g/dl RDW Std Deviation (36.4-46.3) fL Plt Count (182-369) K/mm3 MPV (9.4-12.3) fl Neut % (Auto) (34.0-71.1) % Lymph % (Auto) (19.3-51.7) % Wells % (Auto) (4.7-12.5) % Eos % (Auto) (0.7-5.8) Baso % (Auto) (0.1-1.2) % Neut # (Auto) (1.56-6.13) K/mm3 Lymph # (Auto) (1.18-3.74) K/mm3 Wells # (Auto) (0.24-0.36) K/mm3 Eos # (Auto) (0.04-0.36) K/mm3 Baso # (Auto) (0.01-0.08) K/mm3 Manual Slide Review Sodium 143 (136-145) mEq/L Potassium 2.3 L* (3.5-5.1) mEq/L Chloride 106 (98-107) mEq/L Carbon Dioxide 22 (21-32) mEq/L Anion Gap 17.3 H (5-15) BUN 27 H (7-18) mg/dL Creatinine 1.4 H (0.55-1.02) mg/dL Est Cr Clr Drug Dosing 30.35 mL/min Estimated GFR (MDRD) 37 (>60) mL/min BUN/Creatinine Ratio 19.3 H (14-18) Glucose 73 L (83-115) mg/dL Lactic Acid (0.4-2.0) mmol/L Calcium 6.4 L (8.5-10.1) mg/dL Magnesium 1.5 L (1.8-2.4) mg/dl Total Bilirubin (0.2-1.0) mg/dL AST (15-37) U/L ALT (14-59) U/L Alkaline Phosphatase (46-116) U/L C-Reactive Protein 3.0 H* (<1.0) mg/dL Total Protein (6.4-8.2) g/dl Albumin (3.4-5.0) g/dl Globulin gm/dL Albumin/Globulin Ratio (1-2) Lipase (73-393) U/L Urine Color Alyssa H (Yellow) Urine Appearance Cloudy H (Clear) Urine pH 6.5 (5.0-8.0) Ur Specific [place] 1.015 (1.005-1.030) Urine Protein 1+ H (Negative) Urine Glucose (UA) Negative (Negative) Urine Ketones 2+ H (Negative) Urine Occult Blood 2+ H (Negative) Urine Nitrite Negative (Negative) Urine Bilirubin 2+ H (Negative) Urine Urobilinogen 1.0 (0.2-1.0) Ur Leukocyte Esterase 2+ H (Negative) Urine RBC 5-10 H (0-5) /hpf Urine WBC 10-20 H (0-5) /hpf Urine WBC Clumps Few (NOT SEEN) /hpf Ur Epithelial Cells 0-5 (0-5) /hpf Amorphous Sediment Moderate H (NOT SEEN) /hpf Urine Bacteria Many H (FEW) /hpf Hyaline Casts 5-10 H (0-5) /lpf Urine Mucus Moderate H (FEW) /hpf 11/20/18 11/20/18 Range/Units 06:15 06:15 WBC 7.93 (3.98-10.04) K/mm3 RBC 3.37 L (3.98-5.22) M/mm3 Hgb 10.3 L (11.2-15.7) gm/L Hct 31.0 L (34.1-44.9) % MCV 92.0 (79.4-94.8) fl MCH 30.6 (25.6-32.2) pg MCHC 33.2 (32.2-35.5) g/dl RDW Std Deviation 53.8 H (36.4-46.3) fL Plt Count 273 (182-369) K/mm3 MPV 10.0 (9.4-12.3) fl Neut % (Auto) 73.4 H (34.0-71.1) % Lymph % (Auto) 16.1 L (19.3-51.7) % Wells % (Auto) 9.7 (4.7-12.5) % Eos % (Auto) 0.3 L (0.7-5.8) Baso % (Auto) 0.1 (0.1-1.2) % Neut # (Auto) 5.82 (1.56-6.13) K/mm3 Lymph # (Auto) 1.28 (1.18-3.74) K/mm3 Wells # (Auto) 0.77 H (0.24-0.36) K/mm3 Eos # (Auto) 0.02 L (0.04-0.36) K/mm3 Baso # (Auto) 0.01 (0.01-0.08) K/mm3 Manual Slide Review Sodium 139 (136-145) mEq/L Potassium 2.7 L (3.5-5.1) mEq/L Chloride 99 (98-107) mEq/L Carbon Dioxide 20 L (21-32) mEq/L Anion Gap 22.7 H (5-15) BUN 22 H (7-18) mg/dL Creatinine 1.2 H (0.55-1.02) mg/dL Est Cr Clr Drug Dosing 43.11 mL/min Estimated GFR (MDRD) 44 (>60) mL/min BUN/Creatinine Ratio 18.3 H (14-18) Glucose 75 L (83-115) mg/dL Lactic Acid (0.4-2.0) mmol/L Calcium 6.7 L (8.5-10.1) mg/dL Magnesium 2.1 (1.8-2.4) mg/dl Total Bilirubin (0.2-1.0) mg/dL AST (15-37) U/L ALT (14-59) U/L Alkaline Phosphatase (46-116) U/L C-Reactive Protein 1.3 H* (<1.0) mg/dL Total Protein (6.4-8.2) g/dl Albumin (3.4-5.0) g/dl Globulin gm/dL Albumin/Globulin Ratio (1-2) Lipase (73-393) U/L Urine Color (Yellow) Urine Appearance (Clear) Urine pH (5.0-8.0) Ur Specific [place] (1.005-1.030) Urine Protein (Negative) Urine Glucose (UA) (Negative) Urine Ketones (Negative) Urine Occult Blood (Negative) Urine Nitrite (Negative) Urine Bilirubin (Negative) Urine Urobilinogen (0.2-1.0) Ur Leukocyte Esterase (Negative) Urine RBC (0-5) /hpf Urine WBC (0-5) /hpf Urine WBC Clumps (NOT SEEN) /hpf Ur Epithelial Cells (0-5) /hpf Amorphous Sediment (NOT SEEN) /hpf Urine Bacteria (FEW) /hpf Hyaline Casts (0-5) /lpf Urine Mucus (FEW) /hpf Med Orders - Current: Current Medications Acetaminophen (Tylenol) 650 mg PO Q4H PRN PRN Reason: Pain (Mild 1-3)/fever Hydrocodone Bitart/Acetaminophen ([place] 325-5 Mg) 1 tab PO Q4H PRN PRN Reason: Pain (moderate 4-6) Albuterol (Proventil Neb Soln) 0.63 mg INH ASDIRECTED PRN PRN Reason: Shortness of Breath Albuterol/Ipratropium (Duoneb 3.0-0.5 Mg/3 Ml) 3 ml NEB Q4H PRN PRN Reason: Shortness Of Breath/wheezing Albuterol/Ipratropium (Duoneb 3.0-0.5 Mg/3 Ml) 3 ml INH TIDRT [facility] Last Admin: 11/20/18 05:17 Dose: 3 ml Bisacodyl (Dulcolax) 5 mg PO DAILY PRN PRN Reason: Constipation Budesonide (Pulmicort) 0.5 mg INH BIDRT [facility] Last Admin: 11/20/18 05:16 Dose: 0.5 mg Cyanocobalamin (Vitamin B12) 1,000 mcg IM Q14D [facility] Docusate Sodium (Colace) 100 mg PO BID PRN PRN Reason: Constipation Ferrous Sulfate (Ferrous Sulfate) 325 mg PO DAILY [facility] Fluticasone Propionate (Flonase) 1 - 2 gm NASBOTH DAILY [facility] Promethazine HCl 6.25 mg/ (Sodium Chloride) 50.25 mls @ 100 mls/hr IV Q6H PRN PRN Reason: Nausea/Vomiting Lactated Ringer's (Ringers, Lactated) 1,000 mls @ 150 mls/hr IV ASDIRECTED [facility] Last Admin: 11/20/18 04:54 Dose: 150 mls/hr Latanoprost (Xalatan 0.005% Ophth Soln) 0 ml EYEBOTH DAILY [facility] Lorazepam (Ativan) 0.25 mg IV Q6H PRN PRN Reason: Anxiety Last Admin: 11/19/18 17:24 Dose: 0.25 mg Metoclopramide HCl (Reglan) 10 mg IVPUSH Q6H PRN PRN Reason: Nausea/Vomiting Last Admin: 11/20/18 04:56 Dose: 10 mg Metoprolol Tartrate (Lopressor) 5 mg IVPUSH Q4H PRN PRN Reason: Tachycardia Miscellaneous Information (Remove Patch) 1 ea TRDERM Q72H [facility] Mometasone Furoate/Formoterol Fumar (Dulera 200-5 Mcg) 2 puff IH DAILY [facility] Ondansetron HCl (Zofran) 4 mg IV Q6H PRN PRN Reason: Nausea/Vomiting Last Admin: 11/19/18 16:53 Dose: 4 mg Ondansetron HCl (Zofran Odt) 4 mg PO Q4H PRN PRN Reason: Nausea Scopolamine (Transderm-Scop) 1.5 mg TRDERM Q72H PRN PRN Reason: Nausea/Vomiting Last Admin: 11/19/18 17:24 Dose: 1.5 mg Senna/Docusate Sodium (Senna Plus) 1 tab PO BID PRN PRN Reason: Constipation Sodium Chloride (Saline Flush) 10 ml FLUSH ASDIRECTED PRN PRN Reason: Keep Vein Open Last Admin: 11/19/18 07:25 Dose: 10 ml Sucralfate (Carafate) 1 gm PO QIDACANDBED [facility] Last Admin: 11/19/18 22:03 Dose: 1 gm Zolpidem Tartrate (Ambien) 5 mg PO BEDTIME PRN PRN Reason: Sleep Discontinued Medications Cyanocobalamin (Vitamin B12) 1,000 mcg IM Q14D [facility] Denosumab (Prolia) 60 mg SUBCUT ASDIRECTED [facility] Diatrizoate Meglum/Diatrizoate Sod (Gastrografin 37%) 90 ml PO ONETIME ONE Stop: 11/19/18 07:56 Last Admin: 11/19/18 09:21 Dose: 90 ml Hydromorphone HCl (Dilaudid) 0.5 mg IVPUSH ONETIME ONE Stop: 11/19/18 07:08 Last Admin: 11/19/18 07:24 Dose: 0.5 mg Sodium Chloride (Normal Saline) 1,000 mls @ 1,000 mls/hr IV .BOLUS STA Stop: 11/19/18 08:05 Last Admin: 11/19/18 07:24 Dose: 1,000 mls/hr Potassium Chloride 10 meq/ (Premix) 100 mls @ 100 mls/hr IV ONETIME ONE Stop: 11/19/18 10:44 Last Admin: 11/19/18 10:21 Dose: 100 mls/hr Sodium Chloride (Normal Saline) Confirm Administered Dose 1,000 mls @ as directed .ROUTE .STK-MED ONE Stop: 11/19/18 10:18 Last Admin: 11/19/18 10:32 Dose: Not Given Sodium Chloride (Normal Saline) 1,000 mls @ 1,000 mls/hr IV ONETIME ONE Stop: 11/19/18 13:53 Last Admin: 11/19/18 13:01 Dose: 1,000 mls/hr Potassium Chloride 10 meq/ (Premix) 100 mls @ 100 mls/hr IV Q1H [facility] Stop: 11/19/18 22:14 Last Admin: 11/20/18 00:49 Dose: 100 mls/hr Sodium Chloride (Normal Saline) 1,000 mls @ 50 mls/hr IV ASDIRECTED [facility] Stop: 11/19/18 23:30 Last Admin: 11/19/18 17:17 Dose: 50 mls/hr Lactated Ringer's (Ringers, Lactated) 1,000 mls @ 999 mls/hr IV .BOLUS ONE Stop: 11/19/18 21:10 Last Admin: 11/19/18 20:21 Dose: 999 mls/hr Magnesium Sulfate 2 gm/ Premix 50 mls @ 25 mls/hr IV ONETIME ONE Stop: 11/19/18 23:02 Last Admin: 11/19/18 22:00 Dose: 25 mls/hr Potassium Chloride 10 meq/ (Premix) 100 mls @ 100 mls/hr IV Q1H [facility] Stop: 11/20/18 03:29 Last Admin: 11/20/18 07:05 Dose: 100 mls/hr Iopamidol (Isovue-300 (61%)) 100 ml IVPUSH ONETIME ONE Stop: 11/19/18 07:56 Last Admin: 11/19/18 15:21 Dose: Not Given Ondansetron HCl (Zofran) 4 mg IVPUSH ONETIME ONE Stop: 11/19/18 07:07 Last Admin: 11/19/18 07:24 Dose: 4 mg Potassium Chloride (Klor-Con M20) 60 meq PO ONETIME ONE Stop: 11/19/18 20:42 Last Admin: 11/19/18 22:03 Dose: 60 meq Sodium Chloride (Saline Flush) 10 ml FLUSH ONETIME ONE Stop: 11/19/18 07:56 Last Admin: 11/19/18 10:21 Dose: 10 ml - Exam Quality Assessment: DVT Prophylaxis General: Alert, Oriented, Cooperative, No Acute Distress, Other (Cachectic) HEENT: Pupils Equal, Pupils Reactive, EOMI, Mucous Membr. Moist/[place] Neck: Supple, Trachea Midline Lungs: Clear to Auscultation, Normal Respiratory Effort, Other (Port in place on right chest ) Cardiovascular: Regular Rate, Regular Rhythm GI/Abdominal Exam: Normal Bowel Sounds, Soft, No Distention, No Abnormal Bruit, Tender (Mild generalized tenderness ) (Female) Exam: Deferred Back Exam: Normal Inspection, Decreased Range of Motion Extremities: Normal Inspection, Normal Range of Motion, Non-Tender, No Pedal Edema, Normal Capillary Refill, Other (Scattered bruising on legs ) Peripheral Pulses: 2+: Radial (L), Radial (R), Dorsalis Pedis (L), Dorsalis Pedis (R) Skin: Warm, Dry, Intact Neurological: No New Focal Deficit Psy/Mental Status: Alert, Anxious - Problem List & Annotations (1) Dehydration SNOMED Code(s): 44594545 Code(s): E86.0 - DEHYDRATION Status: Acute Priority: High Current Visit : Yes (2) Hypokalemia SNOMED Code(s): 60155128 Code(s): E87.6 - HYPOKALEMIA Status: Acute Current Visit: Yes (3) Ileus SNOMED Code(s): 258623316 Code(s): K56.7 - ILEUS, UNSPECIFIED Status: Acute Priority: High Current Visit: Yes (4) Nausea & vomiting SNOMED Code(s): 27961340 Code(s): R11.2 - NAUSEA WITH VOMITING, UNSPECIFIED Status: Acute Priority : High Current Visit: Yes Qualifiers: Vomiting type: unspecified Vomiting Intractability: non-intractable Qualified Code(s): R11.2 - Nausea with vomiting, unspecified (5) Pelvic cyst SNOMED Code(s): 392091577, 092330638 Code(s): XQF1423 - Status: Acute Priority: High Current Visit: Yes (6) Renal insufficiency SNOMED Code(s): 167048688, 895256012 Code(s): N28.9 - DISORDER OF KIDNEY AND URETER, UNSPECIFIED Status: Acute Priority: High Current Visit: Yes (7) Abdominal pain SNOMED Code(s): 24222740 Code(s): R10.9 - UNSPECIFIED ABDOMINAL PAIN Status: Acute Priority: High Current Visit: Yes Qualifiers: Abdominal location: generalized Qualified Code(s): R10.84 - Generalized abdominal pain - Problem List Review Problem List Initiated/Reviewed/Updated: Yes - My Orders Last 24 Hours: My Active Orders 11/20/18 08:02 UA W/MICROSCOPIC [URIN] Routine 11/20/18 16:00 BASIC METABOLIC PANEL,BMP [CHEM] Routine - Plan Plan:: Assessment: Acute: Ileus - Has nausea, vomiting and abdominal pain -> vomiting has resolved, Nausea is chronic and at baseline - CT scan shows mild colonic ileus - Cannot r/o metastatic pelvic pain - Supportive Care, IV Hydration and PRN Anti-emesis - Scheduled Reglan - NPO - D5LR for IV fluids Hypokalemia/Hypomagnesemia - K of 2.3-->2.7-->2.8; Mg of 1.5-->2.1 - 2/2 GI Loss - Replete PO and IV potassium Hypocalcemia - Ca of 7.1--.6.4-->6.7 (no new albumin so will check CMP for corrected calcium) - 2/2 GI loss and poor intake - Replete and monitor with meals once she is asymptomatic Hypoalbuminemia - Albumin of 2.3 - 2/2 Protein wasting - Dietary consult for weight management Dehydration - 2/2 poor intake - She is clinically dry - IV fluids and monitor fo urine output Malnutrition - BMI of 17.5 - Dietary consult for weight management Chronic: AR, Glaucoma, Asthma, COPD, Gastritis, GERD, PUD, CKD Stage 3, Diverticulosis, Hx/o Diffuse Cystic Mastopathy, Osteoporosis, Anemia, Ovarian CA , Anxiety, Depression and Malnutrition Plan: Admit to [facility] with Tele Routine AM Labs Resume Home Meds DVT/Stroke Prophylaxis Dietary consult for weight management RT to assess and treat PT/OT to assess and treat SW/CM for d/c planning Code status: full Additional orders as above Prognosis guarded-good
[2018-11-20] MEDS: LORazepam 2 MG/ML SDV IV PRN ×2 (08:17→15:58)
[2018-11-20] MEDS: Ondansetron 4 MG/2 ML SDV IV PRN ×2 (08:17→15:41)
[2018-11-20] MEDS: Ferrous Sulfate 325 MG Tab PO SCH (08:21)
[2018-11-20] MEDS: Fluticasone Propionate Nasal Spray 16 GM Bottle NASBOTH SCH (08:21)
[2018-11-20] MEDS: Latanoprost 0.005% Ophth Soln 2.5 ML Bottle EYEBOTH SCH (08:21)
[2018-11-20] MEDS: Sucralfate 1 GM Tab PO SCH ×7 (08:22→22:54)
[2018-11-20] MEDS: Formoterol/Mometasone 200-5 MCG 8.8 GM Inhaler IH SCH (08:27)
[2018-11-20] MEDS: Potassium Chloride 20 MEQ Tab.ER PO ONE (08:54)
[2018-11-20] MEDS ORDERED: Formoterol/Mometasone 200-5 MCG 8.8 GM Inhaler IH SCH (09:00)
[2018-11-20] MEDS: Promethazine 6.25 MG in Sodium Chloride 0.9% 50 ML IV PRN (11:25)
[2018-11-20] MEDS ORDERED: 50% Dextrose in Water 50 ML Syringe IVPUSH PRN (11:26)
[2018-11-20] MEDS ORDERED: Dextrose 5%-Lactated Ringers 1,000 ML IV SCH (11:30)
[2018-11-20] MEDS: Dextrose 5%-Lactated Ringers 1,000 ML IV SCH ×2 (11:34→18:40)
[2018-11-20] MEDS ORDERED: LORazepam 2 MG/ML SDV IVPUSH ONE (11:50)
[2018-11-20] MEDS: Metoclopramide 10 MG/2 ML SDV IVPUSH SCH ×2 (12:11→17:32)
[2018-11-20] MEDS: Heparin Sodium 5,000 Units/ML Vial SUBCUT SCH ×2 (13:14→22:20)
[2018-11-20] MEDS ORDERED: diphenhydrAMINE 50 MG/ML SDV IVPUSH ONE (19:00)
[2018-11-20] MEDS ORDERED: diphenhydrAMINE 50 MG/ML SDV ONE (19:07)
[2018-11-21] MEDS: Metoclopramide 10 MG/2 ML SDV IVPUSH SCH ×4 (01:03→17:23)
[2018-11-21] MEDS: Metoprolol Tartrate 25 MG Tab PO SCH ×3 (01:03→09:26)
[2018-11-21] MEDS: Dextrose 5%-Lactated Ringers 1,000 ML IV SCH ×4 (01:04→21:55)
[2018-11-21] MEDS: Formoterol/Mometasone 200-5 MCG 8.8 GM Inhaler IH SCH (05:38)
[2018-11-21] MEDS: Budesonide 0.5 MG/2 ML Neb Susp INH SCH ×2 (05:38→20:45)
[2018-11-21] MEDS: Albuterol/Ipratropium 3.0-0.5 MG/3 ML Neb Soln INH SCH ×3 (05:38→20:45)
[2018-11-21] MEDS: Heparin Sodium 5,000 Units/ML Vial SUBCUT SCH ×3 (06:08→20:17)
[2018-11-21] MEDS: Sucralfate 1 GM Tab PO SCH ×2 (06:11→11:59)
[2018-11-21] MEDS ORDERED: Magnesium Sulfate/Water 2 GM in Premix Bag 1 BAG IV ONE (08:00)
[2018-11-21] MEDS: Potassium Chloride 10 MEQ in Premix Bag 1 BAG IV SCH ×6 (08:12→13:41)
[2018-11-21] MEDS: Fluticasone Propionate Nasal Spray 16 GM Bottle NASBOTH SCH (08:12)
[2018-11-21] MEDS: Latanoprost 0.005% Ophth Soln 2.5 ML Bottle EYEBOTH SCH (08:13)
[2018-11-21] MEDS: LORazepam 2 MG/ML SDV IV PRN (08:37)
[2018-11-21] MEDS: Ferrous Sulfate 325 MG Tab PO SCH (08:45)
[2018-11-21] MEDS: Pantoprazole 40 MG Vial IVPUSH SCH (17:23)
[2018-11-21] MEDS: Ondansetron 4 MG/2 ML SDV IV PRN (18:37)
--- NOTE | 2018-11-21 18:46 | PCM.PN ---
- General Info Date of Service: 11/21/18 Admission Dx/Problem (Free Text): Admission Diagnosis/Problem Admission Diagnosis/Problem Ileus Subjective Update: Follow Up Functional Status: Reports: Pain Controlled, Urinating. Denies: New Symptoms - Review of Systems General: Reports: Weakness, Fatigue, Malaise. Denies: Fever, Chills HEENT: Reports: No Symptoms Pulmonary: Denies: Shortness of Breath Cardiovascular: Denies: Chest Pain, Dyspnea on Exertion, Lightheadedness Gastrointestinal: Reports: Decreased Appetite. Denies: Abdominal Pain, Nausea, Vomiting Genitourinary: Reports: No Symptoms Musculoskeletal: Reports: No Symptoms Skin: Reports: Bruising Neurological: Reports: Difficulty Walking, Weakness, Gait Disturbance. Denies: Confusion Psychiatric: Denies: Depression, Anxiety, Agitation, Hallucinations Systems Review Comment:: No significant overnight or acute issues. She is essentially about the same. Her K and Mg again dropped to low levels. - Patient Data Vitals - Most Recent: Last Vital Signs Temp 36.4 C 11/21/18 08:09 Pulse 74 11/21/18 11:50 Resp 16 11/21/18 11:50 BP 116/80 11/21/18 11:50 Pulse Ox 98 11/21/18 16:11 Weight - Most Recent: 59.148 kg I&O - Last 24 Hours: Intake & Output 11/21/18 11/21/18 11/21/18 06:59 14:59 22:59 Intake Total 1966 Balance 1966 Lab Results Last 24 Hours: Laboratory Results - last 24 hr 11/21/18 11/21/18 11/21/18 Range/Units 06:40 06:40 17:30 WBC 6.79 (3.98-10.04) K/mm3 RBC 3.15 L (3.98-5.22) M/mm3 Hgb 9.8 L (11.2-15.7) gm/L Hct 28.4 L (34.1-44.9) % MCV 90.2 (79.4-94.8) fl MCH 31.1 (25.6-32.2) pg MCHC 34.5 (32.2-35.5) g/dl RDW Std Deviation 51.3 H (36.4-46.3) fL Plt Count 262 (182-369) K/mm3 MPV 9.9 (9.4-12.3) fl Neut % (Auto) 69.2 (34.0-71.1) % Lymph % (Auto) 16.2 L (19.3-51.7) % [place] % (Auto) 13.8 H (4.7-12.5) % Eos % (Auto) 0.4 L (0.7-5.8) Baso % (Auto) 0.1 (0.1-1.2) % Neut # (Auto) 4.69 (1.56-6.13) K/mm3 Lymph # (Auto) 1.10 L (1.18-3.74) K/mm3 [place] # (Auto) 0.94 H (0.24-0.36) K/mm3 Eos # (Auto) 0.03 L (0.04-0.36) K/mm3 Baso # (Auto) 0.01 (0.01-0.08) K/mm3 Sodium 140 142 (136-145) mEq/L Potassium 2.4 L* 2.9 L (3.5-5.1) mEq/L Chloride 107 108 H (98-107) mEq/L Carbon Dioxide 22 24 (21-32) mEq/L Anion Gap 13.4 12.9 (5-15) BUN 12 10 (7-18) mg/dL Creatinine 1.0 1.1 H (0.55-1.02) mg/dL Est Cr Clr Drug Dosing 48.18 43.80 mL/min Estimated GFR (MDRD) 55 49 (>60) mL/min BUN/Creatinine Ratio 12.0 L 9.1 L (14-18) Glucose 132 H 121 H (83-115) mg/dL Calcium 6.8 L 6.6 L (8.5-10.1) mg/dL Magnesium 1.6 L (1.8-2.4) mg/dl C-Reactive Protein 3.4 H* (<1.0) mg/dL 11/21/18 Range/Units 17:30 WBC (3.98-10.04) K/mm3 RBC (3.98-5.22) M/mm3 Hgb (11.2-15.7) gm/L Hct (34.1-44.9) % MCV (79.4-94.8) fl MCH (25.6-32.2) pg MCHC (32.2-35.5) g/dl RDW Std Deviation (36.4-46.3) fL Plt Count (182-369) K/mm3 MPV (9.4-12.3) fl Neut % (Auto) (34.0-71.1) % Lymph % (Auto) (19.3-51.7) % [place] % (Auto) (4.7-12.5) % Eos % (Auto) (0.7-5.8) Baso % (Auto) (0.1-1.2) % Neut # (Auto) (1.56-6.13) K/mm3 Lymph # (Auto) (1.18-3.74) K/mm3 [place] # (Auto) (0.24-0.36) K/mm3 Eos # (Auto) (0.04-0.36) K/mm3 Baso # (Auto) (0.01-0.08) K/mm3 Sodium (136-145) mEq/L Potassium (3.5-5.1) mEq/L Chloride (98-107) mEq/L Carbon Dioxide (21-32) mEq/L Anion Gap (5-15) BUN (7-18) mg/dL Creatinine (0.55-1.02) mg/dL Est Cr Clr Drug Dosing mL/min Estimated GFR (MDRD) (>60) mL/min BUN/Creatinine Ratio (14-18) Glucose (83-115) mg/dL Calcium (8.5-10.1) mg/dL Magnesium 1.9 (1.8-2.4) mg/dl C-Reactive Protein (<1.0) mg/dL Med Orders - Current: Current Medications Acetaminophen (Tylenol) 650 mg PO Q4H PRN PRN Reason: Pain (Mild 1-3)/fever Hydrocodone Bitart/Acetaminophen ([place] 325-5 Mg) 1 tab PO Q4H PRN PRN Reason: Pain (moderate 4-6) Albuterol (Proventil Neb Soln) 0.63 mg INH ASDIRECTED PRN PRN Reason: Shortness of Breath Albuterol/Ipratropium (Duoneb 3.0-0.5 Mg/3 Ml) 3 ml NEB Q4H PRN PRN Reason: Shortness Of Breath/wheezing Albuterol/Ipratropium (Duoneb 3.0-0.5 Mg/3 Ml) 3 ml INH TIDRT [facility] Last Admin: 11/21/18 16:10 Dose: 3 ml Bisacodyl (Dulcolax) 5 mg PO DAILY PRN PRN Reason: Constipation Budesonide (Pulmicort) 0.5 mg INH BIDRT [facility] Last Admin: 11/21/18 05:38 Dose: 0.5 mg Cyanocobalamin (Vitamin B12) 1,000 mcg IM Q14D [facility] Last Admin: 11/20/18 09:11 Dose: Not Given Dextrose/Water (Dextrose 50% In Water) 25 ml IVPUSH ASDIRECTED PRN PRN Reason: hypoglycemia Last Admin: 11/20/18 11:38 Dose: 25 ml Docusate Sodium (Colace) 100 mg PO BID PRN PRN Reason: Constipation Ferrous Sulfate (Ferrous Sulfate) 325 mg PO DAILY [facility] Last Admin: 11/21/18 08:45 Dose: Not Given Fluticasone Propionate (Flonase) 1 - 2 gm NASBOTH DAILY [facility] Last Admin: 11/21/18 08:12 Dose: 1 spray Heparin Sodium (Porcine) (Heparin Sodium) 5,000 units SUBCUT Q8H [facility] Last Admin: 11/21/18 12:09 Dose: 5,000 units Promethazine HCl 6.25 mg/ (Sodium Chloride) 50.25 mls @ 100 mls/hr IV Q6H PRN PRN Reason: Nausea/Vomiting Last Admin: 11/20/18 11:25 Dose: 100 mls/hr Dextrose/Lactated Ringer's (Dextrose 5%-Lactated Ringers) 1,000 mls @ 150 mls/ hr IV ASDIRECTED [facility] Last Admin: 11/21/18 14:14 Dose: 150 mls/hr Latanoprost (Xalatan 0.005% Ophth Soln) 0 ml EYEBOTH DAILY [facility] Last Admin: 11/21/18 08:13 Dose: 1 drop Lorazepam (Ativan) 0.5 mg IV Q6H PRN PRN Reason: Anxiety Last Admin: 11/21/18 08:37 Dose: 0.5 mg Metoclopramide HCl (Reglan) 10 mg IVPUSH Q6H [facility] Last Admin: 11/21/18 17:23 Dose: 10 mg Metoprolol Tartrate (Lopressor) 5 mg IVPUSH Q4H PRN PRN Reason: Tachycardia Last Admin: 11/20/18 22:14 Dose: 5 mg Metoprolol Tartrate (Lopressor) 25 mg PO Q12H [facility] Last Admin: 11/21/18 09:26 Dose: Not Given Miscellaneous Information (Remove Patch) 1 ea TRDERM Q72H [facility] Mometasone Furoate/Formoterol Fumar (Dulera 200-5 Mcg) 2 puff IH DAILY@0600 [facility] Last Admin: 11/21/18 05:38 Dose: 2 puff Ondansetron HCl (Zofran) 4 mg IV Q6H PRN PRN Reason: Nausea/Vomiting Last Admin: 11/21/18 18:37 Dose: 4 mg Ondansetron HCl (Zofran Odt) 4 mg PO Q4H PRN PRN Reason: Nausea Pantoprazole Sodium (Protonix Iv) 40 mg IVPUSH Q12H [facility] Last Admin: 11/21/18 17:23 Dose: 40 mg Scopolamine (Transderm-Scop) 1.5 mg TRDERM Q72H PRN PRN Reason: Nausea/Vomiting Last Admin: 11/19/18 17:24 Dose: 1.5 mg Senna/Docusate Sodium (Senna Plus) 1 tab PO BID PRN PRN Reason: Constipation Sodium Chloride (Saline Flush) 10 ml FLUSH ASDIRECTED PRN PRN Reason: Keep Vein Open Last Admin: 11/19/18 07:25 Dose: 10 ml Zolpidem Tartrate (Ambien) 5 mg PO BEDTIME PRN PRN Reason: Sleep Discontinued Medications Cyanocobalamin (Vitamin B12) 1,000 mcg IM Q14D [facility] Last Admin: 11/20/18 08:21 Dose: Not Given Denosumab (Prolia) 60 mg SUBCUT ASDIRECTED [facility] Diatrizoate Meglum/Diatrizoate Sod (Gastrografin 37%) 90 ml PO ONETIME ONE Stop: 11/19/18 07:56 Last Admin: 11/19/18 09:21 Dose: 90 ml Diphenhydramine HCl (Benadryl) 50 mg IVPUSH ONETIME ONE Stop: 11/20/18 19:01 Last Admin: 11/20/18 19:08 Dose: 50 mg Diphenhydramine HCl (Benadryl) Confirm Administered Dose 50 mg .ROUTE .STK-MED ONE Stop: 11/20/18 19:08 Last Admin: 11/20/18 20:01 Dose: Not Given Hydromorphone HCl (Dilaudid) 0.5 mg IVPUSH ONETIME ONE Stop: 11/19/18 07:08 Last Admin: 11/19/18 07:24 Dose: 0.5 mg Sodium Chloride (Normal Saline) 1,000 mls @ 1,000 mls/hr IV .BOLUS STA Stop: 11/19/18 08:05 Last Admin: 11/19/18 07:24 Dose: 1,000 mls/hr Potassium Chloride 10 meq/ (Premix) 100 mls @ 100 mls/hr IV ONETIME ONE Stop: 11/19/18 10:44 Last Admin: 11/19/18 10:21 Dose: 100 mls/hr Sodium Chloride (Normal Saline) Confirm Administered Dose 1,000 mls @ as directed .ROUTE .[facility]-MED ONE Stop: 11/19/18 10:18 Last Admin: 11/19/18 10:32 Dose: Not Given Sodium Chloride (Normal Saline) 1,000 mls @ 1,000 mls/hr IV ONETIME ONE Stop: 11/19/18 13:53 Last Admin: 11/19/18 13:01 Dose: 1,000 mls/hr Potassium Chloride 10 meq/ (Premix) 100 mls @ 100 mls/hr IV Q1H [facility] Stop: 11/19/18 22:14 Last Admin: 11/20/18 00:49 Dose: 100 mls/hr Sodium Chloride (Normal Saline) 1,000 mls @ 50 mls/hr IV ASDIRECTED [facility] Stop: 11/19/18 23:30 Last Admin: 11/19/18 17:17 Dose: 50 mls/hr Lactated Ringer's (Ringers, Lactated) 1,000 mls @ 999 mls/hr IV .BOLUS ONE Stop: 11/19/18 21:10 Last Admin: 11/19/18 20:21 Dose: 999 mls/hr Lactated Ringer's (Ringers, Lactated) 1,000 mls @ 150 mls/hr IV ASDIRECTED [facility] Last Admin: 11/20/18 04:54 Dose: 150 mls/hr Magnesium Sulfate 2 gm/ Premix 50 mls @ 25 mls/hr IV ONETIME ONE Stop: 11/19/18 23:02 Last Admin: 11/19/18 22:00 Dose: 25 mls/hr Potassium Chloride 10 meq/ (Premix) 100 mls @ 100 mls/hr IV Q1H [facility] Stop: 11/20/18 03:29 Last Admin: 11/20/18 07:05 Dose: 100 mls/hr Dextrose/Lactated Ringer's (Dextrose 5%-Lactated Ringers) 1,000 mls @ 125 mls/ hr IV ASDIRECTED [facility] Potassium Chloride 10 meq/ (Premix) 100 mls @ 100 mls/hr IV Q1H [facility] Stop: 11/20/18 18:59 Last Admin: 11/20/18 18:38 Dose: 100 mls/hr Magnesium Sulfate 2 gm/ Premix 50 mls @ 25 mls/hr IV ONETIME ONE Stop: 11/21/18 09:59 Last Admin: 11/21/18 08:12 Dose: 25 mls/hr Potassium Chloride 10 meq/ (Premix) 100 mls @ 100 mls/hr IV Q1H [facility] Stop: 11/21/18 13:59 Last Admin: 11/21/18 13:41 Dose: 100 mls/hr Iopamidol (Isovue-300 (61%)) 100 ml IVPUSH ONETIME ONE Stop: 11/19/18 07:56 Last Admin: 11/19/18 15:21 Dose: Not Given Lorazepam (Ativan) 0.25 mg IV Q6H PRN PRN Reason: Anxiety Last Admin: 11/20/18 08:17 Dose: 0.25 mg Lorazepam (Ativan) 0.25 mg IVPUSH ONETIME ONE Stop: 11/20/18 11:51 Last Admin: 11/20/18 11:50 Dose: 0.25 mg Metoclopramide HCl (Reglan) 10 mg IVPUSH Q6H PRN PRN Reason: Nausea/Vomiting Last Admin: 11/20/18 04:56 Dose: 10 mg Mometasone Furoate/Formoterol Fumar (Dulera 200-5 Mcg) 2 puff IH DAILY [facility] Ondansetron HCl (Zofran) 4 mg IVPUSH ONETIME ONE Stop: 11/19/18 07:07 Last Admin: 11/19/18 07:24 Dose: 4 mg Potassium Chloride (Klor-Con M20) 60 meq PO ONETIME ONE Stop: 11/19/18 20:42 Last Admin: 11/20/18 08:54 Dose: Not Given Sodium Chloride (Saline Flush) 10 ml FLUSH ONETIME ONE Stop: 11/19/18 07:56 Last Admin: 11/19/18 10:21 Dose: 10 ml Sucralfate (Carafate) 1 gm PO QIDACANDBED [facility] Last Admin: 11/21/18 11:59 Dose: Not Given - Exam General: Alert, Oriented, Cooperative, No Acute Distress, Other (weak and worn out) HEENT: Pupils Equal, Pupils Reactive, EOMI. No: Mucous Membr. Moist/[place] Neck: Supple Lungs: Normal Respiratory Effort, Decreased Breath Sounds Cardiovascular: Regular Rate, Regular Rhythm GI/Abdominal Exam: Normal Bowel Sounds, Soft, Non-Tender, No Organomegaly, No Distention, No Abnormal Bruit, Other (midline abdominal scar) (Female) Exam: Deferred Back Exam: Normal Inspection, Decreased Range of Motion Extremities: Normal Range of Motion, Non-Tender, No Pedal Edema, Normal Capillary Refill, Other (severe atropy and muscle wasting) Peripheral Pulses: 1+: Dorsalis Pedis (L), Dorsalis Pedis (R) Skin: Warm, Dry, Intact, Ecchymosis Neurological: No New Focal Deficit (limite deu to generalzied weakness). No: Normal Gait Psy/Mental Status: Alert, Normal Mood. No: Normal Affect, Labile Mood, Anxious , Agitated, Suicidal Ideation, Homicidal Ideation, Hallucinations, Withdrawal Symptoms - Problem List Review Problem List Initiated/Reviewed/Updated: Yes - My Orders Last 24 Hours: My Active Orders 11/20/18 18:53 EKG 12 Lead [EK] Routine 11/20/18 18:54 EKG Documentation Completion [RC] ASDIRECTED 11/20/18 22:00 Metoprolol Tartrate [Lopressor] 25 mg PO Q12H 11/21/18 09:49 Consult to Speech Language Pathology [NURSE GENERAL DUTY Evaluation and Treatment] [CONS] Routine 11/21/18 17:00 Pantoprazole [ProTONIX IV] 40 mg IVPUSH Q12H 11/22/18 05:11 BASIC METABOLIC PANEL,BMP [CHEM] AM C-REACTIVE PROTEIN [CHEM] AM CBC WITH AUTO DIFF [HEME] AM MAGNESIUM [CHEM] AM 11/22/18 16:15 Remove Patch 1 ea TRAGUSTINM Q72H 11/23/18 05:11 BASIC METABOLIC PANEL,BMP [CHEM] AM C-REACTIVE PROTEIN [CHEM] AM CBC WITH AUTO DIFF [HEME] AM MAGNESIUM [CHEM] AM 11/24/18 05:11 BASIC METABOLIC PANEL,BMP [CHEM] AM C-REACTIVE PROTEIN [CHEM] AM CBC WITH AUTO DIFF [HEME] AM MAGNESIUM [CHEM] AM - Plan Plan:: Assessment: Acute: 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 Mars - S/p Laparotomy with RAMESH/SBO radical tumor debulking, resection of the terminal ileum and cecum with re-anastomosis, pelvic and para-aortic lymphadenopathy, with ureteral resection and re-anastomosis and placement of venous access port - She follow Dr. Montes in [place] with follow up PET scan for next Sunday Ileus - Has nausea, vomiting and abdominal pain - CT scan shows mild colonic ileus - HAs right Colon Cancer with Signet Ring and Diffuse Peritoneal Carcinomatosis - Supportive Care, IV Hydration and PRN Anti-emesis Hypokalemia/Hypomagnesemia/Hypocalcemia - K of 2.3-->2.4; Mg of 1.5; Corrected Ca of 7.1--->6.8 - 2/2 GI Loss - She is not eating or drinking - Replete IV potassium Hypoalbuminemia - Albumin of 2.3 - 2/2 Protein wasting - Dietary consult for weight management Malnutrition - 2/2 Cancer -induced cachexia - BMI of 17.5 - Dietary consult for weight management - Discussed best option with family which is tube feeding - is thinking TPN or infusion Resolved: Dehydration, Improved - 2/2 poor intake - She is clinically dry - IV fluids and monitor fo urine output Chronic: AR, Glaucoma, Asthma, COPD, Gastritis, GERD, PUD, CKD Stage 3, Diverticulosis, Hx/o Diffuse Cystic Mastopathy, Osteoporosis, Anemia, Ovarian CA , Anxiety, Depression and Malnutrition Plan: She is about the same and she is getting weaker by he day Routine AM Labs DVT/Stroke Prophylaxis Dietary consult for weight management RT/RT/OT to assess and treat SW/CM for d/c planning Code status: full Additional orders as above After reviewing records obtained from [place], her overall prognosis is grim. Patient could benefit with hospice/palliative care at this time. Spoke to her family along with her DPOAs (, son and sister), informed them about her dismal response to supportive care. Offered tube feeding but patient's was leaning towards peripheral infusion i.e. TPN. Advised all 3 DPOAs to be on the same page to eliminate confusions regarding treatment care plan. We will attempt to reach Dr. Uribe's tomorrow for any recommendations.
[2018-11-21] MEDS: Dextrose 5%-0.9% NaCl with KCl 1,000 ML IV SCH (23:00)
[2018-11-22] MEDS: Metoclopramide 10 MG/2 ML SDV IVPUSH SCH ×5 (00:11→23:18)
[2018-11-22] MEDS: Heparin Sodium 5,000 Units/ML Vial SUBCUT SCH ×3 (05:34→21:23)
[2018-11-22] MEDS: Pantoprazole 40 MG Vial IVPUSH SCH ×2 (05:34→17:28)
[2018-11-22] MEDS: Albuterol/Ipratropium 3.0-0.5 MG/3 ML Neb Soln INH SCH ×3 (06:09→20:09)
[2018-11-22] MEDS: Budesonide 0.5 MG/2 ML Neb Susp INH SCH ×2 (06:09→20:09)
[2018-11-22] MEDS: Formoterol/Mometasone 200-5 MCG 8.8 GM Inhaler IH SCH (06:10)
[2018-11-22] MEDS ORDERED: Potassium Chloride 10 MEQ in Premix Bag 1 BAG IV STA (07:46)
--- NOTE | 2018-11-22 07:46 | PCM.PN ---
- General Info Date of Service: 11/22/18 Admission Dx/Problem (Free Text): Admission Diagnosis/Problem Admission Diagnosis/Problem Ileus Subjective Update: Follow Up Functional Status: Reports: Pain Controlled, Tolerating Diet, Ambulating, Urinating, New Symptoms - Review of Systems General: Reports: Weakness, Fatigue, Malaise. Denies: Fever, Chills HEENT: Reports: No Symptoms Pulmonary: Denies: Shortness of Breath Cardiovascular: Denies: Chest Pain, Dyspnea on Exertion, Lightheadedness Gastrointestinal: Reports: Decreased Appetite. Denies: Abdominal Pain, Nausea, Vomiting Genitourinary: Reports: No Symptoms Musculoskeletal: Reports: Leg Pain Skin: Reports: Bruising. Denies: Mottled, Pallor, Diaphoresis, Rash, Other Neurological: Reports: Difficulty Walking, Gait Disturbance. Denies: Confusion Psychiatric: Denies: Confusion, Depression, Mood Lability, Anxiety, Agitation, Hallucinations, Suicidal Ideation, Homicidal Ideation Systems Review Comment:: No overnight issues. However this morning she was significantly hypotensive. Her K remains low at 2.9 with Mg of 1.7. Family is still undecided what avenues they want to go as far methods of obtaining sustenance. - Patient Data Vitals - Most Recent: Last Vital Signs Temp 36.6 C 11/22/18 02:46 Pulse 85 11/22/18 02:46 Resp 20 11/22/18 02:46 BP 134/94 H 11/22/18 02:46 Pulse Ox 100 11/22/18 06:11 Weight - Most Recent: 62.868 kg I&O - Last 24 Hours: Intake & Output 11/21/18 11/22/18 11/22/18 22:59 06:59 14:59 Intake Total 2650 1624 Balance 2650 1624 Lab Results Last 24 Hours: Laboratory Results - last 24 hr 11/21/18 11/21/18 11/22/18 Range/Units 17:30 17:30 05:40 WBC 5.73 (3.98-10.04) K/mm3 RBC 3.51 L (3.98-5.22) M/mm3 Hgb 10.9 L (11.2-15.7) gm/L Hct 31.9 L (34.1-44.9) % MCV 90.9 (79.4-94.8) fl MCH 31.1 (25.6-32.2) pg MCHC 34.2 (32.2-35.5) g/dl RDW Std Deviation 54.1 H (36.4-46.3) fL Plt Count 285 (182-369) K/mm3 MPV 10.2 (9.4-12.3) fl Neut % (Auto) 66.5 (34.0-71.1) % Lymph % (Auto) 18.7 L (19.3-51.7) % [place] % (Auto) 13.8 H (4.7-12.5) % Eos % (Auto) 0.5 L (0.7-5.8) Baso % (Auto) 0.2 (0.1-1.2) % Neut # (Auto) 3.81 (1.56-6.13) K/mm3 Lymph # (Auto) 1.07 L (1.18-3.74) K/mm3 [place] # (Auto) 0.79 H (0.24-0.36) K/mm3 Eos # (Auto) 0.03 L (0.04-0.36) K/mm3 Baso # (Auto) 0.01 (0.01-0.08) K/mm3 Sodium 142 (136-145) mEq/L Potassium 2.9 L (3.5-5.1) mEq/L Chloride 108 H (98-107) mEq/L Carbon Dioxide 24 (21-32) mEq/L Anion Gap 12.9 (5-15) BUN 10 (7-18) mg/dL Creatinine 1.1 H (0.55-1.02) mg/dL Est Cr Clr Drug Dosing 43.80 mL/min Estimated GFR (MDRD) 49 (>60) mL/min BUN/Creatinine Ratio 9.1 L (14-18) Glucose 121 H (83-115) mg/dL Calcium 6.6 L (8.5-10.1) mg/dL Magnesium 1.9 (1.8-2.4) mg/dl C-Reactive Protein (<1.0) mg/dL 11/22/18 Range/Units 05:53 WBC (3.98-10.04) K/mm3 RBC (3.98-5.22) M/mm3 Hgb (11.2-15.7) gm/L Hct (34.1-44.9) % MCV (79.4-94.8) fl MCH (25.6-32.2) pg MCHC (32.2-35.5) g/dl RDW Std Deviation (36.4-46.3) fL Plt Count (182-369) K/mm3 MPV (9.4-12.3) fl Neut % (Auto) (34.0-71.1) % Lymph % (Auto) (19.3-51.7) % [place] % (Auto) (4.7-12.5) % Eos % (Auto) (0.7-5.8) Baso % (Auto) (0.1-1.2) % Neut # (Auto) (1.56-6.13) K/mm3 Lymph # (Auto) (1.18-3.74) K/mm3 [place] # (Auto) (0.24-0.36) K/mm3 Eos # (Auto) (0.04-0.36) K/mm3 Baso # (Auto) (0.01-0.08) K/mm3 Sodium 141 (136-145) mEq/L Potassium 2.9 L (3.5-5.1) mEq/L Chloride 108 H (98-107) mEq/L Carbon Dioxide 22 (21-32) mEq/L Anion Gap 13.9 (5-15) BUN 10 (7-18) mg/dL Creatinine 1.1 H (0.55-1.02) mg/dL Est Cr Clr Drug Dosing 46.56 mL/min Estimated GFR (MDRD) 49 (>60) mL/min BUN/Creatinine Ratio 9.1 L (14-18) Glucose 114 (83-115) mg/dL Calcium 6.7 L (8.5-10.1) mg/dL Magnesium 1.7 L (1.8-2.4) mg/dl C-Reactive Protein 5.4 H* (<1.0) mg/dL Vj Results Last 24 Hours: Microbiology 11/20/18 02:09 Urine Culture - Preliminary Urine, Catheterized Klebsiella Pneumoniae Med Orders - Current: Current Medications Acetaminophen (Tylenol) 650 mg PO Q4H PRN PRN Reason: Pain (Mild 1-3)/fever Hydrocodone Bitart/Acetaminophen ([place] 325-5 Mg) 1 tab PO Q4H PRN PRN Reason: Pain (moderate 4-6) Albuterol (Proventil Neb Soln) 0.63 mg INH ASDIRECTED PRN PRN Reason: Shortness of Breath Albuterol/Ipratropium (Duoneb 3.0-0.5 Mg/3 Ml) 3 ml NEB Q4H PRN PRN Reason: Shortness Of Breath/wheezing Albuterol/Ipratropium (Duoneb 3.0-0.5 Mg/3 Ml) 3 ml INH TIDRT [facility] Last Admin: 11/22/18 06:09 Dose: 3 ml Bisacodyl (Dulcolax) 5 mg PO DAILY PRN PRN Reason: Constipation Budesonide (Pulmicort) 0.5 mg INH BIDRT [facility] Last Admin: 11/22/18 06:09 Dose: 0.5 mg Cyanocobalamin (Vitamin B12) 1,000 mcg IM Q14D [facility] Last Admin: 11/20/18 09:11 Dose: Not Given Dextrose/Water (Dextrose 50% In Water) 25 ml IVPUSH ASDIRECTED PRN PRN Reason: hypoglycemia Last Admin: 11/20/18 11:38 Dose: 25 ml Docusate Sodium (Colace) 100 mg PO BID PRN PRN Reason: Constipation Ferrous Sulfate (Ferrous Sulfate) 325 mg PO DAILY [facility] Last Admin: 11/21/18 08:45 Dose: Not Given Fluticasone Propionate (Flonase) 1 - 2 gm NASBOTH DAILY [facility] Last Admin: 11/21/18 08:12 Dose: 1 spray Heparin Sodium (Porcine) (Heparin Sodium) 5,000 units SUBCUT Q8H [facility] Last Admin: 11/22/18 05:34 Dose: 5,000 units Promethazine HCl 6.25 mg/ (Sodium Chloride) 50.25 mls @ 100 mls/hr IV Q6H PRN PRN Reason: Nausea/Vomiting Last Admin: 11/20/18 11:25 Dose: 100 mls/hr Potassium Chloride/Dextrose/Sod Cl (D5 Ns With 20 Meq Kcl) 1,000 mls @ 125 mls/ hr IV ASDIRECTED [facility] Last Admin: 11/21/18 23:00 Dose: 125 mls/hr Latanoprost (Xalatan 0.005% Ophth Soln) 0 ml EYEBOTH DAILY [facility] Last Admin: 11/21/18 08:13 Dose: 1 drop Lorazepam (Ativan) 0.5 mg IV Q6H PRN PRN Reason: Anxiety Last Admin: 11/21/18 08:37 Dose: 0.5 mg Metoclopramide HCl (Reglan) 10 mg IVPUSH Q6H [facility] Last Admin: 11/22/18 05:34 Dose: 10 mg Metoprolol Tartrate (Lopressor) 5 mg IVPUSH Q4H PRN PRN Reason: Tachycardia Last Admin: 11/20/18 22:14 Dose: 5 mg Metoprolol Tartrate (Lopressor) 25 mg PO Q12H [facility] Last Admin: 11/21/18 09:26 Dose: Not Given Miscellaneous Information (Remove Patch) 1 ea TRDERM Q72H [facility] Mometasone Furoate/Formoterol Fumar (Dulera 200-5 Mcg) 2 puff IH DAILY@0600 [facility] Last Admin: 11/22/18 06:10 Dose: 2 puff Ondansetron HCl (Zofran) 4 mg IV Q6H PRN PRN Reason: Nausea/Vomiting Last Admin: 11/21/18 18:37 Dose: 4 mg Ondansetron HCl (Zofran Odt) 4 mg PO Q4H PRN PRN Reason: Nausea Pantoprazole Sodium (Protonix Iv) 40 mg IVPUSH Q12H [facility] Last Admin: 11/22/18 05:34 Dose: 40 mg Scopolamine (Transderm-Scop) 1.5 mg TRDERM Q72H PRN PRN Reason: Nausea/Vomiting Last Admin: 11/19/18 17:24 Dose: 1.5 mg Senna/Docusate Sodium (Senna Plus) 1 tab PO BID PRN PRN Reason: Constipation Sodium Chloride (Saline Flush) 10 ml FLUSH ASDIRECTED PRN PRN Reason: Keep Vein Open Last Admin: 11/19/18 07:25 Dose: 10 ml Zolpidem Tartrate (Ambien) 5 mg PO BEDTIME PRN PRN Reason: Sleep Discontinued Medications Cyanocobalamin (Vitamin B12) 1,000 mcg IM Q14D [facility] Last Admin: 11/20/18 08:21 Dose: Not Given Denosumab (Prolia) 60 mg SUBCUT ASDIRECTED [facility] Diatrizoate Meglum/Diatrizoate Sod (Gastrografin 37%) 90 ml PO ONETIME ONE Stop: 11/19/18 07:56 Last Admin: 11/19/18 09:21 Dose: 90 ml Diphenhydramine HCl (Benadryl) 50 mg IVPUSH ONETIME ONE Stop: 11/20/18 19:01 Last Admin: 11/20/18 19:08 Dose: 50 mg Diphenhydramine HCl (Benadryl) Confirm Administered Dose 50 mg .ROUTE .STK-MED ONE Stop: 11/20/18 19:08 Last Admin: 11/20/18 20:01 Dose: Not Given Hydromorphone HCl (Dilaudid) 0.5 mg IVPUSH ONETIME ONE Stop: 11/19/18 07:08 Last Admin: 11/19/18 07:24 Dose: 0.5 mg Sodium Chloride (Normal Saline) 1,000 mls @ 1,000 mls/hr IV .BOLUS STA Stop: 11/19/18 08:05 Last Admin: 11/19/18 07:24 Dose: 1,000 mls/hr Potassium Chloride 10 meq/ (Premix) 100 mls @ 100 mls/hr IV ONETIME ONE Stop: 11/19/18 10:44 Last Admin: 11/19/18 10:21 Dose: 100 mls/hr Sodium Chloride (Normal Saline) Confirm Administered Dose 1,000 mls @ as directed .ROUTE .STK-MED ONE Stop: 11/19/18 10:18 Last Admin: 11/19/18 10:32 Dose: Not Given Sodium Chloride (Normal Saline) 1,000 mls @ 1,000 mls/hr IV ONETIME ONE Stop: 11/19/18 13:53 Last Admin: 11/19/18 13:01 Dose: 1,000 mls/hr Potassium Chloride 10 meq/ (Premix) 100 mls @ 100 mls/hr IV Q1H [facility] Stop: 11/19/18 22:14 Last Admin: 11/20/18 00:49 Dose: 100 mls/hr Sodium Chloride (Normal Saline) 1,000 mls @ 50 mls/hr IV ASDIRECTED [facility] Stop: 11/19/18 23:30 Last Admin: 11/19/18 17:17 Dose: 50 mls/hr Lactated Ringer's (Ringers, Lactated) 1,000 mls @ 999 mls/hr IV .BOLUS ONE Stop: 11/19/18 21:10 Last Admin: 11/19/18 20:21 Dose: 999 mls/hr Lactated Ringer's (Ringers, Lactated) 1,000 mls @ 150 mls/hr IV ASDIRECTED [facility] Last Admin: 11/20/18 04:54 Dose: 150 mls/hr Magnesium Sulfate 2 gm/ Premix 50 mls @ 25 mls/hr IV ONETIME ONE Stop: 11/19/18 23:02 Last Admin: 11/19/18 22:00 Dose: 25 mls/hr Potassium Chloride 10 meq/ (Premix) 100 mls @ 100 mls/hr IV Q1H [facility] Stop: 11/20/18 03:29 Last Admin: 11/20/18 07:05 Dose: 100 mls/hr Dextrose/Lactated Ringer's (Dextrose 5%-Lactated Ringers) 1,000 mls @ 125 mls/ hr IV ASDIRECTED [facility] Dextrose/Lactated Ringer's (Dextrose 5%-Lactated Ringers) 1,000 mls @ 150 mls/ hr IV ASDIRECTED [facility] Last Admin: 11/21/18 21:55 Dose: 150 mls/hr Potassium Chloride 10 meq/ (Premix) 100 mls @ 100 mls/hr IV Q1H [facility] Stop: 11/20/18 18:59 Last Admin: 11/20/18 18:38 Dose: 100 mls/hr Magnesium Sulfate 2 gm/ Premix 50 mls @ 25 mls/hr IV ONETIME ONE Stop: 11/21/18 09:59 Last Admin: 11/21/18 08:12 Dose: 25 mls/hr Potassium Chloride 10 meq/ (Premix) 100 mls @ 100 mls/hr IV Q1H [facility] Stop: 11/21/18 13:59 Last Admin: 11/21/18 13:41 Dose: 100 mls/hr Iopamidol (Isovue-300 (61%)) 100 ml IVPUSH ONETIME ONE Stop: 11/19/18 07:56 Last Admin: 11/19/18 15:21 Dose: Not Given Lorazepam (Ativan) 0.25 mg IV Q6H PRN PRN Reason: Anxiety Last Admin: 11/20/18 08:17 Dose: 0.25 mg Lorazepam (Ativan) 0.25 mg IVPUSH ONETIME ONE Stop: 11/20/18 11:51 Last Admin: 11/20/18 11:50 Dose: 0.25 mg Metoclopramide HCl (Reglan) 10 mg IVPUSH Q6H PRN PRN Reason: Nausea/Vomiting Last Admin: 11/20/18 04:56 Dose: 10 mg Mometasone Furoate/Formoterol Fumar (Dulera 200-5 Mcg) 2 puff IH DAILY [facility] Ondansetron HCl (Zofran) 4 mg IVPUSH ONETIME ONE Stop: 11/19/18 07:07 Last Admin: 11/19/18 07:24 Dose: 4 mg Potassium Chloride (Klor-Con M20) 60 meq PO ONETIME ONE Stop: 11/19/18 20:42 Last Admin: 11/20/18 08:54 Dose: Not Given Sodium Chloride (Saline Flush) 10 ml FLUSH ONETIME ONE Stop: 11/19/18 07:56 Last Admin: 11/19/18 10:21 Dose: 10 ml Sucralfate (Carafate) 1 gm PO QIDACANDBED [facility] Last Admin: 11/21/18 11:59 Dose: Not Given - Exam General: Alert, Oriented, Cooperative, No Acute Distress, Other (emaciated and very weak) HEENT: Pupils Equal, Pupils Reactive, EOMI, Mucous Membr. Moist/[place], Other ( eyes sunken) Neck: Supple Lungs: Normal Respiratory Effort, Decreased Breath Sounds Cardiovascular: Regular Rate, Regular Rhythm GI/Abdominal Exam: Normal Bowel Sounds, Soft, Non-Tender, No Organomegaly, No Distention, No Abnormal Bruit, Other (midline abdominal scar) (Female) Exam: Deferred Back Exam: Normal Inspection, Decreased Range of Motion Extremities: Normal Inspection, Normal Range of Motion, Non-Tender, No Pedal Edema, Normal Capillary Refill Peripheral Pulses: 1+: Dorsalis Pedis (L), Dorsalis Pedis (R) Skin: Warm, Dry, Intact, Ecchymosis Neurological: No New Focal Deficit. No: Normal Gait Psy/Mental Status: Alert, Normal Mood. No: Normal Affect, Anxious, Agitated, Homicidal Ideation, Hallucinations - Problem List Review Problem List Initiated/Reviewed/Updated: Yes - My Orders Last 24 Hours: My Active Orders 11/21/18 09:49 Consult to Speech Language Pathology [[employer] Evaluation and Treatment] [CONS] Routine 11/21/18 17:00 Pantoprazole [ProTONIX IV] 40 mg IVPUSH Q12H 11/21/18 22:15 Dextrose 5%-0.9% NaCl with KCl [D5 NS with 20 mEq KCl] 1,000 ml IV ASDIRECTED 11/22/18 07:00 KUB [Abdomen 1V Flat] [CR] Routine 11/22/18 16:15 Remove Patch 1 ea TRDERM Q72H 11/23/18 05:11 BASIC METABOLIC PANEL,BMP [CHEM] AM C-REACTIVE PROTEIN [CHEM] AM CBC WITH AUTO DIFF [HEME] AM MAGNESIUM [CHEM] AM 11/24/18 05:11 BASIC METABOLIC PANEL,BMP [CHEM] AM C-REACTIVE PROTEIN [CHEM] AM CBC WITH AUTO DIFF [HEME] AM MAGNESIUM [CHEM] AM - Plan Plan:: Assessment: Acute: 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 Mars - S/p Laparotomy with RAMESH/SBO radical tumor debulking, resection of the terminal ileum and cecum with re-anastomosis, pelvic and para-aortic lymphadenopathy, with ureteral resection and re-anastomosis and placement of venous access port - She follow Dr. Montes in [place] with follow up PET scan for next Sunday - Report from Dr. Uribe's states "patient understand this is incurable" Colonic Ileus - Has nausea, vomiting and abdominal pain - CT scan shows mild colonic ileus - HAs right Colon Cancer with Signet Ring and Diffuse Peritoneal Carcinomatosis - Supportive Care, IV Hydration and PRN Anti-emesis - KUB shows colonic ileus Hypokalemia/Hypomagnesemia/Hypocalcemia - K of 2.3-->2.4--> 2.9; Mg of 1.5--> 1.9; Corrected Ca of 7.1-->6.8 - 2/2 GI Loss - She is not eating or drinking - Replete IV potassium Hypoalbuminemia - Albumin of 2.3 - 2/2 Protein wasting - Dietary consult for weight management Malnutrition - 2/2 Cancer -induced cachexia - BMI of 17.5 - Dietary consult for weight management - Discussed best option with family which is tube feeding - is thinking TPN or infusion Relative Hypotension - 2/2 poor fluid intake - She is not taking any of her maintenance medications - Volume resuscitation - If able to swallow pending [employer] eval; we will provide PRN Midodrine for hypotension End of Life Care - She would benefit with Hospice/Palliative Care - Her sister will be here tomorrow - We will offer this services again in the morning Resolved: Dehydration, Improved - 2/2 poor intake - She is clinically dry - IV fluids and monitor fo urine output Chronic: AR, Glaucoma, Asthma, COPD, Gastritis, GERD, PUD, CKD Stage 3, Diverticulosis, Hx/o Diffuse Cystic Mastopathy, Osteoporosis, Anemia, Ovarian CA , Anxiety, Depression and Malnutrition Plan: She is essentially the same. Patient has poor insights regarding her end stage illness and he family has no end of life care plan. Routine AM Labs DVT/Stroke Prophylaxis Volume resuscitation Dietary consult for weight management RT/RT/OT to assess and treat SW/CM for d/c planning Code status: full Additional orders as above Overall prognosis is very poor LOS > 96hrs pending discharge care plan Called Dr. Uribe's office, he is out of town since Sunday. He will be ack next week. Relayed info to hsband and son. insists on waiting for Dr. Uribe's input.
[2018-11-22] MEDS ORDERED: Magnesium Sulfate/Water 2 GM in Premix Bag 1 BAG IV ONE (08:00)
--- NOTE | 2018-11-22 08:43 | CR ---
Abdomen: Supine view of the abdomen was obtained. Comparison: Prior CT exam of 11/19/18 and abdominal x-ray of 10/24/18. Gas dilated colon is seen. This is fairly similar to previous CT exam but has increased from prior abdominal x-ray. No rectal gas is seen. Surgical clips seen within the pelvis. Mild vascular calcification is seen. No supine evidence of free air is seen. Impression: 1. Gas within dilated colon. Lack of rectal gas is seen. Uncertain if findings represent asymmetric colonic ileus or due to distal colonic obstruction. Diagnostic code #3
[2018-11-22] MEDS: Ferrous Sulfate 325 MG Tab PO SCH (08:48)
[2018-11-22] MEDS: Ondansetron 4 MG/2 ML SDV IV PRN ×2 (08:48→15:22)
[2018-11-22] MEDS: HYDROmorphone 0.5 MG/0.5 ML Syringe IVPUSH PRN ×2 (08:49→13:00)
[2018-11-22] MEDS: Fluticasone Propionate Nasal Spray 16 GM Bottle NASBOTH SCH (08:49)
[2018-11-22] MEDS: Dextrose 5%-0.9% NaCl with KCl 1,000 ML IV SCH ×3 (08:51→17:28)
[2018-11-22] MEDS: Latanoprost 0.005% Ophth Soln 2.5 ML Bottle EYEBOTH SCH (11:23)
[2018-11-22] MEDS: Metoprolol Tartrate 25 MG Tab PO SCH ×2 (11:24→21:24)
[2018-11-22] MEDS ORDERED: Midodrine 5 MG Tab PO PRN (12:42)
[2018-11-22] MEDS: Potassium Chloride 10 MEQ in Premix Bag 1 BAG IV SCH ×4 (12:56→17:21)
[2018-11-22] MEDS: Scopolamine 1.5 MG Transdermal Patch TRDERM PRN (17:27)
[2018-11-22] MEDS: LORazepam 2 MG/ML SDV IV PRN (21:23)
[2018-11-23] MEDS: Dextrose 5%-0.9% NaCl with KCl 1,000 ML IV SCH ×2 (03:47→12:40)
[2018-11-23] MEDS: Heparin Sodium 5,000 Units/ML Vial SUBCUT SCH ×3 (04:01→22:40)
[2018-11-23] MEDS: Pantoprazole 40 MG Vial IVPUSH SCH ×2 (04:02→17:40)
[2018-11-23] MEDS: Budesonide 0.5 MG/2 ML Neb Susp INH SCH ×2 (06:10→23:59)
[2018-11-23] MEDS: Formoterol/Mometasone 200-5 MCG 8.8 GM Inhaler IH SCH ×2 (06:10→06:16)
[2018-11-23] MEDS: Albuterol/Ipratropium 3.0-0.5 MG/3 ML Neb Soln INH SCH ×3 (06:10→23:59)
[2018-11-23] MEDS: Metoclopramide 10 MG/2 ML SDV IVPUSH SCH ×4 (06:31→23:29)
[2018-11-23] MEDS: Fluticasone Propionate Nasal Spray 16 GM Bottle NASBOTH SCH (09:20)
[2018-11-23] MEDS: Latanoprost 0.005% Ophth Soln 2.5 ML Bottle EYEBOTH SCH (09:20)
[2018-11-23] MEDS: Ferrous Sulfate 325 MG Tab PO SCH (09:33)
[2018-11-23] MEDS: HYDROmorphone 0.5 MG/0.5 ML Syringe IVPUSH PRN ×2 (10:01→18:14)
[2018-11-23] MEDS ORDERED: Promethazine 25 MG/ML SDV ONE (10:17)
[2018-11-23] MEDS: Ondansetron 4 MG/2 ML SDV IV PRN (10:20)
--- NOTE | 2018-11-23 10:30 | PCM.PN ---
- General Info Date of Service: 11/23/18 Admission Dx/Problem (Free Text): Admission Diagnosis/Problem Admission Diagnosis/Problem Ileus Subjective Update: Follow Up Functional Status: Reports: Pain Controlled, Urinating. Denies: Tolerating Diet , Ambulating, New Symptoms Pain Score: 4 - Review of Systems General: Reports: Weakness, Fatigue, Malaise. Denies: Fever, Chills HEENT: Reports: No Symptoms Pulmonary: Denies: Shortness of Breath, Cough Cardiovascular: Denies: Chest Pain, Dyspnea on Exertion, Lightheadedness Gastrointestinal: Denies: Abdominal Pain, Nausea, Vomiting Genitourinary: Reports: No Symptoms Musculoskeletal: Reports: No Symptoms, Other (knee pain) Skin: Reports: Bruising. Denies: Cyanosis Neurological: Reports: Difficulty Walking, Weakness, Gait Disturbance. Denies: Confusion, Pre-Existing Deficit Psychiatric: Denies: Depression, Anxiety, Agitation, Cravings, Hallucinations Systems Review Comment:: No significant overnight issues. Her labs are much better this morning. She complaints of right knee pain but rates her pain at 4-5/10. No abdominal pain but still nauseous with dry heaves. - Patient Data Vitals - Most Recent: Last Vital Signs Temp 36.7 C 11/23/18 03:31 Pulse 89 11/23/18 09:02 Resp 14 11/23/18 09:02 BP 106/76 11/23/18 09:02 Pulse Ox 96 11/23/18 09:02 Weight - Most Recent: 63.14 kg I&O - Last 24 Hours: Intake & Output 11/22/18 11/23/18 11/23/18 22:59 06:59 14:59 Intake Total 3158 1396 Output Total 250 Balance 3158 1146 Imaging Impressions - Last 24 Hours: Right Knee x-ray: Osteopenia and slight media joint space narrowing Lab Results Last 24 Hours: Laboratory Results - last 24 hr 11/23/18 11/23/18 Range/Units 05:06 05:06 WBC 6.69 (3.98-10.04) K/mm3 RBC 3.34 L (3.98-5.22) M/mm3 Hgb 10.4 L (11.2-15.7) gm/L Hct 30.3 L (34.1-44.9) % MCV 90.7 (79.4-94.8) fl MCH 31.1 (25.6-32.2) pg MCHC 34.3 (32.2-35.5) g/dl RDW Std Deviation 55.2 H (36.4-46.3) fL Plt Count 223 (182-369) K/mm3 MPV 10.0 (9.4-12.3) fl Neut % (Auto) 73.3 H (34.0-71.1) % Lymph % (Auto) 13.9 L (19.3-51.7) % [place] % (Auto) 12.1 (4.7-12.5) % Eos % (Auto) 0.3 L (0.7-5.8) Baso % (Auto) 0.1 (0.1-1.2) % Neut # (Auto) 4.90 (1.56-6.13) K/mm3 Lymph # (Auto) 0.93 L (1.18-3.74) K/mm3 [place] # (Auto) 0.81 H (0.24-0.36) K/mm3 Eos # (Auto) 0.02 L (0.04-0.36) K/mm3 Baso # (Auto) 0.01 (0.01-0.08) K/mm3 Sodium 143 (136-145) mEq/L Potassium 3.7 (3.5-5.1) mEq/L Chloride 113 H (98-107) mEq/L Carbon Dioxide 18 L (21-32) mEq/L Anion Gap 15.7 H (5-15) BUN 9 (7-18) mg/dL Creatinine 1.0 (0.55-1.02) mg/dL Est Cr Clr Drug Dosing 51.43 mL/min Estimated GFR (MDRD) 55 (>60) mL/min BUN/Creatinine Ratio 9.0 L (14-18) Glucose 127 H (83-115) mg/dL Calcium 6.4 L (8.5-10.1) mg/dL Magnesium 1.8 (1.8-2.4) mg/dl C-Reactive Protein 5.3 H* (<1.0) mg/dL Vj Results Last 24 Hours: Microbiology 11/20/18 02:09 Urine Culture - Preliminary Urine, Catheterized Klebsiella Pneumoniae Gram Positive Cocci Med Orders - Current: Current Medications Acetaminophen (Tylenol) 650 mg PO Q4H PRN PRN Reason: Pain (Mild 1-3)/fever Hydrocodone Bitart/Acetaminophen (Limon 325-5 Mg) 1 tab PO Q4H PRN PRN Reason: Pain (moderate 4-6) Albuterol (Proventil Neb Soln) 0.63 mg INH ASDIRECTED PRN PRN Reason: Shortness of Breath Albuterol/Ipratropium (Duoneb 3.0-0.5 Mg/3 Ml) 3 ml NEB Q4H PRN PRN Reason: Shortness Of Breath/wheezing Albuterol/Ipratropium (Duoneb 3.0-0.5 Mg/3 Ml) 3 ml INH TIDRT [facility] Last Admin: 11/23/18 06:10 Dose: 3 ml Bisacodyl (Dulcolax) 5 mg PO DAILY PRN PRN Reason: Constipation Budesonide (Pulmicort) 0.5 mg INH BIDRT [facility] Last Admin: 11/23/18 06:10 Dose: 0.5 mg Cyanocobalamin (Vitamin B12) 1,000 mcg IM Q14D [facility] Last Admin: 11/20/18 09:11 Dose: Not Given Dextrose/Water (Dextrose 50% In Water) 25 ml IVPUSH ASDIRECTED PRN PRN Reason: hypoglycemia Last Admin: 11/20/18 11:38 Dose: 25 ml Docusate Sodium (Colace) 100 mg PO BID PRN PRN Reason: Constipation Ferrous Sulfate (Ferrous Sulfate) 325 mg PO DAILY [facility] Last Admin: 11/23/18 09:33 Dose: Not Given Fluticasone Propionate (Flonase) 1 - 2 gm NASBOTH DAILY [facility] Last Admin: 11/23/18 09:20 Dose: 1 spray Heparin Sodium (Porcine) (Heparin Sodium) 5,000 units SUBCUT Q8H [facility] Last Admin: 11/23/18 04:01 Dose: 5,000 units Hydromorphone HCl (Dilaudid) 0.25 mg IVPUSH Q4H PRN PRN Reason: Pain Last Admin: 11/23/18 10:01 Dose: 0.25 mg Promethazine HCl 6.25 mg/ (Sodium Chloride) 50.25 mls @ 100 mls/hr IV Q6H PRN PRN Reason: Nausea/Vomiting Last Admin: 11/20/18 11:25 Dose: 100 mls/hr Potassium Chloride/Dextrose/Sod Cl (D5 Ns With 20 Meq Kcl) 1,000 mls @ 125 mls/ hr IV ASDIRECTED [facility] Last Admin: 11/23/18 03:47 Dose: 125 mls/hr Latanoprost (Xalatan 0.005% Ophth Soln) 0 ml EYEBOTH DAILY [facility] Last Admin: 11/23/18 09:20 Dose: 1 drop Lorazepam (Ativan) 0.5 mg IV Q6H PRN PRN Reason: Anxiety Last Admin: 11/22/18 21:23 Dose: 0.5 mg Metoclopramide HCl (Reglan) 10 mg IVPUSH Q6H [facility] Last Admin: 11/23/18 06:31 Dose: 10 mg Metoprolol Tartrate (Lopressor) 5 mg IVPUSH Q4H PRN PRN Reason: Tachycardia Last Admin: 11/20/18 22:14 Dose: 5 mg Midodrine (Midodrine) 10 mg PO TID PRN PRN Reason: Hypotension Last Admin: 11/22/18 12:56 Dose: 10 mg Miscellaneous Information (Remove Patch) 1 ea TRDERM Q72H [facility] Last Admin: 11/22/18 17:22 Dose: 1 ea Mometasone Furoate/Formoterol Fumar (Dulera 200-5 Mcg) 2 puff IH DAILY@0600 [facility] Last Admin: 11/23/18 06:16 Dose: Not Given Ondansetron HCl (Zofran) 4 mg IV Q6H PRN PRN Reason: Nausea/Vomiting Last Admin: 11/23/18 10:20 Dose: 4 mg Ondansetron HCl (Zofran Odt) 4 mg PO Q4H PRN PRN Reason: Nausea Pantoprazole Sodium (Protonix Iv) 40 mg IVPUSH Q12H [facility] Last Admin: 11/23/18 04:02 Dose: 40 mg Scopolamine (Transderm-Scop) 1.5 mg TRDERM Q72H PRN PRN Reason: Nausea/Vomiting Last Admin: 11/22/18 17:27 Dose: 1.5 mg Senna/Docusate Sodium (Senna Plus) 1 tab PO BID PRN PRN Reason: Constipation Sodium Chloride (Saline Flush) 10 ml FLUSH ASDIRECTED PRN PRN Reason: Keep Vein Open Last Admin: 11/19/18 07:25 Dose: 10 ml Zolpidem Tartrate (Ambien) 5 mg PO BEDTIME PRN PRN Reason: Sleep Discontinued Medications Cyanocobalamin (Vitamin B12) 1,000 mcg IM Q14D [facility] Last Admin: 11/20/18 08:21 Dose: Not Given Denosumab (Prolia) 60 mg SUBCUT ASDIRECTED [facility] Diatrizoate Meglum/Diatrizoate Sod (Gastrografin 37%) 90 ml PO ONETIME ONE Stop: 11/19/18 07:56 Last Admin: 11/19/18 09:21 Dose: 90 ml Diphenhydramine HCl (Benadryl) 50 mg IVPUSH ONETIME ONE Stop: 11/20/18 19:01 Last Admin: 11/20/18 19:08 Dose: 50 mg Diphenhydramine HCl (Benadryl) Confirm Administered Dose 50 mg .ROUTE .STK-MED ONE Stop: 11/20/18 19:08 Last Admin: 11/20/18 20:01 Dose: Not Given Hydromorphone HCl (Dilaudid) 0.5 mg IVPUSH ONETIME ONE Stop: 11/19/18 07:08 Last Admin: 11/19/18 07:24 Dose: 0.5 mg Sodium Chloride (Normal Saline) 1,000 mls @ 1,000 mls/hr IV .BOLUS STA Stop: 11/19/18 08:05 Last Admin: 11/19/18 07:24 Dose: 1,000 mls/hr Potassium Chloride 10 meq/ (Premix) 100 mls @ 100 mls/hr IV ONETIME ONE Stop: 11/19/18 10:44 Last Admin: 11/19/18 10:21 Dose: 100 mls/hr Sodium Chloride (Normal Saline) Confirm Administered Dose 1,000 mls @ as directed .ROUTE .STK-MED ONE Stop: 11/19/18 10:18 Last Admin: 11/19/18 10:32 Dose: Not Given Sodium Chloride (Normal Saline) 1,000 mls @ 1,000 mls/hr IV ONETIME ONE Stop: 11/19/18 13:53 Last Admin: 11/19/18 13:01 Dose: 1,000 mls/hr Potassium Chloride 10 meq/ (Premix) 100 mls @ 100 mls/hr IV Q1H [facility] Stop: 11/19/18 22:14 Last Admin: 11/20/18 00:49 Dose: 100 mls/hr Sodium Chloride (Normal Saline) 1,000 mls @ 50 mls/hr IV ASDIRECTED [facility] Stop: 11/19/18 23:30 Last Admin: 11/19/18 17:17 Dose: 50 mls/hr Lactated Ringer's (Ringers, Lactated) 1,000 mls @ 999 mls/hr IV .BOLUS ONE Stop: 11/19/18 21:10 Last Admin: 11/19/18 20:21 Dose: 999 mls/hr Lactated Ringer's (Ringers, Lactated) 1,000 mls @ 150 mls/hr IV ASDIRECTED [facility] Last Admin: 11/20/18 04:54 Dose: 150 mls/hr Magnesium Sulfate 2 gm/ Premix 50 mls @ 25 mls/hr IV ONETIME ONE Stop: 11/19/18 23:02 Last Admin: 11/19/18 22:00 Dose: 25 mls/hr Potassium Chloride 10 meq/ (Premix) 100 mls @ 100 mls/hr IV Q1H [facility] Stop: 11/20/18 03:29 Last Admin: 11/20/18 07:05 Dose: 100 mls/hr Dextrose/Lactated Ringer's (Dextrose 5%-Lactated Ringers) 1,000 mls @ 125 mls/ hr IV ASDIRECTED [facility] Dextrose/Lactated Ringer's (Dextrose 5%-Lactated Ringers) 1,000 mls @ 150 mls/ hr IV ASDIRECTED [facility] Last Admin: 11/21/18 21:55 Dose: 150 mls/hr Potassium Chloride 10 meq/ (Premix) 100 mls @ 100 mls/hr IV Q1H [facility] Stop: 11/20/18 18:59 Last Admin: 11/20/18 18:38 Dose: 100 mls/hr Magnesium Sulfate 2 gm/ Premix 50 mls @ 25 mls/hr IV ONETIME ONE Stop: 11/21/18 09:59 Last Admin: 11/21/18 08:12 Dose: 25 mls/hr Potassium Chloride 10 meq/ (Premix) 100 mls @ 100 mls/hr IV Q1H [facility] Stop: 11/21/18 13:59 Last Admin: 11/21/18 13:41 Dose: 100 mls/hr Magnesium Sulfate 2 gm/ Premix 50 mls @ 25 mls/hr IV ONETIME ONE Stop: 11/22/18 09:59 Last Admin: 11/22/18 08:47 Dose: 25 mls/hr Potassium Chloride 10 meq/ (Premix) 100 mls @ 100 mls/hr IV NOW STA Stop: 11/22/18 08:45 Last Admin: 11/22/18 08:47 Dose: 100 mls/hr Potassium Chloride 10 meq/ (Premix) 100 mls @ 100 mls/hr IV Q1H [facility] Stop: 11/22/18 16:59 Last Admin: 11/22/18 17:21 Dose: 100 mls/hr Iopamidol (Isovue-300 (61%)) 100 ml IVPUSH ONETIME ONE Stop: 11/19/18 07:56 Last Admin: 11/19/18 15:21 Dose: Not Given Lorazepam (Ativan) 0.25 mg IV Q6H PRN PRN Reason: Anxiety Last Admin: 11/20/18 08:17 Dose: 0.25 mg Lorazepam (Ativan) 0.25 mg IVPUSH ONETIME ONE Stop: 11/20/18 11:51 Last Admin: 11/20/18 11:50 Dose: 0.25 mg Metoclopramide HCl (Reglan) 10 mg IVPUSH Q6H PRN PRN Reason: Nausea/Vomiting Last Admin: 11/20/18 04:56 Dose: 10 mg Metoprolol Tartrate (Lopressor) 25 mg PO Q12H [facility] Last Admin: 11/22/18 21:24 Dose: Not Given Mometasone Furoate/Formoterol Fumar (Dulera 200-5 Mcg) 2 puff IH DAILY [facility] Ondansetron HCl (Zofran) 4 mg IVPUSH ONETIME ONE Stop: 11/19/18 07:07 Last Admin: 11/19/18 07:24 Dose: 4 mg Potassium Chloride (Klor-Con M20) 60 meq PO ONETIME ONE Stop: 11/19/18 20:42 Last Admin: 11/20/18 08:54 Dose: Not Given Promethazine HCl (Phenergan) Confirm Administered Dose 25 mg .ROUTE .STK-MED ONE Stop: 11/23/18 10:18 Last Admin: 11/23/18 10:21 Dose: Not Given Sodium Chloride (Saline Flush) 10 ml FLUSH ONETIME ONE Stop: 11/19/18 07:56 Last Admin: 11/19/18 10:21 Dose: 10 ml Sucralfate (Carafate) 1 gm PO QIDACANDBED [facility] Last Admin: 11/21/18 11:59 Dose: Not Given - Exam General: Alert, Oriented, Cooperative, No Acute Distress, Other (emaciated) HEENT: Pupils Equal, Pupils Reactive, EOMI. No: Mucous Membr. Moist/[place] Neck: Supple Lungs: Clear to Auscultation, Normal Respiratory Effort, Decreased Breath Sounds Cardiovascular: Regular Rate, Regular Rhythm GI/Abdominal Exam: Normal Bowel Sounds, Soft, Non-Tender, No Organomegaly, No Distention, No Abnormal Bruit (Female) Exam: Deferred Back Exam: Normal Inspection, Decreased Range of Motion Extremities: Normal Range of Motion, Non-Tender, No Pedal Edema, Normal Capillary Refill, Other (bruises all over bilateral lower extremity) Peripheral Pulses: 2+: Posterior Tibial (L), Posterior Tibial (R), Dorsalis Pedis (L), Dorsalis Pedis (R) Skin: Warm, Dry, Intact, Ecchymosis (significant on and below right knee) Neurological: No New Focal Deficit (limited due to significant weakness). No: Normal Gait Psy/Mental Status: Alert, Depressed. 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 Mars - S/p Laparotomy with RAMESH/SBO radical tumor debulking, resection of the terminal ileum and cecum with re-anastomosis, pelvic and para-aortic lymphadenopathy, with ureteral resection and re-anastomosis and placement of venous access port - She follow Dr. Montes in [place] with follow up PET scan for next Sunday - Report from Dr. Uribe's states "patient understand this is incurable" Colonic Ileus - Has nausea, vomiting and abdominal pain - CT scan shows mild colonic ileus - Has Right Colon Cancer with Signet Ring and Diffuse Peritoneal Carcinomatosis - Supportive Care, IV Hydration and PRN Anti-emesis - KUB shows colonic ileus Hypokalemia/Hypomagnesemia/Hypocalcemia, Improved - K of 2.3-->2.4--> 2.9-->3.7; Mg of 1.5--> 1.9-->1.8; Corrected Ca of 7.1--> 6.8--> 6.4 - 2/2 GI Loss - She is not eating or drinking - Replete IV potassium Hypoalbuminemia - Albumin of 2.3 - 2/2 Protein wasting - Dietary consult for weight management Malnutrition - 2/2 Cancer -induced cachexia - BMI of 17.5 - Dietary consult for weight management - Discussed best option with family which is tube feeding - is thinking TPN or infusion - CERTIFIED ENERGY MANAGER cleared her for pureed and normal liquid diet but patient not able to tolerate it Relative Hypotension - 2/2 poor fluid intake - She is not taking any of her maintenance medications - Volume resuscitation - If able to swallow pending CERTIFIED ENERGY MANAGER eval; we will provide PRN Midodrine for hypotension Right Knee Pain - Had obvious bruises on and near right knee - X-ray shows osteopenia with mild arthritis - PRN pain medication and PT/OT to assess and treat End of Life Care - She would benefit with Hospice/Palliative Care - Her sister will be here tomorrow - We will offer this services again in the morning Resolved: Dehydration, Improved - 2/2 poor intake - She is clinically dry - IV fluids and monitor fo urine output Chronic: AR, Glaucoma, Asthma, COPD, Gastritis, GERD, PUD, CKD Stage 3, Diverticulosis, Hx/o Diffuse Cystic Mastopathy, Osteoporosis, Anemia, Ovarian CA , Anxiety, Depression and Malnutrition Plan: She is essentially the same: weak, tired and no energy. She is actively dying at this point. Routine AM Labs DVT/Stroke Prophylaxis Volume resuscitation Dietary consult for weight management RT/RT/OT to assess and treat SW/CM for d/c planning Code status: Full Additional orders as above Overall prognosis is very poor LOS > 96hrs pending discharge care plan from the family Her sister supposed to be here today. We will meet up with the sister and ask for clear directions regarding end of life care.
--- NOTE | 2018-11-23 10:57 | CR ---
Right knee: AP and lateral views of the right knee were obtained. Comparison: No prior knee exam. Very slight medial joint space narrowing is suggested. Lateral joint space is preserved. No joint effusion is seen. No fracture or other bony abnormality is appreciated. Osteopenia is present. Impression: 1. Osteopenia and slight medial joint space narrowing. 2. No additional abnormality is identified on 2 view right knee exam. Diagnostic code #2
--- NOTE | 2018-11-24 07:07 | PCM.PN ---
- General Info Date of Service: 11/24/18 Admission Dx/Problem (Free Text): Admission Diagnosis/Problem Admission Diagnosis/Problem Ileus Subjective Update: Follow Up Functional Status: Reports: Pain Controlled, Urinating. Denies: New Symptoms - Review of Systems General: Denies: Fever, Chills HEENT: Reports: No Symptoms Pulmonary: Denies: Shortness of Breath Cardiovascular: Denies: Chest Pain Gastrointestinal: Denies: Abdominal Pain, Nausea, Vomiting Genitourinary: Reports: No Symptoms Musculoskeletal: Reports: Joint Pain Skin: Denies: Cyanosis, Pruritis Neurological: Denies: Dizziness, Trouble Speaking, Weakness, Gait Disturbance Psychiatric: Denies: Mood Lability, Anxiety, Agitation, Cravings, Suicidal Ideation Systems Review Comment:: Rested well overnight and no complaints. Her pain is controlled. - Patient Data Vitals - Most Recent: Last Vital Signs Temp 36.5 C 11/23/18 19:34 Pulse 93 11/23/18 19:34 Resp 14 11/23/18 19:34 BP 106/61 11/23/18 19:34 Pulse Ox 98 11/23/18 19:34 Weight - Most Recent: 63.14 kg I&O - Last 24 Hours: Intake & Output 11/23/18 11/24/18 11/24/18 22:59 06:59 14:59 Intake Total 1498 Output Total 101 Balance 1397 Lab Results Last 24 Hours: Laboratory Results - last 24 hr 11/23/18 Range/Units 05:06 Sodium 143 (136-145) mEq/L Potassium 3.7 (3.5-5.1) mEq/L Chloride 113 H (98-107) mEq/L Carbon Dioxide 18 L (21-32) mEq/L Anion Gap 15.7 H (5-15) BUN 9 (7-18) mg/dL Creatinine 1.0 (0.55-1.02) mg/dL Est Cr Clr Drug Dosing 51.43 mL/min Estimated GFR (MDRD) 55 (>60) mL/min BUN/Creatinine Ratio 9.0 L (14-18) Glucose 127 H (83-115) mg/dL Calcium 6.4 L (8.5-10.1) mg/dL Magnesium 1.8 (1.8-2.4) mg/dl C-Reactive Protein 5.3 H* (<1.0) mg/dL Vj Results Last 24 Hours: Microbiology 11/20/18 02:09 Urine Culture - Final Urine, Catheterized Klebsiella Pneumoniae Enterococcus Faecalis Med Orders - Current: Current Medications Acetaminophen (Tylenol) 650 mg PO Q4H PRN PRN Reason: Pain (Mild 1-3)/fever Hydrocodone Bitart/Acetaminophen ([place] 325-5 Mg) 1 tab PO Q4H PRN PRN Reason: Pain (moderate 4-6) Albuterol (Proventil Neb Soln) 0.63 mg INH ASDIRECTED PRN PRN Reason: Shortness of Breath Albuterol/Ipratropium (Duoneb 3.0-0.5 Mg/3 Ml) 3 ml NEB Q4H PRN PRN Reason: Shortness Of Breath/wheezing Bisacodyl (Dulcolax) 5 mg PO DAILY PRN PRN Reason: Constipation Dextrose/Water (Dextrose 50% In Water) 25 ml IVPUSH ASDIRECTED PRN PRN Reason: hypoglycemia Last Admin: 11/20/18 11:38 Dose: 25 ml Docusate Sodium (Colace) 100 mg PO BID PRN PRN Reason: Constipation Hydromorphone HCl (Dilaudid) 0.25 mg IVPUSH Q4H PRN PRN Reason: Pain Last Admin: 11/23/18 18:14 Dose: 0.25 mg Promethazine HCl 6.25 mg/ (Sodium Chloride) 50.25 mls @ 100 mls/hr IV Q6H PRN PRN Reason: Nausea/Vomiting Last Admin: 11/20/18 11:25 Dose: 100 mls/hr Lorazepam (Ativan) 0.5 mg IV Q6H PRN PRN Reason: Anxiety Last Admin: 11/22/18 21:23 Dose: 0.5 mg Metoprolol Tartrate (Lopressor) 5 mg IVPUSH Q4H PRN PRN Reason: Tachycardia Last Admin: 11/20/18 22:14 Dose: 5 mg Miscellaneous Information (Remove Patch) 1 ea TRDERM Q72H MAIA Last Admin: 11/22/18 17:22 Dose: 1 ea Ondansetron HCl (Zofran) 4 mg IV Q6H PRN PRN Reason: Nausea/Vomiting Last Admin: 11/23/18 10:20 Dose: 4 mg Ondansetron HCl (Zofran Odt) 4 mg PO Q4H PRN PRN Reason: Nausea Scopolamine (Transderm-Scop) 1.5 mg TRDERM Q72H PRN PRN Reason: Nausea/Vomiting Last Admin: 11/22/18 17:27 Dose: 1.5 mg Senna/Docusate Sodium (Senna Plus) 1 tab PO BID PRN PRN Reason: Constipation Sodium Chloride (Saline Flush) 10 ml FLUSH ASDIRECTED PRN PRN Reason: Keep Vein Open Last Admin: 11/19/18 07:25 Dose: 10 ml Zolpidem Tartrate (Ambien) 5 mg PO BEDTIME PRN PRN Reason: Sleep Discontinued Medications Albuterol/Ipratropium (Duoneb 3.0-0.5 Mg/3 Ml) 3 ml INH TIDRT [facility] Last Admin: 11/23/18 23:59 Dose: Not Given Budesonide (Pulmicort) 0.5 mg INH BIDRT [facility] Last Admin: 11/23/18 23:59 Dose: Not Given Cyanocobalamin (Vitamin B12) 1,000 mcg IM Q14D [facility] Last Admin: 11/20/18 08:21 Dose: Not Given Cyanocobalamin (Vitamin B12) 1,000 mcg IM Q14D [facility] Last Admin: 11/20/18 09:11 Dose: Not Given Denosumab (Prolia) 60 mg SUBCUT ASDIRECTED [facility] Diatrizoate Meglum/Diatrizoate Sod (Gastrografin 37%) 90 ml PO ONETIME ONE Stop: 11/19/18 07:56 Last Admin: 11/19/18 09:21 Dose: 90 ml Diphenhydramine HCl (Benadryl) 50 mg IVPUSH ONETIME ONE Stop: 11/20/18 19:01 Last Admin: 11/20/18 19:08 Dose: 50 mg Diphenhydramine HCl (Benadryl) Confirm Administered Dose 50 mg .ROUTE .STK-MED ONE Stop: 11/20/18 19:08 Last Admin: 11/20/18 20:01 Dose: Not Given Ferrous Sulfate (Ferrous Sulfate) 325 mg PO DAILY [facility] Last Admin: 11/23/18 09:33 Dose: Not Given Fluticasone Propionate (Flonase) 1 - 2 gm NASBOTH DAILY MAIA Last Admin: 11/23/18 09:20 Dose: 1 spray Heparin Sodium (Porcine) (Heparin Sodium) 5,000 units SUBCUT Q8H [facility] Last Admin: 11/23/18 22:40 Dose: Not Given Hydromorphone HCl (Dilaudid) 0.5 mg IVPUSH ONETIME ONE Stop: 11/19/18 07:08 Last Admin: 11/19/18 07:24 Dose: 0.5 mg Sodium Chloride (Normal Saline) 1,000 mls @ 1,000 mls/hr IV .BOLUS STA Stop: 11/19/18 08:05 Last Admin: 11/19/18 07:24 Dose: 1,000 mls/hr Potassium Chloride 10 meq/ (Premix) 100 mls @ 100 mls/hr IV ONETIME ONE Stop: 11/19/18 10:44 Last Admin: 11/19/18 10:21 Dose: 100 mls/hr Sodium Chloride (Normal Saline) Confirm Administered Dose 1,000 mls @ as directed .ROUTE .STK-MED ONE Stop: 11/19/18 10:18 Last Admin: 11/19/18 10:32 Dose: Not Given Sodium Chloride (Normal Saline) 1,000 mls @ 1,000 mls/hr IV ONETIME ONE Stop: 11/19/18 13:53 Last Admin: 11/19/18 13:01 Dose: 1,000 mls/hr Potassium Chloride 10 meq/ (Premix) 100 mls @ 100 mls/hr IV Q1H MAIA Stop: 11/19/18 22:14 Last Admin: 11/20/18 00:49 Dose: 100 mls/hr Sodium Chloride (Normal Saline) 1,000 mls @ 50 mls/hr IV ASDIRECTED [facility] Stop: 11/19/18 23:30 Last Admin: 11/19/18 17:17 Dose: 50 mls/hr Lactated Ringer's (Ringers, Lactated) 1,000 mls @ 999 mls/hr IV .BOLUS ONE Stop: 11/19/18 21:10 Last Admin: 11/19/18 20:21 Dose: 999 mls/hr Lactated Ringer's (Ringers, Lactated) 1,000 mls @ 150 mls/hr IV ASDIRECTED [facility] Last Admin: 11/20/18 04:54 Dose: 150 mls/hr Magnesium Sulfate 2 gm/ Premix 50 mls @ 25 mls/hr IV ONETIME ONE Stop: 11/19/18 23:02 Last Admin: 11/19/18 22:00 Dose: 25 mls/hr Potassium Chloride 10 meq/ (Premix) 100 mls @ 100 mls/hr IV Q1H [facility] Stop: 11/20/18 03:29 Last Admin: 11/20/18 07:05 Dose: 100 mls/hr Dextrose/Lactated Ringer's (Dextrose 5%-Lactated Ringers) 1,000 mls @ 125 mls/ hr IV ASDIRECTED MAIA Dextrose/Lactated Ringer's (Dextrose 5%-Lactated Ringers) 1,000 mls @ 150 mls/ hr IV ASDIRECTED [facility] Last Admin: 11/21/18 21:55 Dose: 150 mls/hr Potassium Chloride 10 meq/ (Premix) 100 mls @ 100 mls/hr IV Q1H [facility] Stop: 11/20/18 18:59 Last Admin: 11/20/18 18:38 Dose: 100 mls/hr Magnesium Sulfate 2 gm/ Premix 50 mls @ 25 mls/hr IV ONETIME ONE Stop: 11/21/18 09:59 Last Admin: 11/21/18 08:12 Dose: 25 mls/hr Potassium Chloride 10 meq/ (Premix) 100 mls @ 100 mls/hr IV Q1H [facility] Stop: 11/21/18 13:59 Last Admin: 11/21/18 13:41 Dose: 100 mls/hr Potassium Chloride/Dextrose/Sod Cl (D5 Ns With 20 Meq Kcl) 1,000 mls @ 125 mls/ hr IV ASDIRECTED [facility] Last Admin: 11/23/18 12:40 Dose: 125 mls/hr Magnesium Sulfate 2 gm/ Premix 50 mls @ 25 mls/hr IV ONETIME ONE Stop: 11/22/18 09:59 Last Admin: 11/22/18 08:47 Dose: 25 mls/hr Potassium Chloride 10 meq/ (Premix) 100 mls @ 100 mls/hr IV NOW STA Stop: 11/22/18 08:45 Last Admin: 11/22/18 08:47 Dose: 100 mls/hr Potassium Chloride 10 meq/ (Premix) 100 mls @ 100 mls/hr IV Q1H [facility] Stop: 11/22/18 16:59 Last Admin: 11/22/18 17:21 Dose: 100 mls/hr Iopamidol (Isovue-300 (61%)) 100 ml IVPUSH ONETIME ONE Stop: 11/19/18 07:56 Last Admin: 11/19/18 15:21 Dose: Not Given Latanoprost (Xalatan 0.005% Ophth Soln) 0 ml EYEBOTH DAILY [facility] Last Admin: 11/23/18 09:20 Dose: 1 drop Lorazepam (Ativan) 0.25 mg IV Q6H PRN PRN Reason: Anxiety Last Admin: 11/20/18 08:17 Dose: 0.25 mg Lorazepam (Ativan) 0.25 mg IVPUSH ONETIME ONE Stop: 11/20/18 11:51 Last Admin: 11/20/18 11:50 Dose: 0.25 mg Metoclopramide HCl (Reglan) 10 mg IVPUSH Q6H PRN PRN Reason: Nausea/Vomiting Last Admin: 11/20/18 04:56 Dose: 10 mg Metoclopramide HCl (Reglan) 10 mg IVPUSH Q6H [facility] Last Admin: 11/23/18 23:29 Dose: 10 mg Metoprolol Tartrate (Lopressor) 25 mg PO Q12H [facility] Last Admin: 11/22/18 21:24 Dose: Not Given Midodrine (Midodrine) 10 mg PO TID PRN PRN Reason: Hypotension Last Admin: 11/22/18 12:56 Dose: 10 mg Mometasone Furoate/Formoterol Fumar (Dulera 200-5 Mcg) 2 puff IH DAILY [facility] Mometasone Furoate/Formoterol Fumar (Dulera 200-5 Mcg) 2 puff IH DAILY@0600 [facility] Last Admin: 11/23/18 06:16 Dose: Not Given Ondansetron HCl (Zofran) 4 mg IVPUSH ONETIME ONE Stop: 11/19/18 07:07 Last Admin: 11/19/18 07:24 Dose: 4 mg Pantoprazole Sodium (Protonix Iv) 40 mg IVPUSH Q12H [facility] Last Admin: 11/23/18 17:40 Dose: Not Given Potassium Chloride (Klor-Con M20) 60 meq PO ONETIME ONE Stop: 11/19/18 20:42 Last Admin: 11/20/18 08:54 Dose: Not Given Promethazine HCl (Phenergan) Confirm Administered Dose 25 mg .ROUTE .STK-MED ONE Stop: 11/23/18 10:18 Last Admin: 11/23/18 10:21 Dose: Not Given Sodium Chloride (Saline Flush) 10 ml FLUSH ONETIME ONE Stop: 11/19/18 07:56 Last Admin: 11/19/18 10:21 Dose: 10 ml Sucralfate (Carafate) 1 gm PO QIDACANDBED [facility] Last Admin: 11/21/18 11:59 Dose: Not Given - Exam General: Alert, Oriented, Cooperative, No Acute Distress HEENT: Pupils Equal, Pupils Reactive, EOMI Neck: Supple Lungs: Normal Respiratory Effort, Decreased Breath Sounds Cardiovascular: Regular Rate, Regular Rhythm GI/Abdominal Exam: Normal Bowel Sounds, Soft, Non-Tender, No Organomegaly, No Distention, No Abnormal Bruit, No Mass, Pelvis Stable (Female) Exam: Deferred Back Exam: Normal Inspection, Decreased Range of Motion Extremities: Normal Inspection, Normal Range of Motion, Non-Tender, Normal Capillary Refill, Other (abdominal and b/l lower etxremity significant edema) Peripheral Pulses: 1+: Dorsalis Pedis (L), Dorsalis Pedis (R) Skin: Warm, Dry, Intact, Ecchymosis Neurological: Other (deferred: she is very weak and at this point not really appropriate). No: Normal Gait Psy/Mental Status: Alert, Depressed. 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 Mars - S/p Laparotomy with RAMESH/SBO radical tumor debulking, resection of the terminal ileum and cecum with re-anastomosis, pelvic and para-aortic lymphadenopathy, with ureteral resection and re-anastomosis and placement of venous access port - She follow Dr. Montes in [place] with follow up PET scan for next Sunday - Report from Dr. Uribe's states "patient understand this is incurable" Colonic Ileus - Has nausea, vomiting and abdominal pain - CT scan shows mild colonic ileus - Has Right Colon Cancer with Signet Ring and Diffuse Peritoneal Carcinomatosis - Supportive Care, IV Hydration and PRN Anti-emesis - KUB shows colonic ileus Hypokalemia/Hypomagnesemia/Hypocalcemia, Improved - K of 2.3-->2.4--> 2.9-->3.7; Mg of 1.5--> 1.9-->1.8; Corrected Ca of 7.1--> 6.8--> 6.4 - 2/2 GI Loss - She is not eating or drinking - Replete IV potassium Hypoalbuminemia - Albumin of 2.3 - 2/2 Protein wasting - Dietary consult for weight management Malnutrition - 2/2 Cancer -induced cachexia - BMI of 17.5 - Dietary consult for weight management - Discussed best option with family which is tube feeding - is thinking TPN or infusion - [employer]ATOR cleared her for pureed and normal liquid diet but patient not able to tolerate it Relative Hypotension - 2/2 poor fluid intake - She is not taking any of her maintenance medications - Volume resuscitation - If able to swallow pending [employer]IT OPERATOR eval; we will provide PRN Midodrine for hypotension Right Knee Pain - Had obvious bruises on and near right knee - X-ray shows osteopenia with mild arthritis - PRN pain medication and PT/OT to assess and treat End of Life Care - On Comfort Measures - Hospice/Palliative Care consult in AM Resolved: Dehydration, Improved - 2/2 poor intake - She is clinically dry - IV fluids and monitor fo urine output Chronic: AR, Glaucoma, Asthma, COPD, Gastritis, GERD, PUD, CKD Stage 3, Diverticulosis, Hx/o Diffuse Cystic Mastopathy, Osteoporosis, Anemia, Ovarian CA , Anxiety, Depression and Malnutrition Plan: She is essentially the same. She is now on comfort measures DVT/Stroke Prophylaxis Dietary consult for weight management RT/RT/OT to assess and treat SW/CM for d/c planning Code status: DNR/DNI/Comfort Measures Overall prognosis is very poor Possible discharge in AM
[2018-11-24] MEDS ORDERED: Furosemide 20 MG/2 ML VIAL IVPUSH ONE (10:22)
[2018-11-24] MEDS: Ondansetron 4 MG/2 ML SDV IV PRN ×3 (10:25→21:11)
[2018-11-24] MEDS: HYDROmorphone 0.5 MG/0.5 ML Syringe IVPUSH PRN (12:00)
[2018-11-24] MEDS: Metoclopramide 10 MG/2 ML SDV IVPUSH PRN (18:04)
[2018-11-24] MEDS: Promethazine 6.25 MG in Sodium Chloride 0.9% 50 ML IV PRN (23:46)
[2018-11-25] MEDS: Metoclopramide 10 MG/2 ML SDV IVPUSH PRN ×3 (04:52→19:09)
[2018-11-25] MEDS: HYDROmorphone 0.5 MG/0.5 ML Syringe IVPUSH PRN ×3 (05:00→22:00)
[2018-11-25] MEDS: LORazepam 2 MG/ML SDV IV PRN ×2 (07:47→21:58)
[2018-11-25] MEDS: Ondansetron 4 MG/2 ML SDV IV PRN ×3 (07:47→21:59)
--- NOTE | 2018-11-25 08:22 | CT ---
CT abdomen and pelvis Technique: Multiple axial sections were obtained from above the dome of the diaphragm inferiorly through the pubic symphysis. Intravenous and oral contrast not utilized which diminishes details of the exam. Comparison: Prior CT abdomen and pelvis exam of 11/19/18. Findings: Small bilateral pleural effusions are seen which are an interval change from previous exam. Small hiatal hernia is noted. Ascites is seen which has increased in amount from previous exam. Liver shows no focal abnormality although evaluation is somewhat limited due to artifact from the patient's arms. Spleen shows no discrete abnormality. Adrenal glands show no discrete nodule. Pancreas shows no discrete abnormality. Aorta shows atherosclerotic calcification which continues into the iliac vessels. No aneurysm is appreciated. No retroperitoneal adenopathy is seen. No mesenteric abnormalities are appreciated. Stable appearing cystic lesion of uncertain etiology is seen posterior to the bladder measuring about 3.1 cm in size on current study. Fluid and air are noted within the dilated colon. Anastomotic sutures are seen within the cecum. Dilated colon is seen down to the sigmoid region with no discrete etiology for the change in caliber. Findings are fairly stable from previous exam. Diffuse body wall edema is noted which is increased in amount from previous exam. Appendix is not seen. Bone window settings were reviewed which show mild diffuse degenerative change throughout the spine with mild scoliosis. Impression: 1. Dilated colon with fluid and air. Dilatation occurs down to the sigmoid colon. No etiology is seen for the transition in caliber at the descending and sigmoid junction. This finding is similar to previous exam. 2. Small amount of increased ascites is seen which has increased from previous exam. 3. Small bilateral pleural effusions also increased in amount from previous exam. 4. Body wall edema is noted and also increased from prior study. Diagnostic code #3 MTDD
--- NOTE | 2018-11-25 12:13 | PCM.PN ---
- General Info Date of Service: 11/25/18 Admission Dx/Problem (Free Text): Admission Diagnosis/Problem Admission Diagnosis/Problem Ileus Subjective Update: Follow Up Functional Status: Reports: Pain Controlled, Urinating - Review of Systems General: Reports: Weakness, Fatigue, Malaise. Denies: Fever, Chills HEENT: Reports: No Symptoms Pulmonary: Denies: Shortness of Breath Cardiovascular: Denies: Chest Pain, Dyspnea on Exertion, Lightheadedness Gastrointestinal: Denies: Abdominal Pain, Nausea, Vomiting Genitourinary: Reports: No Symptoms Musculoskeletal: Reports: Leg Pain Skin: Reports: Bruising. Denies: Mottled, Pallor, Diaphoresis, Rash Neurological: Reports: Difficulty Walking, Weakness, Gait Disturbance. Denies: Confusion Psychiatric: Denies: Depression, Anxiety, Agitation, Hallucinations Systems Review Comment:: No overnight or acute issues. She is comfortable and pain is controlled. - Patient Data Vitals - Most Recent: Last Vital Signs Temp 36.9 C 11/25/18 08:33 Pulse 92 11/25/18 08:33 Resp 16 11/25/18 08:33 BP 106/69 11/25/18 08:33 Pulse Ox 97 11/25/18 08:33 Weight - Most Recent: 63.14 kg Med Orders - Current: Current Medications Acetaminophen (Tylenol) 650 mg PO Q4H PRN PRN Reason: Pain (Mild 1-3)/fever Hydrocodone Bitart/Acetaminophen ([place] 325-5 Mg) 1 tab PO Q4H PRN PRN Reason: Pain (moderate 4-6) Albuterol (Proventil Neb Soln) 0.63 mg INH ASDIRECTED PRN PRN Reason: Shortness of Breath Albuterol/Ipratropium (Duoneb 3.0-0.5 Mg/3 Ml) 3 ml NEB Q4H PRN PRN Reason: Shortness Of Breath/wheezing Bisacodyl (Dulcolax) 5 mg PO DAILY PRN PRN Reason: Constipation Dextrose/Water (Dextrose 50% In Water) 25 ml IVPUSH ASDIRECTED PRN PRN Reason: hypoglycemia Last Admin: 11/20/18 11:38 Dose: 25 ml Docusate Sodium (Colace) 100 mg PO BID PRN PRN Reason: Constipation Hydromorphone HCl (Dilaudid) 0.25 mg IVPUSH Q4H PRN PRN Reason: Pain Last Admin: 11/25/18 05:00 Dose: 0.25 mg Promethazine HCl 6.25 mg/ (Sodium Chloride) 50.25 mls @ 100 mls/hr IV Q6H PRN PRN Reason: Nausea/Vomiting Last Admin: 11/24/18 23:46 Dose: 100 mls/hr Lorazepam (Ativan) 0.5 mg IV Q6H PRN PRN Reason: Anxiety Last Admin: 11/25/18 07:47 Dose: 0.5 mg Metoclopramide HCl (Reglan) 10 mg IVPUSH Q6H PRN PRN Reason: Nausea/Vomiting Last Admin: 11/25/18 04:52 Dose: 10 mg Metoprolol Tartrate (Lopressor) 5 mg IVPUSH Q4H PRN PRN Reason: Tachycardia Last Admin: 11/20/18 22:14 Dose: 5 mg Miscellaneous Information (Remove Patch) 1 ea TRDERM Q72H [facility] Last Admin: 11/22/18 17:22 Dose: 1 ea Ondansetron HCl (Zofran) 4 mg IV Q6H PRN PRN Reason: Nausea/Vomiting Last Admin: 11/25/18 07:47 Dose: 4 mg Ondansetron HCl (Zofran Odt) 4 mg PO Q4H PRN PRN Reason: Nausea Scopolamine (Transderm-Scop) 1.5 mg TRDERM Q72H PRN PRN Reason: Nausea/Vomiting Last Admin: 11/22/18 17:27 Dose: 1.5 mg Senna/Docusate Sodium (Senna Plus) 1 tab PO BID PRN PRN Reason: Constipation Sodium Chloride (Saline Flush) 10 ml FLUSH ASDIRECTED PRN PRN Reason: Keep Vein Open Last Admin: 11/19/18 07:25 Dose: 10 ml Zolpidem Tartrate (Ambien) 5 mg PO BEDTIME PRN PRN Reason: Sleep Discontinued Medications Albuterol/Ipratropium (Duoneb 3.0-0.5 Mg/3 Ml) 3 ml INH TIDRT [facility] Last Admin: 11/23/18 23:59 Dose: Not Given Budesonide (Pulmicort) 0.5 mg INH BIDRT [facility] Last Admin: 11/23/18 23:59 Dose: Not Given Cyanocobalamin (Vitamin B12) 1,000 mcg IM Q14D [facility] Last Admin: 11/20/18 08:21 Dose: Not Given Cyanocobalamin (Vitamin B12) 1,000 mcg IM Q14D [facility] Last Admin: 11/20/18 09:11 Dose: Not Given Denosumab (Prolia) 60 mg SUBCUT ASDIRECTED [facility] Diatrizoate Meglum/Diatrizoate Sod (Gastrografin 37%) 90 ml PO ONETIME ONE Stop: 11/19/18 07:56 Last Admin: 11/19/18 09:21 Dose: 90 ml Diphenhydramine HCl (Benadryl) 50 mg IVPUSH ONETIME ONE Stop: 11/20/18 19:01 Last Admin: 11/20/18 19:08 Dose: 50 mg Diphenhydramine HCl (Benadryl) Confirm Administered Dose 50 mg .ROUTE .STK-MED ONE Stop: 11/20/18 19:08 Last Admin: 11/20/18 20:01 Dose: Not Given Ferrous Sulfate (Ferrous Sulfate) 325 mg PO DAILY [facility] Last Admin: 11/23/18 09:33 Dose: Not Given Fluticasone Propionate (Flonase) 1 - 2 gm NASBOTH DAILY [facility] Last Admin: 11/23/18 09:20 Dose: 1 spray Furosemide (Lasix) 10 mg IVPUSH NOW ONE Stop: 11/24/18 10:23 Last Admin: 11/24/18 10:49 Dose: 10 mg Heparin Sodium (Porcine) (Heparin Sodium) 5,000 units SUBCUT Q8H [facility] Last Admin: 11/23/18 22:40 Dose: Not Given Hydromorphone HCl (Dilaudid) 0.5 mg IVPUSH ONETIME ONE Stop: 11/19/18 07:08 Last Admin: 11/19/18 07:24 Dose: 0.5 mg Sodium Chloride (Normal Saline) 1,000 mls @ 1,000 mls/hr IV .BOLUS STA Stop: 11/19/18 08:05 Last Admin: 11/19/18 07:24 Dose: 1,000 mls/hr Potassium Chloride 10 meq/ (Premix) 100 mls @ 100 mls/hr IV ONETIME ONE Stop: 11/19/18 10:44 Last Admin: 11/19/18 10:21 Dose: 100 mls/hr Sodium Chloride (Normal Saline) Confirm Administered Dose 1,000 mls @ as directed .ROUTE .STK-MED ONE Stop: 11/19/18 10:18 Last Admin: 11/19/18 10:32 Dose: Not Given Sodium Chloride (Normal Saline) 1,000 mls @ 1,000 mls/hr IV ONETIME ONE Stop: 11/19/18 13:53 Last Admin: 11/19/18 13:01 Dose: 1,000 mls/hr Potassium Chloride 10 meq/ (Premix) 100 mls @ 100 mls/hr IV Q1H [facility] Stop: 11/19/18 22:14 Last Admin: 11/20/18 00:49 Dose: 100 mls/hr Sodium Chloride (Normal Saline) 1,000 mls @ 50 mls/hr IV ASDIRECTED [facility] Stop: 11/19/18 23:30 Last Admin: 11/19/18 17:17 Dose: 50 mls/hr Lactated Ringer's (Ringers, Lactated) 1,000 mls @ 999 mls/hr IV .BOLUS ONE Stop: 11/19/18 21:10 Last Admin: 11/19/18 20:21 Dose: 999 mls/hr Lactated Ringer's (Ringers, Lactated) 1,000 mls @ 150 mls/hr IV ASDIRECTED [facility] Last Admin: 11/20/18 04:54 Dose: 150 mls/hr Magnesium Sulfate 2 gm/ Premix 50 mls @ 25 mls/hr IV ONETIME ONE Stop: 11/19/18 23:02 Last Admin: 11/19/18 22:00 Dose: 25 mls/hr Potassium Chloride 10 meq/ (Premix) 100 mls @ 100 mls/hr IV Q1H [facility] Stop: 11/20/18 03:29 Last Admin: 11/20/18 07:05 Dose: 100 mls/hr Dextrose/Lactated Ringer's (Dextrose 5%-Lactated Ringers) 1,000 mls @ 125 mls/ hr IV ASDIRECTED [facility] Dextrose/Lactated Ringer's (Dextrose 5%-Lactated Ringers) 1,000 mls @ 150 mls/ hr IV ASDIRECTED [facility] Last Admin: 11/21/18 21:55 Dose: 150 mls/hr Potassium Chloride 10 meq/ (Premix) 100 mls @ 100 mls/hr IV Q1H [facility] Stop: 11/20/18 18:59 Last Admin: 11/20/18 18:38 Dose: 100 mls/hr Magnesium Sulfate 2 gm/ Premix 50 mls @ 25 mls/hr IV ONETIME ONE Stop: 11/21/18 09:59 Last Admin: 11/21/18 08:12 Dose: 25 mls/hr Potassium Chloride 10 meq/ (Premix) 100 mls @ 100 mls/hr IV Q1H [facility] Stop: 11/21/18 13:59 Last Admin: 11/21/18 13:41 Dose: 100 mls/hr Potassium Chloride/Dextrose/Sod Cl (D5 Ns With 20 Meq Kcl) 1,000 mls @ 125 mls/ hr IV ASDIRECTED [facility] Last Admin: 11/23/18 12:40 Dose: 125 mls/hr Magnesium Sulfate 2 gm/ Premix 50 mls @ 25 mls/hr IV ONETIME ONE Stop: 11/22/18 09:59 Last Admin: 11/22/18 08:47 Dose: 25 mls/hr Potassium Chloride 10 meq/ (Premix) 100 mls @ 100 mls/hr IV NOW STA Stop: 11/22/18 08:45 Last Admin: 11/22/18 08:47 Dose: 100 mls/hr Potassium Chloride 10 meq/ (Premix) 100 mls @ 100 mls/hr IV Q1H [facility] Stop: 11/22/18 16:59 Last Admin: 11/22/18 17:21 Dose: 100 mls/hr Iopamidol (Isovue-300 (61%)) 100 ml IVPUSH ONETIME ONE Stop: 11/19/18 07:56 Last Admin: 11/19/18 15:21 Dose: Not Given Latanoprost (Xalatan 0.005% Ophth Soln) 0 ml EYEBOTH DAILY [facility] Last Admin: 11/23/18 09:20 Dose: 1 drop Lorazepam (Ativan) 0.25 mg IV Q6H PRN PRN Reason: Anxiety Last Admin: 11/20/18 08:17 Dose: 0.25 mg Lorazepam (Ativan) 0.25 mg IVPUSH ONETIME ONE Stop: 11/20/18 11:51 Last Admin: 11/20/18 11:50 Dose: 0.25 mg Metoclopramide HCl (Reglan) 10 mg IVPUSH Q6H PRN PRN Reason: Nausea/Vomiting Last Admin: 11/20/18 04:56 Dose: 10 mg Metoclopramide HCl (Reglan) 10 mg IVPUSH Q6H [facility] Last Admin: 11/23/18 23:29 Dose: 10 mg Metoprolol Tartrate (Lopressor) 25 mg PO Q12H [facility] Last Admin: 11/22/18 21:24 Dose: Not Given Midodrine (Midodrine) 10 mg PO TID PRN PRN Reason: Hypotension Last Admin: 11/22/18 12:56 Dose: 10 mg Mometasone Furoate/Formoterol Fumar (Dulera 200-5 Mcg) 2 puff IH DAILY [facility] Mometasone Furoate/Formoterol Fumar (Dulera 200-5 Mcg) 2 puff IH DAILY@0600 [facility] Last Admin: 11/23/18 06:16 Dose: Not Given Ondansetron HCl (Zofran) 4 mg IVPUSH ONETIME ONE Stop: 11/19/18 07:07 Last Admin: 11/19/18 07:24 Dose: 4 mg Pantoprazole Sodium (Protonix Iv) 40 mg IVPUSH Q12H [facility] Last Admin: 11/23/18 17:40 Dose: Not Given Potassium Chloride (Klor-Con M20) 60 meq PO ONETIME ONE Stop: 11/19/18 20:42 Last Admin: 11/20/18 08:54 Dose: Not Given Promethazine HCl (Phenergan) Confirm Administered Dose 25 mg .ROUTE .STK-MED ONE Stop: 11/23/18 10:18 Last Admin: 11/23/18 10:21 Dose: Not Given Sodium Chloride (Saline Flush) 10 ml FLUSH ONETIME ONE Stop: 11/19/18 07:56 Last Admin: 11/19/18 10:21 Dose: 10 ml Sucralfate (Carafate) 1 gm PO QIDACANDBED [facility] Last Admin: 11/21/18 11:59 Dose: Not Given - Exam General: Alert, Oriented, Cooperative, Sedated, Other (emaciated) HEENT: EOMI, Mucous Membr. Moist/[place] Neck: Supple Lungs: Clear to Auscultation, Normal Respiratory Effort Cardiovascular: Regular Rate, Regular Rhythm GI/Abdominal Exam: Normal Bowel Sounds, Soft, Non-Tender, No Organomegaly, No Distention, No Abnormal Bruit, No Mass (Female) Exam: Deferred Back Exam: Normal Inspection, Decreased Range of Motion Extremities: Normal Inspection, Normal Range of Motion, Non-Tender, No Pedal Edema, Normal Capillary Refill Peripheral Pulses: 2+: Dorsalis Pedis (L), Dorsalis Pedis (R) Skin: Warm, Dry, Intact Neurological: No New Focal Deficit (not appropriate due to generalized weakness) . 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 Mars - S/p Laparotomy with RAMESH/SBO radical tumor debulking, resection of the terminal ileum and cecum with re-anastomosis, pelvic and para-aortic lymphadenopathy, with ureteral resection and re-anastomosis and placement of venous access port - She follow Dr. Montes in [place] with follow up PET scan for next Sunday - Report from Dr. Uribe's states "patient understand this is incurable" Colonic Ileus - Has nausea, vomiting and abdominal pain - CT scan shows mild colonic ileus - Has Right Colon Cancer with Signet Ring and Diffuse Peritoneal Carcinomatosis - Supportive Care, IV Hydration and PRN Anti-emesis - KUB shows colonic ileus Hypokalemia/Hypomagnesemia/Hypocalcemia, Improved - K of 2.3-->2.4--> 2.9-->3.7; Mg of 1.5--> 1.9-->1.8; Corrected Ca of 7.1--> 6.8--> 6.4 - 2/2 GI Loss - She is not eating or drinking - Replete IV potassium Hypoalbuminemia - Albumin of 2.3 - 2/2 Protein wasting - Dietary consult for weight management Malnutrition - 2/2 Cancer -induced cachexia - BMI of 17.5 - Dietary consult for weight management - Discussed best option with family which is tube feeding - is thinking TPN or infusion - FIRE ENGINE OPERATOR cleared her for pureed and normal liquid diet but patient not able to tolerate it Relative Hypotension - 2/2 poor fluid intake - She is not taking any of her maintenance medications - Volume resuscitation - If able to swallow pending FIRE ENGINE OPERATOR eval; we will provide PRN Midodrine for hypotension Right Knee Pain - Had obvious bruises on and near right knee - X-ray shows osteopenia with mild arthritis - PRN pain medication and PT/OT to assess and treat End of Life Care - Family rescinded her code status to DNR/DNI with Treatment - Today they informed me they would like to pursue treatment to include PEG tube - Not sure if they are receptive to Hospice/Palliative Care Resolved: Dehydration, Improved - 2/2 poor intake - She is clinically dry - IV fluids and monitor fo urine output Chronic: AR, Glaucoma, Asthma, COPD, Gastritis, GERD, PUD, CKD Stage 3, Diverticulosis, Hx/o Diffuse Cystic Mastopathy, Osteoporosis, Anemia, Ovarian CA , Anxiety, Depression and Malnutrition Plan: She is essentially the same. All her symptoms at this point are cancer related DVT/Stroke Prophylaxis Dietary consult for weight management RT/RT/OT to assess and treat SW/CM for d/c planning Code status: DNR/DNI/Comfort Measures Consult for PEG Tube evaluation and possible placement Overall prognosis is very poor but family has unrealistic expectations. We will wait input from her cancer provider.
--- NOTE | 2018-11-25 15:45 | PCM.CONS ---
H&P History of Present Illness - General Date of Service: 11/25/18 Admit Problem/Dx: Admission Diagnosis/Problem Admission Diagnosis/Problem Ileus Source of Information: Patient - History of Present Illness Initial Comments - Free Text/Narative: Pt is a 73 y/o lady who presents with metastatic colon cancer. Currently she is experiencing persistent nausea and vomiting. She is not tolerating much PO because of the nausea and vomiting. Consult placed for discussion of PEG tube for feeding access. Pt states that her goals of care are to reduce the nausea and vomiting, and also to reduce her anxiety. She is not sure if she would like to have the PEG tube placed. states he was interested in the PEG tube because he thought more nutrition would correct her electrolyte abnormalities. Additional family is questioning if metastatic cancer is what is causing her current symptoms. Abdominal Pain Score (Numeric/FACES): 4 - Related Data Allergies/Adverse Reactions: Allergies Allergy/AdvReac Type Severity Reaction Status Date / Time No Known Allergies Allergy Verified 11/19/18 05:54 Home Medications: Home Meds Albuterol Sulfate 1 puff INH ASDIRECTED PRN 11/18/13 [History] Albuterol/Ipratropium [DuoNeb 3.0-0.5 MG/3 ML] 3 ml INH TID 10/18/15 [History] Budesonide [Pulmicort] 1 dose INH BID 10/18/15 [History] Cyanocobalamin (Vitamin B-12) [Vitamin B-12] 1,000 mcg INJECT Q14D 10/18/15 [ History] Denosumab [Prolia] 60 mg SUBCUT ASDIRECTED 10/18/15 [History] Ferrous Sulfate [Iron] 1 tab PO DAILY 11/15/17 [History] Fluticasone Propionate [Flonase] 1 - 2 spray NASBOTH DAILY 11/15/17 [History] Fluticasone/Vilanterol [Breo Ellipta 200-25 Mcg INH] 1 puff INH DAILY 11/15/17 [ History] Latanoprost 1 drop EYEBOTH DAILY 11/15/17 [History] Ondansetron [Ondansetron ODT] 4 mg PO Q4H PRN 11/15/17 [History] Sucralfate [Carafate] 1 gm PO QIDACANDBED 11/19/18 [History] Past Medical History HEENT History: Reports: Allergic Rhinitis, Glaucoma, Sinusitis Cardiovascular History: Reports: Hypertension Respiratory History: Reports: Asthma, COPD Gastrointestinal History: Reports: Colon Polyp, Gastritis, GERD, Other (See Below) Other Gastrointestinal History: esophagitis, duodenitis, diverticulosis Genitourinary History: Reports: None 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 (See Below) Other OB/BYN History: diffuse cystic mastopathy, breast surgery Musculoskeletal History: Reports: Osteoporosis Neurological History: Reports: None Psychiatric History: Reports: Anxiety, Depression Endocrine/Metabolic History: Reports: Osteoporosis Hematologic History: Reports: Anemia, Other (See Below) Other Hematologic History: pernicious anemia Immunologic History: Reports: None Oncologic (Cancer) History: Reports: Ovarian Other Oncologic History: colon CA Dermatologic History: Reports: None - Past Surgical History Head Surgeries/Procedures: Reports: None HEENT Surgical History: Reports: Adenoidectomy, Cataract Surgery, Laser Surgery , Oral Surgery, Tonsillectomy Respiratory Surgical History: Reports: None GI Surgical History: Reports: Colonoscopy, EGD, Polypectomy Female Surgical History: Reports: Breast Biopsy Endocrine Surgical History: Reports: None Neurological Surgical History: Reports: None Musculoskeletal Surgical History: Reports: None Oncologic Surgical History: Reports: Biopsy of Breast Dermatological Surgical History: Reports: None Social & Family History - Family History Cardiac: Reports: Heart Failure, [place] Respiratory: Reports: Asthma, COPD Oncologic: Reports: Breast, Leukemia, Uterine - Tobacco Use Smoking Status *Q: Former Smoker Used Tobacco, but Quit: Yes Month/Year Tobacco Last Used: may Second Hand Smoke Exposure: Yes - Caffeine Use Caffeine Use: Reports: Coffee - Recreational Drug Use Recreational Drug Use: No - Living Situation & Occupation Living situation: Reports: H&P Review of Systems - Review of Systems: Review Of Systems: See Below General: Reports: Weight Loss Gastrointestinal: Reports: Abdominal Pain, Diarrhea, Nausea, Vomiting Exam - Exam Exam: See Below - Vital Signs Vital Signs: Last Vital Signs Temp 36.9 C 11/25/18 08:33 Pulse 92 11/25/18 08:33 Resp 16 11/25/18 08:33 BP 106/69 11/25/18 08:33 Pulse Ox 97 11/25/18 08:33 Weight: 63.14 kg - Exam Quality Assessment: No: Supplemental Oxygen General: Alert HEENT: EOMI Neck: Supple Lungs: Normal Respiratory Effort GI/Abdominal Exam: Soft, Non-Tender, No Distention Extremities: Pedal Edema Peripheral Pulses: 2+: Dorsalis Pedis (L), Dorsalis Pedis (R) Skin: Warm, Dry, Intact - Patient Data Result Diagrams: 11/23/18 05:06 11/23/18 05:06 Consult PN Assessment/Plan Procedures: Procedures ASSAY OF LIPASE (09/12/18) ASSAY OF MAGNESIUM (06/02/18) BL SMEAR W/DIFF WBC COUNT (10/24/18) C-REACTIVE PROTEIN (09/12/18) CARCINOEMBRYONIC ANTIGEN (05/27/18) CATARACT SURG W/IOL 1 STAGE (11/20/13) COLONOSCOPY AND BIOPSY (10/19/15) COLONOSCOPY W/LESION REMOVAL (11/15/15) COMPLETE CBC AUTOMATED (10/24/18) COMPREHEN METABOLIC PANEL (10/24/18) CT ABD & PELV W/CONTRAST (09/12/18) DIAGNOSTIC SIGMOIDOSCOPY (09/25/16) DXA BONE DENSITY AXIAL (10/11/16) EGD BIOPSY SINGLE/MULTIPLE (10/19/15) EMERGENCY DEPT VISIT (10/24/18) EMERGENCY DEPT VISIT (10/07/18) EMERGENCY DEPT VISIT (09/30/18) EMERGENCY DEPT VISIT (09/19/18) EMERGENCY DEPT VISIT (09/12/18) EMERGENCY DEPT VISIT (08/24/18) EMERGENCY DEPT VISIT (06/02/18) EVALUATE PT USE OF INHALER (11/15/15) HYDRATE IV INFUSION ADD-ON (10/24/18) HYDRATION IV INFUSION INIT (09/12/18) IMMUNOASSAY TUMOR CA 125 (05/27/18) IMMUNOASSAY TUMOR CA 19-9 (05/27/18) MICROBE SUSCEPTIBLE GURMEET (08/24/18) MRI LUMBAR SPINE W/O DYE (08/20/17) OFFICE/OUTPATIENT VISIT NEW (05/27/18) RBC SED RATE AUTOMATED (06/02/18) ROUTINE VENIPUNCTURE (10/24/18) SIGMOIDOSCOPY AND BIOPSY (11/16/17) THER/PROPH/DIAG INJ IV PUSH (10/24/18) TISSUE EXAM BY PATHOLOGIST (11/15/15) TX/PRO/DX INJ NEW DRUG ADDON (06/02/18) URINALYSIS AUTO W/SCOPE (10/24/18) URINE BACTERIA CULTURE (08/24/18) URINE CULTURE/COLONY COUNT (09/03/18) US URINE CAPACITY MEASURE (06/02/18) X-RAY EXAM ABDOMEN 1 VIEW (09/30/18) X-RAY EXAM ABDOMEN 2 VIEWS (10/24/18) (1) Colon cancer metastasized to multiple sites SNOMED Code(s): 265128645, 815179995 Code(s): C18.9 - MALIGNANT NEOPLASM OF COLON, UNSPECIFIED Current Visit: Yes (2) Nausea & vomiting SNOMED Code(s): 04669294 Code(s): R11.2 - NAUSEA WITH VOMITING, UNSPECIFIED Priority: High Current Visit: Yes Qualifiers: Vomiting type: unspecified Vomiting Intractability: non-intractable Qualified Code(s): R11.2 - Nausea with vomiting, unspecified Problem List Initiated/Reviewed/Updated: Yes Plan: 73 y/o female with colon cancer, metastasis noted to ovary and peritoneal carcinomatosis at the time of surgery May 2018 - Pt not tolerating much PO due to persistent nausea and vomiting despite treatment with multiple antiemetics. We discussed that gastric feedings would not decrease the nausea and vomiting, and may make it worse - Discussed that increased nutrition via tube feedings may not make any significant change to her weight due to the presence of the metastasized cancer. - Informed the patient that the PEG would not decrease or improve her anxiety. Lengthy discussion was held with the patient and her , son, sister and [id number]. Reiterated that the patient has a diagnosis of colon cancer that had peritoneal carcinomatosis that was diagnosed at the initial surgery, and that this will continue to grow even though it was not visible on imaging at the time of her last scans. She has not had chemotherapy to address any residual tumor. In addition, Dr. Montes's (oncologist) note from her most recent visit in August 2018 was shared with the family, where he stated that the cancer was not curable and that the patient was aware of this. Family still questioning if nothing else can be done. I explained that there are no surgical options at this point, and that radiation would not be appropriate. I shared with the family that I am not aware of any additional treatment options, but that I cannot speak to all of the Oncologic treatments since that is outside my specialty. Discussed that if they wish to pursue consultation with an oncologist, that transfer would be necessary to [place]. Also discussed that facilitation of transfer would require an accepting physician to agree to admission, and this may be difficult to do. Family was undecided at this time if they would like to pursue transfer. Family does not wish to have PEG tube placed at this time. Ella Sanches MD General surgery
[2018-11-25] MEDS: Scopolamine 1.5 MG Transdermal Patch TRDERM PRN (16:47)
[2018-11-25] MEDS ORDERED: Bisacodyl 10 MG Supp RECTAL ONE (18:39)
[2018-11-26] MEDS: Metoclopramide 10 MG/2 ML SDV IVPUSH PRN ×2 (06:34→16:36)
[2018-11-26] MEDS: HYDROmorphone 0.5 MG/0.5 ML Syringe IVPUSH PRN ×2 (06:42→14:07)
--- NOTE | 2018-11-26 09:03 | PCM.PN ---
- General Info Date of Service: 11/26/18 Admission Dx/Problem (Free Text): Admission Diagnosis/Problem Admission Diagnosis/Problem Ileus Subjective Update: Follow Up Functional Status: Reports: Pain Controlled, Urinating. Denies: New Symptoms - Review of Systems General: Denies: Fever, Chills HEENT: Reports: No Symptoms Pulmonary: Denies: Shortness of Breath Cardiovascular: Denies: Chest Pain, Dyspnea on Exertion, Lightheadedness Gastrointestinal: Reports: Decreased Appetite, Nausea, Vomiting. Denies: Abdominal Pain Musculoskeletal: Reports: Joint Pain Skin: Reports: No Symptoms Neurological: Reports: Difficulty Walking, Weakness, Gait Disturbance. Denies: Confusion Psychiatric: Denies: Depression, Anxiety, Agitation, Hallucinations, Suicidal Ideation, Homicidal Ideation Systems Review Comment:: She had an uneventful night. Pain is controlled. She is about the same still has bilious emesis. - Patient Data Vitals - Most Recent: Last Vital Signs Temp 36.7 C 11/26/18 04:28 Pulse 92 11/26/18 04:28 Resp 16 11/26/18 04:28 BP 132/89 11/26/18 04:28 Pulse Ox 95 11/26/18 04:28 Weight - Most Recent: 65.272 kg I&O - Last 24 Hours: Intake & Output 11/25/18 11/26/18 11/26/18 22:59 06:59 14:59 Intake Total 15 Balance 15 Med Orders - Current: Current Medications Acetaminophen (Tylenol) 650 mg PO Q4H PRN PRN Reason: Pain (Mild 1-3)/fever Hydrocodone Bitart/Acetaminophen ([place] 325-5 Mg) 1 tab PO Q4H PRN PRN Reason: Pain (moderate 4-6) Albuterol (Proventil Neb Soln) 0.63 mg INH ASDIRECTED PRN PRN Reason: Shortness of Breath Albuterol/Ipratropium (Duoneb 3.0-0.5 Mg/3 Ml) 3 ml NEB Q4H PRN PRN Reason: Shortness Of Breath/wheezing Bisacodyl (Dulcolax) 5 mg PO DAILY PRN PRN Reason: Constipation Docusate Sodium (Colace) 100 mg PO BID PRN PRN Reason: Constipation Hydromorphone HCl (Dilaudid) 0.25 mg IVPUSH Q4H PRN PRN Reason: Pain Last Admin: 11/26/18 06:42 Dose: 0.25 mg Promethazine HCl 6.25 mg/ (Sodium Chloride) 50.25 mls @ 100 mls/hr IV Q6H PRN PRN Reason: Nausea/Vomiting Last Admin: 11/24/18 23:46 Dose: 100 mls/hr Lorazepam (Ativan) 0.5 mg IV Q6H PRN PRN Reason: Anxiety Last Admin: 11/25/18 21:58 Dose: 0.5 mg Metoclopramide HCl (Reglan) 10 mg IVPUSH Q6H PRN PRN Reason: Nausea/Vomiting Last Admin: 11/26/18 06:34 Dose: 10 mg Metoprolol Tartrate (Lopressor) 5 mg IVPUSH Q4H PRN PRN Reason: Tachycardia Last Admin: 11/20/18 22:14 Dose: 5 mg Miscellaneous Information (Remove Patch) 1 ea TRDERM Q72H [facility] Last Admin: 11/25/18 16:46 Dose: 1 ea Ondansetron HCl (Zofran) 4 mg IV Q6H PRN PRN Reason: Nausea/Vomiting Last Admin: 11/25/18 21:59 Dose: 4 mg Ondansetron HCl (Zofran Odt) 4 mg PO Q4H PRN PRN Reason: Nausea Scopolamine (Transderm-Scop) 1.5 mg TRDERM Q72H PRN PRN Reason: Nausea/Vomiting Last Admin: 11/25/18 16:47 Dose: 1.5 mg Senna/Docusate Sodium (Senna Plus) 1 tab PO BID PRN PRN Reason: Constipation Sodium Chloride (Saline Flush) 10 ml FLUSH ASDIRECTED PRN PRN Reason: Keep Vein Open Last Admin: 11/19/18 07:25 Dose: 10 ml Zolpidem Tartrate (Ambien) 5 mg PO BEDTIME PRN PRN Reason: Sleep Discontinued Medications Albuterol/Ipratropium (Duoneb 3.0-0.5 Mg/3 Ml) 3 ml INH TIDRT [facility] Last Admin: 11/23/18 23:59 Dose: Not Given Bisacodyl (Dulcolax) 10 mg RECTAL ONETIME ONE Stop: 11/25/18 18:40 Last Admin: 11/25/18 18:47 Dose: 10 mg Budesonide (Pulmicort) 0.5 mg INH BIDRT [facility] Last Admin: 11/23/18 23:59 Dose: Not Given Cyanocobalamin (Vitamin B12) 1,000 mcg IM Q14D [facility] Last Admin: 11/20/18 08:21 Dose: Not Given Cyanocobalamin (Vitamin B12) 1,000 mcg IM Q14D [facility] Last Admin: 11/20/18 09:11 Dose: Not Given Denosumab (Prolia) 60 mg SUBCUT ASDIRECTED [facility] Dextrose/Water (Dextrose 50% In Water) 25 ml IVPUSH ASDIRECTED PRN PRN Reason: hypoglycemia Last Admin: 11/20/18 11:38 Dose: 25 ml Diatrizoate Meglum/Diatrizoate Sod (Gastrografin 37%) 90 ml PO ONETIME ONE Stop: 11/19/18 07:56 Last Admin: 11/19/18 09:21 Dose: 90 ml Diphenhydramine HCl (Benadryl) 50 mg IVPUSH ONETIME ONE Stop: 11/20/18 19:01 Last Admin: 11/20/18 19:08 Dose: 50 mg Diphenhydramine HCl (Benadryl) Confirm Administered Dose 50 mg .ROUTE .STK-MED ONE Stop: 11/20/18 19:08 Last Admin: 11/20/18 20:01 Dose: Not Given Ferrous Sulfate (Ferrous Sulfate) 325 mg PO DAILY [facility] Last Admin: 11/23/18 09:33 Dose: Not Given Fluticasone Propionate (Flonase) 1 - 2 gm NASBOTH DAILY [facility] Last Admin: 11/23/18 09:20 Dose: 1 spray Furosemide (Lasix) 10 mg IVPUSH NOW ONE Stop: 11/24/18 10:23 Last Admin: 11/24/18 10:49 Dose: 10 mg Heparin Sodium (Porcine) (Heparin Sodium) 5,000 units SUBCUT Q8H [facility] Last Admin: 11/23/18 22:40 Dose: Not Given Hydromorphone HCl (Dilaudid) 0.5 mg IVPUSH ONETIME ONE Stop: 11/19/18 07:08 Last Admin: 11/19/18 07:24 Dose: 0.5 mg Sodium Chloride (Normal Saline) 1,000 mls @ 1,000 mls/hr IV .BOLUS STA Stop: 11/19/18 08:05 Last Admin: 11/19/18 07:24 Dose: 1,000 mls/hr Potassium Chloride 10 meq/ (Premix) 100 mls @ 100 mls/hr IV ONETIME ONE Stop: 11/19/18 10:44 Last Admin: 11/19/18 10:21 Dose: 100 mls/hr Sodium Chloride (Normal Saline) Confirm Administered Dose 1,000 mls @ as directed .ROUTE .STK-MED ONE Stop: 11/19/18 10:18 Last Admin: 11/19/18 10:32 Dose: Not Given Sodium Chloride (Normal Saline) 1,000 mls @ 1,000 mls/hr IV ONETIME ONE Stop: 11/19/18 13:53 Last Admin: 11/19/18 13:01 Dose: 1,000 mls/hr Potassium Chloride 10 meq/ (Premix) 100 mls @ 100 mls/hr IV Q1H [facility] Stop: 11/19/18 22:14 Last Admin: 11/20/18 00:49 Dose: 100 mls/hr Sodium Chloride (Normal Saline) 1,000 mls @ 50 mls/hr IV ASDIRECTED [facility] Stop: 11/19/18 23:30 Last Admin: 11/19/18 17:17 Dose: 50 mls/hr Lactated Ringer's (Ringers, Lactated) 1,000 mls @ 999 mls/hr IV .BOLUS ONE Stop: 11/19/18 21:10 Last Admin: 11/19/18 20:21 Dose: 999 mls/hr Lactated Ringer's (Ringers, Lactated) 1,000 mls @ 150 mls/hr IV ASDIRECTED [facility] Last Admin: 11/20/18 04:54 Dose: 150 mls/hr Magnesium Sulfate 2 gm/ Premix 50 mls @ 25 mls/hr IV ONETIME ONE Stop: 11/19/18 23:02 Last Admin: 11/19/18 22:00 Dose: 25 mls/hr Potassium Chloride 10 meq/ (Premix) 100 mls @ 100 mls/hr IV Q1H [facility] Stop: 11/20/18 03:29 Last Admin: 11/20/18 07:05 Dose: 100 mls/hr Dextrose/Lactated Ringer's (Dextrose 5%-Lactated Ringers) 1,000 mls @ 125 mls/ hr IV ASDIRECTED [facility] Dextrose/Lactated Ringer's (Dextrose 5%-Lactated Ringers) 1,000 mls @ 150 mls/ hr IV ASDIRECTED [facility] Last Admin: 11/21/18 21:55 Dose: 150 mls/hr Potassium Chloride 10 meq/ (Premix) 100 mls @ 100 mls/hr IV Q1H [facility] Stop: 11/20/18 18:59 Last Admin: 11/20/18 18:38 Dose: 100 mls/hr Magnesium Sulfate 2 gm/ Premix 50 mls @ 25 mls/hr IV ONETIME ONE Stop: 11/21/18 09:59 Last Admin: 11/21/18 08:12 Dose: 25 mls/hr Potassium Chloride 10 meq/ (Premix) 100 mls @ 100 mls/hr IV Q1H [facility] Stop: 11/21/18 13:59 Last Admin: 11/21/18 13:41 Dose: 100 mls/hr Potassium Chloride/Dextrose/Sod Cl (D5 Ns With 20 Meq Kcl) 1,000 mls @ 125 mls/ hr IV ASDIRECTED [facility] Last Admin: 11/23/18 12:40 Dose: 125 mls/hr Magnesium Sulfate 2 gm/ Premix 50 mls @ 25 mls/hr IV ONETIME ONE Stop: 11/22/18 09:59 Last Admin: 11/22/18 08:47 Dose: 25 mls/hr Potassium Chloride 10 meq/ (Premix) 100 mls @ 100 mls/hr IV NOW STA Stop: 11/22/18 08:45 Last Admin: 11/22/18 08:47 Dose: 100 mls/hr Potassium Chloride 10 meq/ (Premix) 100 mls @ 100 mls/hr IV Q1H [facility] Stop: 11/22/18 16:59 Last Admin: 11/22/18 17:21 Dose: 100 mls/hr Iopamidol (Isovue-300 (61%)) 100 ml IVPUSH ONETIME ONE Stop: 11/19/18 07:56 Last Admin: 11/19/18 15:21 Dose: Not Given Latanoprost (Xalatan 0.005% Ophth Soln) 0 ml EYEBOTH DAILY [facility] Last Admin: 11/23/18 09:20 Dose: 1 drop Lorazepam (Ativan) 0.25 mg IV Q6H PRN PRN Reason: Anxiety Last Admin: 11/20/18 08:17 Dose: 0.25 mg Lorazepam (Ativan) 0.25 mg IVPUSH ONETIME ONE Stop: 11/20/18 11:51 Last Admin: 11/20/18 11:50 Dose: 0.25 mg Metoclopramide HCl (Reglan) 10 mg IVPUSH Q6H PRN PRN Reason: Nausea/Vomiting Last Admin: 11/20/18 04:56 Dose: 10 mg Metoclopramide HCl (Reglan) 10 mg IVPUSH Q6H [facility] Last Admin: 11/23/18 23:29 Dose: 10 mg Metoprolol Tartrate (Lopressor) 25 mg PO Q12H [facility] Last Admin: 11/22/18 21:24 Dose: Not Given Midodrine (Midodrine) 10 mg PO TID PRN PRN Reason: Hypotension Last Admin: 11/22/18 12:56 Dose: 10 mg Mometasone Furoate/Formoterol Fumar (Dulera 200-5 Mcg) 2 puff IH DAILY [facility] Mometasone Furoate/Formoterol Fumar (Dulera 200-5 Mcg) 2 puff IH DAILY@0600 [facility] Last Admin: 11/23/18 06:16 Dose: Not Given Ondansetron HCl (Zofran) 4 mg IVPUSH ONETIME ONE Stop: 11/19/18 07:07 Last Admin: 11/19/18 07:24 Dose: 4 mg Pantoprazole Sodium (Protonix Iv) 40 mg IVPUSH Q12H [facility] Last Admin: 11/23/18 17:40 Dose: Not Given Potassium Chloride (Klor-Con M20) 60 meq PO ONETIME ONE Stop: 11/19/18 20:42 Last Admin: 11/20/18 08:54 Dose: Not Given Promethazine HCl (Phenergan) Confirm Administered Dose 25 mg .ROUTE .STK-MED ONE Stop: 11/23/18 10:18 Last Admin: 11/23/18 10:21 Dose: Not Given Sodium Chloride (Saline Flush) 10 ml FLUSH ONETIME ONE Stop: 11/19/18 07:56 Last Admin: 11/19/18 10:21 Dose: 10 ml Sucralfate (Carafate) 1 gm PO QIDACANDBED [facility] Last Admin: 11/21/18 11:59 Dose: Not Given - Exam General: Lethargic HEENT: Pupils Equal, Pupils Reactive, Mucous Membr. Moist/[place] Neck: Supple Lungs: Normal Respiratory Effort, Decreased Breath Sounds Cardiovascular: Regular Rate, Regular Rhythm GI/Abdominal Exam: Normal Bowel Sounds, Soft, Non-Tender, No Organomegaly, No Distention, No Abnormal Bruit (Female) Exam: Deferred Back Exam: Normal Inspection, Decreased Range of Motion Extremities: Non-Tender (left knee), Normal Capillary Refill, Limited Range of Motion Peripheral Pulses: 2+: Dorsalis Pedis (L), Dorsalis Pedis (R) Skin: Warm, Dry, Intact, Ecchymosis (on bilateral lower extremity) Neurological: No New Focal Deficit. No: Normal Gait Psy/Mental Status: Depressed. 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 Mars - S/p Laparotomy with RAMESH/SBO radical tumor debulking, resection of the terminal ileum and cecum with re-anastomosis, pelvic and para-aortic lymphadenopathy, with ureteral resection and re-anastomosis and placement of venous access port - She follow Dr. Montes in [place] with follow up PET scan for next Sunday - Report from Dr. Uribe's states "patient understand this is incurable" Colonic Ileus - Has nausea, vomiting and abdominal pain - CT scan shows mild colonic ileus - Has Right Colon Cancer with Signet Ring and Diffuse Peritoneal Carcinomatosis - Supportive Care, IV Hydration and PRN Anti-emesis - KUB shows colonic ileus Hypokalemia/Hypomagnesemia/Hypocalcemia, - Likely worsen - K of 2.3-->2.4--> 2.9-->3.7; Mg of 1.5--> 1.9-->1.8; Corrected Ca of 7.1--> 6.8--> 6.4 - 2/2 GI Loss - She is not eating or drinking - Replete IV potassium Hypoalbuminemia - Albumin of 2.3 - 2/2 Protein wasting - Dietary consult for weight management Malnutrition - 2/2 Cancer -induced cachexia - BMI of 17.5 - Dietary consult for weight management - Discussed best option with family which is tube feeding - is thinking TPN or infusion - CONTROL SUPERVISOR cleared her for pureed and normal liquid diet but patient not able to tolerate it Right Knee Pain - Had obvious bruises on and near right knee - X-ray shows osteopenia with mild arthritis - PRN pain medication and PT/OT to assess and treat End of Life Care - Family rescinded her code status to DNR/DNI with Treatment - Today they informed me they would like to pursue treatment to include PEG tube - Not sure if they are receptive to Hospice/Palliative Care Resolved: Dehydration, Improved - 2/2 poor intake - She is clinically dry - IV fluids and monitor fo urine output S/p Relative Hypotension - 2/2 poor fluid intake - She is not taking any of her maintenance medications - Volume resuscitation - If able to swallow pending CONTROL SUPERVISOR eval; we will provide PRN Midodrine for hypotension Chronic: AR, Glaucoma, Asthma, COPD, Gastritis, GERD, PUD, CKD Stage 3, Diverticulosis, Hx/o Diffuse Cystic Mastopathy, Osteoporosis, Anemia, Ovarian CA , Anxiety, Depression and Malnutrition Plan: No change in her overall health. DVT/Stroke Prophylaxis Will resume IV fluid for hydration RT/RT/OT to assess and treat SW/CM for d/c planning Code status: DNR/DNI/with treatment Overall prognosis is very poor. Additional treatment will be based on Dr. Montes recommendations per family's request Spoke to Dr. Montes today and he has no further recommendations but Hospice/ Palliative Care at this point. However he will call me back today after he sees patient's for afternoon clinic. Art will be accompanied by his sister- in-law and also encouraged his son, Jimmy to come along so they can all speak with Dr. Montes and relay all concerns and questions.
[2018-11-26] MEDS: Ondansetron 4 MG/2 ML SDV IV PRN ×2 (10:02→17:33)
[2018-11-26] MEDS ORDERED: Dextrose 5%-Lact Ringers w/KCl 1,000 ML IV SCH (15:00)
[2018-11-26] MEDS ORDERED: MVI, Adult with Vitamin K 10 ML in Sodium Chloride 0.9% 500 ML IV SCH ×2 (15:00)
--- NOTE | 2018-11-26 20:20 | PCM.DCSUM1 ---
Discharge Summary - Hospital Course Brief History: This is a 73 yo elderly white female with past medical hx/o AR, Glaucoma, Asthma, COPD, Gastritis, GERD, PUD, CKD Stage 3, Diverticulosis, Hx/o Diffuse Cystic Mastopathy, Osteoporosis, Anemia, Ovarian CA, Anxiety, Depression and Malnutrition who comes in with complaints of abdominal pain associated with nausea,vomiting and diarrhea that started 3 weeks ago. She having unusual diet or drink. No travel outside the country. However she was recently diagnosed with ovarian cancer s/p tumor resection in [place]. She is not on chemotherapy. She state she ran out of her zofran and feels like she is dehydrated. She intermittently constipated. Her last bowel movement was yesterday. Her initial work up in ED shows a fairly remarkable CBC. Her chemistry is significant for K of 2.3, BUN of 29, Cr fo 1.6, Ca of 7.1, AST of 12, Total Protein of 5.6, and Albumin of 2.3. Patient is primarily being admitted for management of colonic ileus and electrolytes abnormality. Diagnosis: Stroke: No Modified Becky Scale: No Symptoms at All Modified Becky Scale Score: 0 - Discharge Data Discharge Date: 11/26/18 Discharge Disposition: DC/Tfer to Acute Hospital 02 Condition: Poor - Patient Summary/Data Operative Procedure(s) Performed: None Complications: None Consults: Consultations 11/19/18 16:03 Consult to Case Management/Mail Processor [CONS] Routine Consult to Spiritual Care [CONS] Routine Respiratory Care Assess and Treatment [CONS] Routine 11/21/18 09:49 Consult to Speech Language Pathology [NIGHT GUARD Evaluation and Treatment] [CONS] Routine 11/25/18 13:11 Consult to Physician [CONS] Routine Labs Pending at D/C: None Recommended Follow-up Testing/Procedures: None Planned Operative Procedure(s) after DC: None Hospital Course: Patient was primarily admitted for failure to thrive due to advanced metastatic colon cancer. She was severely dehydrated and had not been eating or drinking adequately for the past 3 weeks. However she was volume resuscitated and we were quick to correct her electrolytes abnormality. Unfortunately, we were not able to get her any better than her baseline. Hence her family requested transfer to [place] for upper level of care. We were able to transfer her with the help of Dr. Montes, patient's oncologist. Her overall prognosis however remains extremely poor. - Patient Instructions Diet: Usual Diet as Tolerated Activity: As Tolerated Driving: Do Not Drive Showering/Bathing: May Shower Notify Provider of: Fever, Increased Pain, Swelling and Redness, Nausea and/or Vomiting Other/Special Instructions: - Transfer to [facility] unders the services of Dr. El, Hospitalist. - Drs. Montes and Sonia will be cosulting - Discharge Plan *PRESCRIPTION DRUG MONITORING PROGRAM REVIEWED*: Not Applicable *COPY OF PRESCRIPTION DRUG MONITORING REPORT IN PATIENT FILIBERTO: Not Applicable Home Medications: Home Meds Albuterol Sulfate 1 puff INH ASDIRECTED PRN 11/18/13 [History] Albuterol/Ipratropium [DuoNeb 3.0-0.5 MG/3 ML] 3 ml INH TID 10/18/15 [History] Budesonide [Pulmicort] 1 dose INH BID 10/18/15 [History] Cyanocobalamin (Vitamin B-12) [Vitamin B-12] 1,000 mcg INJECT Q14D 10/18/15 [ History] Denosumab [Prolia] 60 mg SUBCUT ASDIRECTED 10/18/15 [History] Ferrous Sulfate [Iron] 1 tab PO DAILY 11/15/17 [History] Fluticasone Propionate [Flonase] 1 - 2 spray NASBOTH DAILY 11/15/17 [History] Fluticasone/Vilanterol [Breo Ellipta 200-25 Mcg INH] 1 puff INH DAILY 11/15/17 [ History] Latanoprost 1 drop EYEBOTH DAILY 11/15/17 [History] Ondansetron [Ondansetron ODT] 4 mg PO Q4H PRN 11/15/17 [History] Sucralfate [Carafate] 1 gm PO QIDACANDBED 11/19/18 [History] Oxygen Therapy Mode: Room Air Patient Handouts: Hypercalcemia, Confusion, Leukocytosis, Urinary Tract Infection, Adult, Nausea, Adult, [id number] Referrals: Peter Banks MD [Primary Care Provider] - - Discharge Summary/Plan Comment DC Time >30 min.: No Discharge Summary/Plan Comment: Transfer to [facility] for possible PEG tube placement - General Info Date of Service: 11/26/18 Admission Dx/Problem (Free Text: Admission Diagnosis/Problem Admission Diagnosis/Problem Ileus Subjective Update: Follow Up Functional Status: Reports: Pain Controlled, Urinating. Denies: New Symptoms - Review of Systems General: Reports: Weakness, Fatigue. Denies: Fever, Chills HEENT: Reports: No Symptoms Pulmonary: Denies: Shortness of Breath Cardiovascular: Denies: Chest Pain, Dyspnea on Exertion, Lightheadedness Gastrointestinal: Reports: Nausea, Vomiting. Denies: Abdominal Pain Genitourinary: Reports: No Symptoms Musculoskeletal: Reports: No Symptoms, Leg Pain Skin: Reports: Bruising Neurological: Reports: Difficulty Walking, Weakness, Gait Disturbance. Denies: Confusion Psychiatric: Denies: Confusion, Anxiety, Agitation, Hallucinations - Patient Data Vitals - Most Recent: Last Vital Signs Temp 36.7 C 11/26/18 14:09 Pulse 93 11/26/18 16:06 Resp 20 11/26/18 14:09 BP 109/81 11/26/18 14:09 Pulse Ox 95 11/26/18 16:49 Weight - Most Recent: 65.272 kg I&O - Last 24 hours: Intake & Output 11/26/18 11/26/18 11/26/18 06:59 14:59 22:59 Intake Total 15 400 Output Total 300 Balance 15 100 Med Orders - Current: Current Medications Acetaminophen (Tylenol) 650 mg PO Q4H PRN PRN Reason: Pain (Mild 1-3)/fever Hydrocodone Bitart/Acetaminophen ([place] 325-5 Mg) 1 tab PO Q4H PRN PRN Reason: Pain (moderate 4-6) Albuterol (Proventil Neb Soln) 0.63 mg INH ASDIRECTED PRN PRN Reason: Shortness of Breath Albuterol/Ipratropium (Duoneb 3.0-0.5 Mg/3 Ml) 3 ml NEB Q4H PRN PRN Reason: Shortness Of Breath/wheezing Last Admin: 11/26/18 16:49 Dose: 3 ml Bisacodyl (Dulcolax) 5 mg PO DAILY PRN PRN Reason: Constipation Docusate Sodium (Colace) 100 mg PO BID PRN PRN Reason: Constipation Hydromorphone HCl (Dilaudid) 0.25 mg IVPUSH Q4H PRN PRN Reason: Pain Last Admin: 11/26/18 14:07 Dose: 0.25 mg Promethazine HCl 6.25 mg/ (Sodium Chloride) 50.25 mls @ 100 mls/hr IV Q6H PRN PRN Reason: Nausea/Vomiting Last Admin: 11/24/18 23:46 Dose: 100 mls/hr Potassium Cl/Dextrose/Lact Ringer's (D5 Lr With 20 Meq Kcl) 1,000 mls @ 100 mls /hr IV ASDIRECTED [facility] Last Admin: 11/26/18 15:42 Dose: 100 mls/hr Multivitamins/Minerals 10 ml/ (Sodium Chloride) 510 mls @ 255 mls/hr IV Q24H [facility] Last Admin: 11/26/18 15:42 Dose: 255 mls/hr Lorazepam (Ativan) 0.5 mg IV Q6H PRN PRN Reason: Anxiety Last Admin: 11/25/18 21:58 Dose: 0.5 mg Metoclopramide HCl (Reglan) 10 mg IVPUSH Q6H PRN PRN Reason: Nausea/Vomiting Last Admin: 11/26/18 16:36 Dose: 10 mg Metoprolol Tartrate (Lopressor) 5 mg IVPUSH Q4H PRN PRN Reason: Tachycardia Last Admin: 11/20/18 22:14 Dose: 5 mg Miscellaneous Information (Remove Patch) 1 ea TRDERM Q72H [facility] Last Admin: 11/25/18 16:46 Dose: 1 ea Ondansetron HCl (Zofran) 4 mg IV Q6H PRN PRN Reason: Nausea/Vomiting Last Admin: 11/26/18 17:33 Dose: 4 mg Ondansetron HCl (Zofran Odt) 4 mg PO Q4H PRN PRN Reason: Nausea Scopolamine (Transderm-Scop) 1.5 mg TRDERM Q72H PRN PRN Reason: Nausea/Vomiting Last Admin: 11/25/18 16:47 Dose: 1.5 mg Senna/Docusate Sodium (Senna Plus) 1 tab PO BID PRN PRN Reason: Constipation Sodium Chloride (Saline Flush) 10 ml FLUSH ASDIRECTED PRN PRN Reason: Keep Vein Open Last Admin: 11/19/18 07:25 Dose: 10 ml Zolpidem Tartrate (Ambien) 5 mg PO BEDTIME PRN PRN Reason: Sleep Discontinued Medications Albuterol/Ipratropium (Duoneb 3.0-0.5 Mg/3 Ml) 3 ml INH TIDRT [facility] Last Admin: 11/23/18 23:59 Dose: Not Given Bisacodyl (Dulcolax) 10 mg RECTAL ONETIME ONE Stop: 11/25/18 18:40 Last Admin: 11/25/18 18:47 Dose: 10 mg Budesonide (Pulmicort) 0.5 mg INH BIDRT [facility] Last Admin: 11/23/18 23:59 Dose: Not Given Cyanocobalamin (Vitamin B12) 1,000 mcg IM Q14D [facility] Last Admin: 11/20/18 08:21 Dose: Not Given Cyanocobalamin (Vitamin B12) 1,000 mcg IM Q14D [facility] Last Admin: 11/20/18 09:11 Dose: Not Given Denosumab (Prolia) 60 mg SUBCUT ASDIRECTED [facility] Dextrose/Water (Dextrose 50% In Water) 25 ml IVPUSH ASDIRECTED PRN PRN Reason: hypoglycemia Last Admin: 11/20/18 11:38 Dose: 25 ml Diatrizoate Meglum/Diatrizoate Sod (Gastrografin 37%) 90 ml PO ONETIME ONE Stop: 11/19/18 07:56 Last Admin: 11/19/18 09:21 Dose: 90 ml Diphenhydramine HCl (Benadryl) 50 mg IVPUSH ONETIME ONE Stop: 11/20/18 19:01 Last Admin: 11/20/18 19:08 Dose: 50 mg Diphenhydramine HCl (Benadryl) Confirm Administered Dose 50 mg .ROUTE .STK-MED ONE Stop: 11/20/18 19:08 Last Admin: 11/20/18 20:01 Dose: Not Given Ferrous Sulfate (Ferrous Sulfate) 325 mg PO DAILY [facility] Last Admin: 11/23/18 09:33 Dose: Not Given Fluticasone Propionate (Flonase) 1 - 2 gm NASBOTH DAILY [facility] Last Admin: 11/23/18 09:20 Dose: 1 spray Furosemide (Lasix) 10 mg IVPUSH NOW ONE Stop: 11/24/18 10:23 Last Admin: 11/24/18 10:49 Dose: 10 mg Heparin Sodium (Porcine) (Heparin Sodium) 5,000 units SUBCUT Q8H [facility] Last Admin: 11/23/18 22:40 Dose: Not Given Hydromorphone HCl (Dilaudid) 0.5 mg IVPUSH ONETIME ONE Stop: 11/19/18 07:08 Last Admin: 11/19/18 07:24 Dose: 0.5 mg Sodium Chloride (Normal Saline) 1,000 mls @ 1,000 mls/hr IV .BOLUS STA Stop: 11/19/18 08:05 Last Admin: 11/19/18 07:24 Dose: 1,000 mls/hr Potassium Chloride 10 meq/ (Premix) 100 mls @ 100 mls/hr IV ONETIME ONE Stop: 11/19/18 10:44 Last Admin: 11/19/18 10:21 Dose: 100 mls/hr Sodium Chloride (Normal Saline) Confirm Administered Dose 1,000 mls @ as directed .ROUTE .STK-MED ONE Stop: 11/19/18 10:18 Last Admin: 11/19/18 10:32 Dose: Not Given Sodium Chloride (Normal Saline) 1,000 mls @ 1,000 mls/hr IV ONETIME ONE Stop: 11/19/18 13:53 Last Admin: 11/19/18 13:01 Dose: 1,000 mls/hr Potassium Chloride 10 meq/ (Premix) 100 mls @ 100 mls/hr IV Q1H [facility] Stop: 11/19/18 22:14 Last Admin: 11/20/18 00:49 Dose: 100 mls/hr Sodium Chloride (Normal Saline) 1,000 mls @ 50 mls/hr IV ASDIRECTED [facility] Stop: 11/19/18 23:30 Last Admin: 11/19/18 17:17 Dose: 50 mls/hr Lactated Ringer's (Ringers, Lactated) 1,000 mls @ 999 mls/hr IV .BOLUS ONE Stop: 11/19/18 21:10 Last Admin: 11/19/18 20:21 Dose: 999 mls/hr Lactated Ringer's (Ringers, Lactated) 1,000 mls @ 150 mls/hr IV ASDIRECTED [facility] Last Admin: 11/20/18 04:54 Dose: 150 mls/hr Magnesium Sulfate 2 gm/ Premix 50 mls @ 25 mls/hr IV ONETIME ONE Stop: 11/19/18 23:02 Last Admin: 11/19/18 22:00 Dose: 25 mls/hr Potassium Chloride 10 meq/ (Premix) 100 mls @ 100 mls/hr IV Q1H [facility] Stop: 11/20/18 03:29 Last Admin: 11/20/18 07:05 Dose: 100 mls/hr Dextrose/Lactated Ringer's (Dextrose 5%-Lactated Ringers) 1,000 mls @ 125 mls/ hr IV ASDIRECTED [facility] Dextrose/Lactated Ringer's (Dextrose 5%-Lactated Ringers) 1,000 mls @ 150 mls/ hr IV ASDIRECTED [facility] Last Admin: 11/21/18 21:55 Dose: 150 mls/hr Potassium Chloride 10 meq/ (Premix) 100 mls @ 100 mls/hr IV Q1H [facility] Stop: 11/20/18 18:59 Last Admin: 11/20/18 18:38 Dose: 100 mls/hr Magnesium Sulfate 2 gm/ Premix 50 mls @ 25 mls/hr IV ONETIME ONE Stop: 11/21/18 09:59 Last Admin: 11/21/18 08:12 Dose: 25 mls/hr Potassium Chloride 10 meq/ (Premix) 100 mls @ 100 mls/hr IV Q1H [facility] Stop: 11/21/18 13:59 Last Admin: 11/21/18 13:41 Dose: 100 mls/hr Potassium Chloride/Dextrose/Sod Cl (D5 Ns With 20 Meq Kcl) 1,000 mls @ 125 mls/ hr IV ASDIRECTED [facility] Last Admin: 11/23/18 12:40 Dose: 125 mls/hr Magnesium Sulfate 2 gm/ Premix 50 mls @ 25 mls/hr IV ONETIME ONE Stop: 11/22/18 09:59 Last Admin: 11/22/18 08:47 Dose: 25 mls/hr Potassium Chloride 10 meq/ (Premix) 100 mls @ 100 mls/hr IV NOW STA Stop: 11/22/18 08:45 Last Admin: 11/22/18 08:47 Dose: 100 mls/hr Potassium Chloride 10 meq/ (Premix) 100 mls @ 100 mls/hr IV Q1H [facility] Stop: 11/22/18 16:59 Last Admin: 11/22/18 17:21 Dose: 100 mls/hr Iopamidol (Isovue-300 (61%)) 100 ml IVPUSH ONETIME ONE Stop: 11/19/18 07:56 Last Admin: 11/19/18 15:21 Dose: Not Given Latanoprost (Xalatan 0.005% Ophth Soln) 0 ml EYEBOTH DAILY [facility] Last Admin: 11/23/18 09:20 Dose: 1 drop Lorazepam (Ativan) 0.25 mg IV Q6H PRN PRN Reason: Anxiety Last Admin: 11/20/18 08:17 Dose: 0.25 mg Lorazepam (Ativan) 0.25 mg IVPUSH ONETIME ONE Stop: 11/20/18 11:51 Last Admin: 11/20/18 11:50 Dose: 0.25 mg Metoclopramide HCl (Reglan) 10 mg IVPUSH Q6H PRN PRN Reason: Nausea/Vomiting Last Admin: 11/20/18 04:56 Dose: 10 mg Metoclopramide HCl (Reglan) 10 mg IVPUSH Q6H [facility] Last Admin: 11/23/18 23:29 Dose: 10 mg Metoprolol Tartrate (Lopressor) 25 mg PO Q12H [facility] Last Admin: 11/22/18 21:24 Dose: Not Given Midodrine (Midodrine) 10 mg PO TID PRN PRN Reason: Hypotension Last Admin: 11/22/18 12:56 Dose: 10 mg Mometasone Furoate/Formoterol Fumar (Dulera 200-5 Mcg) 2 puff IH DAILY [facility] Mometasone Furoate/Formoterol Fumar (Dulera 200-5 Mcg) 2 puff IH DAILY@0600 [facility] Last Admin: 11/23/18 06:16 Dose: Not Given Ondansetron HCl (Zofran) 4 mg IVPUSH ONETIME ONE Stop: 11/19/18 07:07 Last Admin: 11/19/18 07:24 Dose: 4 mg Pantoprazole Sodium (Protonix Iv) 40 mg IVPUSH Q12H [facility] Last Admin: 11/23/18 17:40 Dose: Not Given Potassium Chloride (Klor-Con M20) 60 meq PO ONETIME ONE Stop: 11/19/18 20:42 Last Admin: 11/20/18 08:54 Dose: Not Given Promethazine HCl (Phenergan) Confirm Administered Dose 25 mg .ROUTE .STK-MED ONE Stop: 11/23/18 10:18 Last Admin: 11/23/18 10:21 Dose: Not Given Sodium Chloride (Saline Flush) 10 ml FLUSH ONETIME ONE Stop: 11/19/18 07:56 Last Admin: 11/19/18 10:21 Dose: 10 ml Sucralfate (Carafate) 1 gm PO QIDACANDBED [facility] Last Admin: 11/21/18 11:59 Dose: Not Given - Exam General: Reports: Lethargic HEENT: Reports: Pupils Equal, Pupils Reactive, Mucous Membr. Moist/[place] Neck: Reports: Supple Lungs: Reports: Clear to Auscultation, Normal Respiratory Effort Cardiovascular: Reports: Regular Rate, Regular Rhythm GI/Abdominal Exam: Normal Bowel Sounds, Soft, Non-Tender, No Organomegaly, No Distention, No Abnormal Bruit (Female) Exam: Deferred Rectal (Female) Exam: Deferred Back Exam: Reports: Normal Inspection, Decreased Range of Motion Extremities: Normal Inspection, Normal Range of Motion, Non-Tender, No Pedal Edema, Normal Capillary Refill Skin: Reports: Warm, Intact Wound/Incisions: Reports: Healing Well Neurological: Reports: No New Focal Deficit. Denies: Normal Gait Psy/Mental Status: Reports: Alert, Depressed. Denies: Normal Affect
[2018-11-26] MEDS: Promethazine 6.25 MG in Sodium Chloride 0.9% 50 ML IV PRN (20:31)
[2018-11-26] MEDS: LORazepam 2 MG/ML SDV IV PRN (21:41)
[2018-11-26 23:20] VITALS: BP 103/81
== END 2018-11-26 21:55 | DRG 388 ==
LOC: JD.ED 05:28 → JD.MS 13:56
PROVIDERS: ADMIT Internal Medicine; ATTEND Internal Medicine
DX: K56.7 Ileus, unspecified (principal); E43 Unspecified severe protein-calorie malnutrition; C78.6 Secondary malignant neoplasm of retroperitoneum and peritoneum; C18.9 Malignant neoplasm of colon, unspecified; E46 Unspecified protein-calorie malnutrition; N28.9 Disorder of kidney and ureter, unspecified; R11.2 Nausea with vomiting, unspecified; R64 Cachexia; J44.9 Chronic obstructive pulmonary disease, unspecified; I10 Essential (primary) hypertension; Z51.5 Encounter for palliative care; Z66 Do not resuscitate; K21.9 Gastro-esophageal reflux disease without esophagitis; N18.3 Chronic kidney disease, stage 3 (moderate); E87.6 Hypokalemia; E83.42 Hypomagnesemia; E88.09 Other disorders of plasma-protein metabolism, not elsewhere classified; E86.0 Dehydration; I95.9 Hypotension, unspecified; E83.51 Hypocalcemia; M25.561 Pain in right knee; N94.89 Other specified conditions associated with female genital organs and menstrual cycle; M81.0 Age-related osteoporosis without current pathological fracture; F41.9 Anxiety disorder, unspecified; F32.9 Major depressive disorder, single episode, unspecified; I12.9 Hypertensive chronic kidney disease with stage 1 through stage 4 chronic kidney disease, or unspecified chronic kidney disease; H40.9 Unspecified glaucoma; Z87.11 Personal history of peptic ulcer disease; Z85.43 Personal history of malignant neoplasm of ovary; Z68.1 Body mass index [BMI] 19.9 or less, adult; Z79.899 Other long term (current) drug therapy; Z86.010 Personal history of colon polyps; Z98.49 Cataract extraction status, unspecified eye; Z87.891 Personal history of nicotine dependence
CPT/HCPCS: 36415; 74176; 80053; 83690; 85025; 96361; 96365; 96375; 99285; J1170; J2405; J3480; J7040 ×2; Q9963; 51798; 73560-26-RT; 73560-RT; 74018; 74018-26; 74150; 74150-26; 80048; 81001; 82962; 83605; 83735; 84132; 86140; 87086; 87088; 87186; 92526-GN; 92610-GN; 93005; 94640; 94760; 94761; 96523; 97110-GO; 97110-GP; 97162-GP; 97165-GO; 97530-GO; 97530-GP; 99284; A9270-GY; C9113; J1200; J1644; J2060; J2550; J2765; J3475; J3490; J7042; J7050; J7060; J7120; J7620-GY